=== PATIENT | male | born 1940 | race Caucasian/White ===

== ENCOUNTER 2018-09-09 12:37 | Outpatient (REF) | payer MEDICARE, BC, SELFPAY ==
[2018-09-09 21:46] LABS: Anion Gap 10.7 mmol/L (3-11); BUN 29 mg/dL (7-18); CO2 27.3 mmol/L (21.0-32.0); CREATININE 1.85 mg/dL (0.70-1.30); Calcium 9.6 mg/dL (8.5-10.1); Chloride 99 mmol/L (98-107); Cholesterol 132 mg/dL (50-200); Estimated GFR 35.44 (mL/min/1.73m2); Glucose 175 mg/dL (70-100); HDL Cholesterol 47 mg/dL (40-60); LDL CHOLESTEROL 64 mg/dL (<100); Magnesium 1.9 mg/dL (1.8-2.4); Potassium 4.5 mmol/L (3.5-5.1); Sodium 137 mmol/L (136-145); Triglyceride 157 mg/dL (30-150)
== END 2018-09-09 12:57 ==
LOC: NCHCN 12:37
PROVIDERS: PCP Specialist/Technologist Athletic Trainer; Visit Provider Specialist/Technologist Athletic Trainer
DX: E78.5 Hyperlipidemia, unspecified (principal); E11.9 Type 2 diabetes mellitus without complications; I10 Essential (primary) hypertension
CPT/HCPCS: 80048; 80061; 83721; 83735

== ENCOUNTER 2018-09-15 13:01 | Outpatient (REF) | payer MEDICARE, BC, SELFPAY ==
[2018-09-15 20:30] LABS: Anion Gap 12.8 mmol/L (3-11); BUN 20 mg/dL (7-18); CO2 25.2 mmol/L (21.0-32.0); CREATININE 1.85 mg/dL (0.70-1.30); Calcium 9.6 mg/dL (8.5-10.1); Chloride 99 mmol/L (98-107); Estimated GFR 35.44 (mL/min/1.73m2); Glucose 211 mg/dL (70-100); Potassium 4.5 mmol/L (3.5-5.1); Sodium 137 mmol/L (136-145)
== END 2018-09-15 13:21 ==
LOC: NCHCN 13:01
PROVIDERS: PCP Specialist/Technologist Athletic Trainer; Visit Provider Specialist/Technologist Athletic Trainer
DX: R94.4 Abnormal results of kidney function studies (principal)
CPT/HCPCS: 80048

== ENCOUNTER 2018-10-11 00:49 | Outpatient (CLI) | payer MEDICARE, BC, SELFPAY ==
--- NOTE | 2018-10-11 14:28 | DI.US_ITS ---
SYMPTOM/DIAGNOSIS: ELEVATED CREAT R94.4 RENAL ULTRASOUND: The right kidney measures 11.1 cm. There is a question of a 7 mm calculus. There is no evidence of hydronephrosis. The left kidney measures 10.2 cm and contains a 7 x 9 x 11 mm cyst. There is also a question regarding a 7 mm calculus. There is no evidence of hydronephrosis. The pre-void bladder contains 197 cc. The post void bladder contains 155 cc. The prostate is 63 cc SUMMARY: Question bilateral nonobstructing nephrolithiasis. The findings would be consistent with bladder outlet obstruction and prostatic enlargement.
== END 2018-10-11 01:09 ==
PROVIDERS: PCP Specialist/Technologist Athletic Trainer; Visit Provider Specialist/Technologist Athletic Trainer
DX: N20.0 Calculus of kidney (principal); R94.4 Abnormal results of kidney function studies; N28.1 Cyst of kidney, acquired; N40.2 Nodular prostate without lower urinary tract symptoms
CPT/HCPCS: 76770

== ENCOUNTER 2019-03-10 12:56 | Outpatient (REF) | payer MEDICARE, BC, SELFPAY ==
[2019-03-10 22:15] LABS: ALT 33 U/L (16-63); AST 24 U/L (15-37); Albumin 3.8 g/dL (3.4-5.0); Alkaline Phosphatase 68 U/L (46-116); Anion Gap 10.2 mmol/L (3-11); BUN 17 mg/dL (7-18); Bilirubin, Total 0.6 mg/dL (0.2-1.0); CO2 24.8 mmol/L (21.0-32.0); CREATININE 1.41 mg/dL (0.70-1.30); Calcium 9.1 mg/dL (8.5-10.1); Chloride 103 mmol/L (98-107); Estimated GFR 48.36 (mL/min/1.73m2); Glucose 182 mg/dL (70-100); Potassium 4.3 mmol/L (3.5-5.1); Sodium 138 mmol/L (136-145); Total Protein 7.1 g/dL (6.4-8.2)
== END 2019-03-10 13:16 ==
LOC: NCHCN 12:56
PROVIDERS: PCP Specialist/Technologist Athletic Trainer; Visit Provider Specialist/Technologist Athletic Trainer
DX: R94.4 Abnormal results of kidney function studies (principal)
CPT/HCPCS: 80053

== ENCOUNTER 2019-09-01 20:36 | Outpatient (REF) | payer MEDICARE, BC, SELFPAY ==
[2019-09-01 19:38] LABS: BUN 16 mg/dL (7-18); CREATININE 1.49 mg/dL (0.70-1.30); Estimated GFR 45.38 (mL/min/1.73m2)
== END 2019-09-01 20:56 ==
LOC: NCHCN 20:36
PROVIDERS: PCP Specialist/Technologist Athletic Trainer; Visit Provider Nurse Practitioner Family
DX: E11.9 Type 2 diabetes mellitus without complications (principal); N32.0 Bladder-neck obstruction; R94.4 Abnormal results of kidney function studies
CPT/HCPCS: 84520; 82565

== ENCOUNTER 2020-04-02 14:32 | Outpatient (REF) | payer MEDICARE, BC, SELFPAY ==
[2020-04-02 20:39] LABS: ALT 35 U/L (16-63); AST 32 U/L (15-37); Albumin 3.8 g/dL (3.4-5.0); Alkaline Phosphatase 66 U/L (46-116); Anion Gap 10.1 mmol/L (3-11); BUN 13 mg/dL (7-18); Bilirubin, Total 0.5 mg/dL (0.2-1.0); CO2 26.9 mmol/L (21.0-32.0); CREATININE 1.29 mg/dL (0.70-1.30); Calcium 9.2 mg/dL (8.5-10.1); Calculated LDL 79 mg/dL (<100); Chloride 104 mmol/L (98-107); Cholesterol 161 mg/dL (<200); Estimated GFR 53.46 (mL/min/1.73m2); Glucose 163 mg/dL (74-106); HDL Cholesterol 49 mg/dL (40-60); Potassium 4.3 mmol/L (3.5-5.1); Sodium 141 mmol/L (136-145); Triglyceride 167 mg/dL (<150)
== END 2020-04-02 14:52 ==
LOC: NCHCN 14:32
PROVIDERS: PCP Specialist/Technologist Athletic Trainer; Visit Provider Nurse Practitioner Family
DX: E78.5 Hyperlipidemia, unspecified (principal); E11.9 Type 2 diabetes mellitus without complications; I10 Essential (primary) hypertension; R94.4 Abnormal results of kidney function studies
CPT/HCPCS: 80053; 80061

== ENCOUNTER 2020-11-12 15:37 | Outpatient (REF) | payer MEDICARE, BC, SELFPAY ==
[2020-11-12 19:19] LABS: Anion Gap 13.5 mmol/L (3-11); BUN 20 mg/dL (7-18); CO2 23.5 mmol/L (21.0-32.0); CREATININE 1.7 mg/dL (0.70-1.30); Calcium 9.3 mg/dL (8.5-10.1); Chloride 99 mmol/L (98-107); Estimated GFR 38.88 (mL/min/1.73m2); Glucose 226 mg/dL (74-106); Potassium 4.6 mmol/L (3.5-5.1); Sodium 136 mmol/L (136-145)
[2020-11-12 19:23] LABS: Hemoglobin A1C 7.2 % (<5.7)
== END 2020-11-12 15:38 | disposition home or self-care (01) ==
LOC: NCHCN 15:37
PROVIDERS: PCP Specialist/Technologist Athletic Trainer; Visit Provider Nurse Practitioner Family
DX: E11.40 Type 2 diabetes mellitus with diabetic neuropathy, unspecified (principal); R94.4 Abnormal results of kidney function studies; R00.0 Tachycardia, unspecified
CPT/HCPCS: 80048; 83036

== ENCOUNTER 2020-11-16 13:25 | Outpatient (RCR) | payer MEDICARE, BC, SELFPAY ==
--- NOTE | 2020-11-16 14:30 | HOLTER_ITS ---
APPROVED REPORT Conclusion This is a 24-hour monitor ordered for indication of irregular heart rate The patient was in normal sinus rhythm for the majority the recording with an average heart rate of 8 3 bpm. There were no episodes of ventricular tachycardia and 6 brief runs of SVT with the longest lasting 7 beats. There were rare episodes of PVCs and PACs. There was no evidence of atrial fibrillation, no pauses greater than 3 seconds no evidence of high de gree heart block. There were 2 patient triggered events associated with a singular PAC and PVC.
== END 2020-11-26 23:59 | disposition home or self-care (01) ==
LOC: RT 13:25
PROVIDERS: PCP Specialist/Technologist Athletic Trainer; Visit Provider Nurse Practitioner Family
DX: I49.8 Other specified cardiac arrhythmias (principal); I49.1 Atrial premature depolarization; I49.3 Ventricular premature depolarization
CPT/HCPCS: 93227; 93225; 93226

== ENCOUNTER 2020-12-04 02:42 | Outpatient (CLI) | payer MEDICARE, BC, SELFPAY ==
--- NOTE | 2020-12-04 | DI.US_ITS ---
Exam(s) US RENAL EXAM: US RENAL CLINICAL HISTORY: ELEVATED CREATININE, R94.4. TECHNIQUE: Avendano scale, color and spectral Doppler were used. COMPARISON: US US renal from 10/11/2018 FINDINGS: Renal size in cm: Right: 10.2. Left: 10.3. Echogenicity: Normal. Hydronephrosis: No. Cyst or mass: There is a 2.6 x 2.4 x 2.2 cm simple cyst in the superior pole of the left kidney. Nephrolithiasis: No. Other findings: None. Bladder:Not well distended but grossly unremarkable. Ureteral jets: Right: Visualized and unremarkable. Left: Not seen on this examination. Prevoid vol:48 cc Postvoid vol:34 cc Prostate: 39 cc Renal color flow: Symmetric and within normal limits. IMPRESSION: 1. Limited evaluation of the urinary bladder due to incomplete distension. 2. 2.6 cm simple cyst in the superior pole of the left kidney. 3. No evidence of nephrolithiasis or hydronephrosis. DATA REPOSITORY:
== END 2020-12-04 03:02 ==
PROVIDERS: PCP Specialist/Technologist Athletic Trainer; Visit Provider Nurse Practitioner Family
DX: R94.4 Abnormal results of kidney function studies (principal); N28.1 Cyst of kidney, acquired
CPT/HCPCS: 76770

== ENCOUNTER 2021-01-07 13:01 | Outpatient (REF) | payer MEDICARE, BC, SELFPAY ==
[2021-01-07 21:38] LABS: Anion Gap 15.5 mmol/L (3-11); BUN 16 mg/dL (7-18); CO2 20.5 mmol/L (21.0-32.0); CREATININE 1.5 mg/dL (0.70-1.30); Calcium 9.1 mg/dL (8.5-10.1); Chloride 104 mmol/L (98-107); Estimated GFR 44.92 (mL/min/1.73m2); Glucose 282 mg/dL (74-106); Potassium 4.5 mmol/L (3.5-5.1); Sodium 140 mmol/L (136-145)
== END 2021-01-07 13:02 | disposition home or self-care (01) ==
LOC: NCHCN 13:01
PROVIDERS: PCP Specialist/Technologist Athletic Trainer; Visit Provider Nurse Practitioner Family
DX: R94.4 Abnormal results of kidney function studies (principal)
CPT/HCPCS: 80048

== ENCOUNTER 2022-02-03 17:42 | Outpatient (REF) | payer MEDICARE, BC, SELFPAY ==
[2022-02-03 16:45] LABS: Anion Gap 7.3 mmol/L (3-11); BUN 18 mg/dL (7-18); CO2 29.7 mmol/L (21.0-32.0); CREATININE 1.2 mg/dL (0.70-1.30); Calcium 8.9 mg/dL (8.5-10.1); Chloride 104 mmol/L (98-107); Estimated GFR 57.96 (mL/min/1.73m2); Glucose 202 mg/dL (74-106); Potassium 4.2 mmol/L (3.5-5.1); Sodium 141 mmol/L (136-145)
[2022-02-03 16:49] LABS: Hemoglobin A1C 7.5 % (<5.7)
== END 2022-02-03 17:43 | disposition home or self-care (01) ==
LOC: NCHCN 17:42
PROVIDERS: PCP Specialist/Technologist Athletic Trainer; Visit Provider Nurse Practitioner Family
DX: E11.49 Type 2 diabetes mellitus with other diabetic neurological complication (principal); I10 Essential (primary) hypertension
CPT/HCPCS: 80048; 83036

== ENCOUNTER 2023-02-02 13:50 | Outpatient (REF) | payer MEDICARE, BC, SELFPAY ==
[2023-02-02 15:39] LABS: Hemoglobin A1C 6.6 % (<5.7)
[2023-02-02 15:44] LABS: ALT 18 U/L (16-63); AST 19 U/L (15-37); Albumin 3.5 g/dL (3.4-5.0); Alkaline Phosphatase 83 U/L (46-116); Anion Gap 10.5 mmol/L (3-11); BUN 15 mg/dL (7-18); Bilirubin, Total 0.8 mg/dL (0.2-1.0); CO2 27.5 mmol/L (21.0-32.0); CREATININE 1.4 mg/dL (0.70-1.30); Calcium 9.2 mg/dL (8.5-10.1); Calculated LDL 54 mg/dL (<100); Chloride 103 mmol/L (98-107); Cholesterol 146 mg/dL (<200); Estimated GFR 49.87 (mL/min/1.73m2); Glucose 232 mg/dL (74-106); HDL Cholesterol 49 mg/dL (40-60); Potassium 4.3 mmol/L (3.5-5.1); Sodium 141 mmol/L (136-145); Total Protein 7.1 g/dL (6.4-8.2); Triglyceride 218 mg/dL (<150)
[2023-02-02 16:01] LABS: Vitamin D 25 Total 9.8 ng/mL (30-100)
== END 2023-02-02 13:51 | disposition home or self-care (01) ==
LOC: NCHCN 13:50
PROVIDERS: PCP Specialist/Technologist Athletic Trainer; Visit Provider Nurse Practitioner Family
DX: E11.49 Type 2 diabetes mellitus with other diabetic neurological complication (principal); R94.4 Abnormal results of kidney function studies; E55.9 Vitamin D deficiency, unspecified; R79.89 Other specified abnormal findings of blood chemistry
CPT/HCPCS: 80053; 80061; 82306; 83036

== ENCOUNTER 2023-05-04 14:55 | Outpatient (REF) | payer MEDICARE, BC, SELFPAY ==
[2023-05-04 16:12] LABS: Vitamin D 25 Total 25.3 ng/mL (30-100)
== END 2023-05-04 14:56 | disposition home or self-care (01) ==
LOC: NCHCN 14:55
PROVIDERS: PCP Specialist/Technologist Athletic Trainer; Visit Provider Nurse Practitioner Family
DX: E55.9 Vitamin D deficiency, unspecified (principal); E11.49 Type 2 diabetes mellitus with other diabetic neurological complication
CPT/HCPCS: 82306

== ENCOUNTER 2023-11-02 14:13 | Outpatient (REF) | payer MEDICARE, BC, SELFPAY ==
[2023-11-02 19:22] LABS: Hemoglobin A1C 6.7 % (<5.7)
[2023-11-02 19:25] LABS: ALT 25 U/L (16-63); AST 20 U/L (15-37); Albumin 3.9 g/dL (3.4-5.0); Alkaline Phosphatase 82 U/L (46-116); BUN 19 mg/dL (7-18); Bilirubin, Total 0.7 mg/dL (0.2-1.0); CREATININE 1.4 mg/dL (0.70-1.30); Calcium 9.7 mg/dL (8.5-10.1); Chloride 105 mmol/L (98-107); Estimated GFR 49.56 (mL/min/1.73m2); Glucose 143 mg/dL (74-106); Potassium 4.8 mmol/L (3.5-5.1); Sodium 144 mmol/L (136-145); Total Protein 7.1 g/dL (6.4-8.2)
[2023-11-02 20:15] LABS: Vitamin D 25 Total 26.6 ng/mL (30-100)
== END 2023-11-02 14:14 | disposition home or self-care (01) ==
LOC: NCHCN 14:13
PROVIDERS: PCP Specialist/Technologist Athletic Trainer; Visit Provider Nurse Practitioner Family
DX: E11.9 Type 2 diabetes mellitus without complications (principal); R94.4 Abnormal results of kidney function studies; E55.9 Vitamin D deficiency, unspecified
CPT/HCPCS: 80053; 82306; 83036

== ENCOUNTER 2024-03-10 16:19 | Outpatient (REF) | payer MEDICARE, BC, SELFPAY ==
[2024-03-10 16:25] LABS: ALT 26 U/L (16-63); AST 21 U/L (15-37); Albumin 3.3 g/dL (3.4-5.0); Alkaline Phosphatase 72 U/L (46-116); BUN 18 mg/dL (7-18); Bilirubin, Total 0.68 mg/dL (0.2-1.0); CREATININE 1.3 mg/dL (0.70-1.30); Calcium 9.3 mg/dL (8.5-10.1); Chloride 105 mmol/L (98-107); Estimated GFR 53.84 (mL/min/1.73m2); Glucose 221 mg/dL (74-106); Sodium 142 mmol/L (136-145); Total Protein 6.4 g/dL (6.4-8.2); Vitamin D 25 Total 38.7 ng/mL (30-100)
== END 2024-03-10 16:20 | disposition home or self-care (01) ==
LOC: NCHCN 16:19
PROVIDERS: PCP Specialist/Technologist Athletic Trainer; Visit Provider Nurse Practitioner Family
DX: E11.9 Type 2 diabetes mellitus without complications (principal); E55.9 Vitamin D deficiency, unspecified
CPT/HCPCS: 80053; 82306; 83036

== ENCOUNTER 2024-03-11 18:16 | Outpatient (REF) | payer MEDICARE, BC, SELFPAY ==
[2024-03-11 20:07] LABS: COMMENT (LAB VIEW ONLY) 136.56 mg/dL; Microalb ug/mg Crea 22.9 ug/mg Cr
== END 2024-03-11 18:17 | disposition home or self-care (01) ==
LOC: NCHCN 18:16
PROVIDERS: PCP Specialist/Technologist Athletic Trainer; Visit Provider Nurse Practitioner Family
DX: E11.9 Type 2 diabetes mellitus without complications (principal)
CPT/HCPCS: 82043; 82570

== ENCOUNTER 2024-07-26 15:24 | Outpatient (REF) | payer MEDICARE, BC, SELFPAY ==
[2024-07-26 16:15] LABS: Hemoglobin A1C 7.4 % (<5.7)
[2024-07-26 16:17] LABS: Anion Gap 6.4 mmol/L (3-11); BUN 20 mg/dL (7-18); CO2 30.6 mmol/L (21.0-32.0); CREATININE 1.4 mg/dL (0.70-1.30); Calcium 9.9 mg/dL (8.5-10.1); Calculated LDL 54 mg/dL (<100); Chloride 106 mmol/L (98-107); Cholesterol 129 mg/dL (<200); Estimated GFR 49.25 (mL/min/1.73m2); Glucose 167 mg/dL (74-106); HDL Cholesterol 46 mg/dL (40-60); NT-proBNP 1375 pg/mL (<300); Potassium 4.7 mmol/L (3.5-5.1); Sodium 143 mmol/L (136-145); Triglyceride 147 mg/dL (<150)
[2024-07-26 16:20] LABS: COMMENT (LAB VIEW ONLY) 81.98 mg/dL; Microalb ug/mg Crea 77.8 ug/mg Cr
== END 2024-07-26 15:25 | disposition home or self-care (01) ==
LOC: NCHCN 15:24
PROVIDERS: PCP Specialist/Technologist Athletic Trainer; Visit Provider Family Medicine
DX: E11.9 Type 2 diabetes mellitus without complications (principal); R06.00 Dyspnea, unspecified
CPT/HCPCS: 80048; 80061; 82043; 82570; 83036; 83880

== ENCOUNTER 2024-09-08 15:16 | Outpatient (REF) | payer MEDICARE, BC, SELFPAY ==
[2024-09-08 16:54] LABS: Anion Gap 6.2 mmol/L (3-11); BUN 17 mg/dL (7-18); CO2 32.8 mmol/L (21.0-32.0); CREATININE 1.2 mg/dL (0.70-1.30); Calcium 9.6 mg/dL (8.5-10.1); Chloride 108 mmol/L (98-107); Estimated GFR 59.26 (mL/min/1.73m2); Glucose 140 mg/dL (74-106); Sodium 147 mmol/L (136-145)
== END 2024-09-08 15:17 | disposition home or self-care (01) ==
LOC: NCHCN 15:16
PROVIDERS: PCP Specialist/Technologist Athletic Trainer; Visit Provider Nurse Practitioner Family
DX: R60.0 Localized edema (principal)
CPT/HCPCS: 80048

== ENCOUNTER 2025-01-07 08:46 | Observation (INO) | payer MEDICARE, BC, SELFPAY ==
[2025-01-07] VITALS (16 sets, daily range): BP systolic 111–174; BP diastolic 72–115; PULSE 84–143; RESP 16–28; TEMP 36.5–36.6; O2SAT 90–97
--- NOTE | 2025-01-07 08:45 | RT.EKG_ITS ---
APPROVED REPORT Exam: Resting ECG Reason for Exam: AMS Patient Location: E HR:108 bpm ECG Measurements Heart Rate 108 AXIS NM 112 P 79 QRSd 123 QRS 101 QT 347 T 41 QTc 465 Conclusion Sinus tachycardia, rate 108 RBBB, no priors available for comparsion Borderline ST elevation lead III, no contiguous lead changes or reciprocal changes, STEMI criteria is not met
--- NOTE | 2025-01-07 08:45 | DI.CT_ITS ---
Exam(s) CT BRAIN NECK CTA EXAM: CT BRAIN NECK CTA CLINICAL HISTORY: AMS, LWK 3am. TECHNIQUE: Imaging Protocol: Axial CT angiography was performed with multi- slice acquisition and multi-planar and MIP reconstructions. CONTRAST MATERIAL: Intravenous: Omnipaque 350 Contrast volume:70 ml COMPARISON: No exams were available for comparison FINDINGS: CT Head W/O and W contrast: Ventricles and Extra axial spaces: Normal in size and morphology for the patient's age. Hemorrhage: None. Cerebral parenchyma: No evidence of acute infarct or mass. Mild atrophy consistent with the patient's age. 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 Adjacent chronic calcifications. Midline shift: None. Brainstem/Cerebellum: No acute findings.. Calvarium: Normal. Visualized Paranasal sinuses/Mastoids: Clear. Soft Tissues: Unremarkable. Enhancement: Normal. Venous sinuses are patent. CTA Brain W: Internal Carotid Arteries: Right: No aneurysm, occlusion or significant stenosis. Left: No aneurysm, occlusion or significant stenosis. Middle Cerebral Arteries: Right: No aneurysm, occlusion or significant stenosis. Left: No aneurysm, occlusion or significant stenosis. Anterior Cerebral Arteries: Right: No aneurysm, occlusion or significant stenosis. Left: No aneurysm, occlusion or significant stenosis. Posterior cerebral Arteries: Right: No aneurysm, occlusion or significant stenosis. Left: No aneurysm, occlusion or significant stenosis. Vertebral Arteries: Right: No aneurysm, occlusion or significant stenosis. Left: No aneurysm, occlusion or significant stenosis. Basilar Artery: No aneurysm, occlusion or significant stenosis. CTA Neck W: Common Carotid: Calcifications of both common carotid bulbs, left greater than right. Right: No dissection, occlusion or significant stenosis. Left: No dissection, occlusion. Approximate 50 percent stenosis at the bulb. External Carotid: Right: No dissection, occlusion or significant stenosis. Left: No dissection, occlusion or significant stenosis. Internal Carotid: The internal carotid arteries course to the midline, anterior to the cervical spine in the midportion. Right: No dissection, occlusion or significant stenosis. Left: Mild stenosis proximally. No dissection, occlusion or significant stenosis. Vertebral Artery: Right: No dissection, occlusion or significant stenosis. Left: No dissection, occlusion or significant stenosis. Lung Apices: No acute findings. Bones: No acute abnormality. Degenerative changes in the cervical spine. Soft Tissues: Normal. IMPRESSION: 1. CTA brain: Normal CTA examination of the [place]. 2. Head CT: No acute abnormality. Old left parietal infarct. 3. CTA neck: Calcific plaque at the common carotid bulbs, left greater than right. There is moderate stenosis of the left common carotid bulb and mild stenosis at the origin of the left internal carotid artery. No evidence of occlusion or dissection. The preliminary [facility] report was reviewed. RADIATION DOSE DELIVERED: Total DLP DATA REPOSITORY: All CT scans at this facility are submitted to the National Radiology Data Registry (NRDR) Dose Index Registry (DIR) with the [employer] (ACR). RADIATION OPTIMIZATION: All CT scans at this facility use at least one of these dose optimization techniques: automated exposure control; mA and/or kV adjustment per patient size (includes targeted exams where dose is matched to clinical indication); or iterative reconstruction.
--- NOTE | 2025-01-07 08:58 | W.ED.GENAD ---
Discharge Plan Disposition Patient Disposition: Admit to [facility] Condition: Fair Discharge Details Clinical Impression: Acute alteration in mental status, Tachycardia Primary Care Provider: Valery Cash ED Provider: Renetta Mejias Home Meds and New Rx's Prescriptions: No Action losartan 50 mg tablet 50 mg PO DAILY glipizide 5 mg tablet 5 mg PO DAILY Jardiance 10 mg tablet 20 mg PO DAILY metoprolol succinate 50 mg tablet extended release 24 hr 100 mg PO DAILY HPI General Mode of arrival: EMS. Date/Time Provider Initiated Documentation: 01/07/25 08:57. Limitations to Documentation: no limitations. Information obtained by: patient, family, EMS and old records reviewed. HPI Narrative: This is an 84-year-old male patient with a past medical history significant for diabetes and hypertension who is presenting for evaluation of altered mental status. The history is obtained from the patient's as well as EMS. He was last seen normal last night when he went to bed, the patient's states that he typically is up for a great deal of the night watching television, and she noted him at 3 AM to be making a snack and acting normally. This morning around 715 she found him sitting on the toilet with his pants fully pulled up, not speaking normally and moving very slowly. He is typically awake, alert, oriented, and independent. EMS was summoned, noted a nonischemic twelve-lead, otherwise vital signs were stable and he had no unilateral stroke deficits. Only recent medication change is the initiation of Jardiance for his diabetes. No reported chest pain, shortness of breath, abdominal pain, dysuria or hematuria, no recent trauma or injuries, patient does not take Related Data Home Medications ?Medication ?Instructions ?Recorded ?Confirmed empagliflozin 10 mg tablet 20 mg PO DAILY 01/07/25 01/07/25 (Jardiance) glipizide 5 mg tablet 5 mg PO DAILY 01/07/25 01/07/25 losartan 50 mg tablet 50 mg PO DAILY 01/07/25 01/07/25 metoprolol succinate 50 mg 100 mg PO DAILY 01/07/25 01/07/25 tablet,extended release 24 hr General Stated Complaint: AMS/LOC DIRK: 2 Exam Narrative Exam Narrative: Gen: awake and alert, in no apparent distress. Appears well nourished. HEENT: PERRL, EOMs full and without nystagmus. External ears and nose normal, mucous membranes moist. Neck: Supple, full range of motion, no observable masses Lungs: No increased work of breathing, lung sounds clear and equal bilaterally without wheezes, rhonchi, or rales. CV: Heart with regular rate and rhythm, no murmurs auscultated. Strong and symmetrical radial pulses. Abdomen: Soft, nondistended, non-tender to palpation. No rigidity, rebound tenderness, or guarding. MSK: No joint swelling, no redness. Full ROM without limitation, no external traumatic findings. Skin: No rashes or lesions to visualized skin. Normal color, warm, and dry. Neuro: Cranial nerves II-XII intact and symmetrical bilaterally, though the patient is quite slow to follow commands. 4/5 strength in all muscle groups x4 extremities. No sensory deficits reported. Gait deferred. The patient does exhibit left sided inattention/extinction of the lower extremities. Course Vital Signs Vital signs: Vital Signs Temperature 36.6 C 01/07/25 08:54 Pulse 117 H 01/07/25 08:54 Respiratory Rate 22 01/07/25 08:54 Blood Pressure 154/98 H 01/07/25 08:54 Pulse Oximetry 97 01/07/25 08:54 Temperature 36.6 C 01/07/25 08:54 Temperature Source Tympanic 01/07/25 08:54 Pulse 117 H 01/07/25 08:54 Respiratory Rate 22 01/07/25 08:54 Blood Pressure 154/98 H 01/07/25 08:54 Pulse Oximetry 97 01/07/25 08:54 Oxygen Delivery Method Room Air 01/07/25 08:54 Oxygen Flow Rate 0 01/07/25 08:54 Medical Decision Making This is an 84-year-old male patient presenting for evaluation of altered mental status. My differential includes but is not limited to CVA, intracranial hemorrhage, intracranial mass/mass effect, vascular abnormalities including AVM, subarachnoid hemorrhage, dissection, aneurysm. No trauma to suggest head injury, certainly considered metabolic and electrolyte derangements, kidney issues, urinary tract infection, liver disease. The patient has been tolerating oral intake and has a lower concern for dehydration, considered anemia. The patient's reports that he does not drink alcohol making withdrawal or intoxication syndromes less likely. No reported seizure activity and the patient is awake and aware. We will proceed with CTA of the head and neck to evaluate for intracranial abnormalities that could cause this patient's symptoms. The patient does have a seafood allergy and I consulted with our radiology team who notes that this is not a contraindication to intravenous contrast. We will obtain an EKG, and laboratory studies to include CBC, CMP, magnesium, troponin, and INR. I will obtain a urinalysis, and consult [facility] teleneuro. I obtained an EKG which I reviewed, which shows a sinus tachycardia without evidence of ischemia, does show a right bundle branch block, no priors available for comparison. - I independently interpreted the laboratory studies, which show no significant leukocytosis, anemia, or thrombocytopenia. The chemistry panel is without evidence of electrolyte abnormality, kidney dysfunction, or liver injury. I did obtain a lactate and blood cultures given the ongoing tachycardia and tachypnea, though the patient is reassuringly without fever or hypotension. Lactate was not significantly elevated, troponin was negative and without interval increase on 1 hour delta recheck. Urinalysis with trace blood and glucosuria but no evidence for urinary tract infection. CTA of the brain and neck was reviewed by myself and shows no evidence of intracranial hemorrhage or large vessel occlusion. Department teleneuro evaluated the patient and recommend admission for MRI, which we will not be able to be performed until Thursday, they state that this is reasonable and recommended no acute interventions such as thrombectomy or tPA. I did obtain a chest x-ray and provide the patient with a liter of IV fluid for his tachycardia. He does have some prominent pulmonary vasculature and I discussed with the hospitalist service the amount of fluid that he received in the ED. His tachycardia persists and per family he has not yet had any of his morning medications, and so I provided him with a dose of metoprolol and losartan. I will hold on his diabetes medications to allow the hospitalist to manage his blood glucose as they see fit while hospitalized. The patient was transferred to the hospitalist service without incident, and remained without hemodynamic concerns otherwise while under my care. Renetta Mejias MD [facility] All Active Problems (Updated 01/07/25 @ 13:10 by Renetta Mejias MD) Tachycardia (Acute) Acute alteration in mental status (Acute) Social History Smoking/Tobacco Use Status: Unknown Smoking risk assessment performed?: Yes Alcohol Intake: current Substance use type: does not use
[2025-01-07 09:08] LABS: Abs Immature Grans 0.03 10^3/uL (0.0-0.06); HCT 49.1 % (40.0-50.0); HGB 15.4 g/dL (13.5-17.5); Immature Grans % 0.4 %; MCH 26.7 pg (27.0-33.0); MCHC 31.4 % (32.0-36.0); MCV 85 fL (80-95); MPV 10.1 fL (8.0-11.0); Platelet Count 221 10^3/uL (130-400); RBC 5.76 10^6/uL (4.36-5.78); RDW 15.2 % (11.8-14.1); RDW-SD 47.5 fL; WBC 8.38 10^3/uL (4.4-10.8)
[2025-01-07] MEDS: Omnipaque 350 MG/ML 100 ML BTL IJ (09:10)
[2025-01-07] MEDS: Normal Saline - Diluent 50 ML VIAL IJ (09:11)
[2025-01-07 09:25] LABS: ALT 27 U/L (16-63); AST 22 U/L (15-37); Albumin 3.5 g/dL (3.4-5.0); Alkaline Phosphatase 94 U/L (46-116); Anion Gap 8.2 mmol/L (3-11); BUN 16 mg/dL (7-18); Bilirubin, Total 0.8 mg/dL (0.2-1.0); CO2 28.8 mmol/L (21.0-32.0); Calcium 9.2 mg/dL (8.5-10.1); Chloride 104 mmol/L (98-107); Estimated GFR 53.84 (mL/min/1.73m2); Glucose 164 mg/dL (74-106); Magnesium 2.0 mg/dL (1.8-2.4); Potassium 4.2 mmol/L (3.5-5.1); Sodium 141 mmol/L (136-145); Total Protein 7.3 g/dL (6.4-8.2); Troponin I 17 ng/L (<or=76)
[2025-01-07 09:27] LABS: INR 1.1 (0.9-1.1); Prothrombin Time 10.8 sec (9.1-11.1)
--- NOTE | 2025-01-07 09:39 | DI.[facility]_ITS ---
PROCEDURE INFORMATION: Exam: CTA Head Without And With Contrast, Arteriography Exam date and time: 01/07/2025 9:11 AM Age: 84 years old Clinical indication: Stroke-like symptoms; Other: AMS, lwk 3am TECHNIQUE: Imaging protocol: Computed tomographic angiography of the head without and with contrast. Exam focused on the arteries. 3D rendering (Not supervised by radiologist): MIP and/or 3D reconstructed images were created by the technologist. Radiation optimization: All CT scans at this facility use at least one of these dose optimization techniques: automated exposure control; mA and/or kV adjustment per patient size (includes targeted exams where dose is matched to clinical indication); or iterative reconstruction. Contrast material: OMNIPAQUE 350; Contrast volume: 70 ml; Contrast route: INTRAVENOUS (IV); Other technique: STROKE PROTOCOL was implemented. COMPARISON: No relevant prior studies available. FINDINGS: ANTERIOR CIRCULATION: Right internal carotid artery: Intracranial segment is patent with no significant stenosis or occlusion. No aneurysm. Right middle cerebral artery: No occlusion or significant stenosis. No aneurysm. Right anterior cerebral artery: No occlusion or significant stenosis. No aneurysm. Left internal carotid artery: Intracranial segment is patent with no significant stenosis. No aneurysm. Left middle cerebral artery: No occlusion or significant stenosis. No aneurysm. Left anterior cerebral artery: No occlusion or significant stenosis. No aneurysm. POSTERIOR CIRCULATION: Right vertebral artery: No occlusion or significant stenosis. No aneurysm. Left vertebral artery: No occlusion or significant stenosis. No aneurysm. Basilar artery: No occlusion or significant stenosis. No aneurysm. Right posterior cerebral artery: No occlusion or significant stenosis. No aneurysm. Left posterior cerebral artery: No occlusion or significant stenosis. No aneurysm. HEAD: Brain: Normal. No hemorrhage. Unremarkable white matter. No mass effect. Cerebral ventricles: Normal. No ventriculomegaly. Bones: Unremarkable. No acute fracture. Paranasal sinuses: Visualized sinuses are normal. No fluid levels. Mastoid air cells: Visualized mastoids are normal. No mastoid effusion. Soft tissues: Unremarkable. IMPRESSION: 1. No large vessel occlusion. 2. Unremarkable CT head. ASSESSMENT: ASPECTS ([place] Stroke Program Early CT Score) is 10. PROCEDURE INFORMATION: Exam: CTA Neck Without And With Contrast Exam date and time: 01/07/2025 9:11 AM Age: 84 years old Clinical indication: Stroke-like symptoms; Other: AMS, lwk 3am TECHNIQUE: Imaging protocol: Computed tomographic angiography of the neck without and with contrast. Exam focused on the cervical segments of the vasculature. 3D rendering (Not supervised by radiologist): MIP and/or 3D reconstructed images were created by the technologist. Radiation optimization: All CT scans at this facility use at least one of these dose optimization techniques: automated exposure control; mA and/or kV adjustment per patient size (includes targeted exams where dose is matched to clinical indication); or iterative reconstruction. Contrast material: OMNIPAQUE 350; Contrast volume: 70 ml; Contrast route: INTRAVENOUS (IV); COMPARISON: No relevant prior studies available. FINDINGS: Right common carotid artery: No stenosis. No dissection or occlusion. Right internal carotid artery: No stenosis of the extracranial segment. No dissection or occlusion. Right external carotid artery: No occlusion or stenosis of the origin. Left common carotid artery: No stenosis. No dissection or occlusion. Left internal carotid artery: No stenosis of the extracranial segment. No dissection or occlusion. Left external carotid artery: No occlusion or stenosis of the origin. Right vertebral artery: No stenosis. No dissection or occlusion. Left vertebral artery: No stenosis. No dissection or occlusion. Soft tissues: Normal. No significant soft tissue swelling. Bones/joints: No acute fracture. IMPRESSION: No stenosis or occlusion. REFERENCES: NASCET CRITERIA. The degree of stenosis in the cervical segment of the internal carotid artery is based on NASCET criteria. Normal is no stenosis. Mild is less than 50% stenosis. Moderate is 50-69% stenosis. Severe is 70% to 99% stenosis. Total occlusion is no detectable patent lumen. Dictated and Authenticated by: Yue Urban MD. Orderin St. Aj Jackson MD
[2025-01-07] MEDS: Lactated Ringers 1,000 ML 1000 ML IV (10:00)
[2025-01-07 10:10] LABS: Glucose >=1000 mg/dL (Negative)
--- NOTE | 2025-01-07 10:15 | DI.RAD_ITS ---
Exam(s) XR PORTABLE CHEST AP EXAM: XR PORTABLE CHEST AP CLINICAL HISTORY: eval PNA TECHNIQUE: 2D digital imaging was performed. COMPARISON: No exams were available for comparison FINDINGS: Exam is limited by under penetration. Lungs are suboptimally inflated. LUNGS: Pulmonary vascular prominence. Mild peribronchial thickening. The findings could indicate mild CHF. No focal area of consolidation. No pleural abnormality seen. HEART: Normal size. AORTA: Normal diameter for projection. BONES: Unremarkable for age. Soft tissues: Unremarkable. IMPRESSION: No area of focal consolidation. Mild peribronchial thickening pulmonary vascular prominence could indicate mild CHF. The preliminary [facility] report was reviewed. DATA REPOSITORY: RADIATION DOSE DELIVERED:
[2025-01-07 10:41] LABS: Troponin I 15 ng/L (<or=76)
--- NOTE | 2025-01-07 11:11 | DI.[facility]_ITS ---
PROCEDURE INFORMATION: Exam: XR Chest Exam date and time: 01/07/2025 11:06 AM Age: 84 years old Clinical indication: Other: Eval pna TECHNIQUE: Imaging protocol: Radiologic exam of the chest. Views: 1 view. COMPARISON: No relevant prior studies available. FINDINGS: Lungs: Diffuse prominence of the pulmonary interstitium. No lobar consolidation Pleural spaces: Unremarkable. No pleural effusion. No pneumothorax. Heart/Mediastinum: Unremarkable. No cardiomegaly. Bones/joints: Unremarkable. IMPRESSION: Diffuse prominence of the pulmonary interstitium. No lobar consolidation Dictated and Authenticated by: Yeu Urban MD. Orderin St. Aj Jackson MD
[2025-01-07 11:38] LABS: C & S Indicated? No; RBC 0-2 HPF (0-2); WBC 0-2 HPF (0-5)
--- NOTE | 2025-01-07 11:50 | W.PM.HP.N ---
Date of service: 01/07/25 Time of Service: 11:30 Assessment and Plan Assessment and plan (1) Acute alteration in mental status: Status: Acute Assessment and plan: Stroke workup, will have MRI and echo on Thursday A1C 7.8, lipid panel moderately elevated, TSH unremarkable. PT/OT evaluation Unlikely nonanion gap metabolic acidosis per labs, will not get ABG Hold empagliflozin. Will give sliding scale insulin, CHO diet Continue antihypertensives. (2) Tachycardia: Status: Acute Assessment and plan: HR up to 139 in the ED, now in the 100's Monitor on telemetry History of Present Illness History of Present Illness Chief Complaint: acute encephalopathy Narrative: Mukul Lujan is an 84 year old man presenting January 07 with acute change in mental status, found to be tachycardic, with concern for CVA. Last known well around 299, symptoms noted at 714 when patient was found on the toilet fully clothed. Patient has HTN and DM with recent start of empagliflozin. Patient is not able to follow questions and information is taken from the medical record and patient's . He has not had a stroke before. He appears comfortable. 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 CXR suggestive of CHF. Teleneurology was consulted and recommended no intervention, MRI when able. PMH includes HTN on losartan, metoprolol, furosemide; DM on glipizide, empagliflozin; BPH on tamsulosin PFSH All Active Problems (Updated 01/07/25 @ 13:10 by Renetta Mejias MD) Tachycardia (Acute) Acute alteration in mental status (Acute) Social History Smoking/Tobacco Use Status: Unknown Smoking risk assessment performed?: Yes Alcohol Intake: current Substance use type: does not use Housing: house Meds Allergies and Home Medications Allergies Allergy/AdvReac Type Severity Reaction Status Date / Time aspartame AdvReac Intermediate Dizziness/L Verified 01/07/25 15:28 ighthead Home Medications ?Medication ?Instructions ?Recorded ?Confirmed ?Type cyclosporine 0.05 % eye drops in a 1 drp ophthalmic (eye) Q12H 01/07/25 01/07/25 History dropperette (Restasis) empagliflozin 10 mg tablet 20 mg PO DAILY 01/07/25 01/07/25 History (Jardiance) furosemide 20 mg tablet (Lasix) 20 mg PO DAILY PRN 01/07/25 01/07/25 History glipizide 5 mg tablet 5 mg PO DAILY 01/07/25 01/07/25 History losartan 50 mg tablet 50 mg PO DAILY 01/07/25 01/07/25 History metoprolol succinate 50 mg 100 mg PO DAILY 01/07/25 01/07/25 History tablet,extended release 24 hr tamsulosin 0.4 mg capsule (Flomax) 0.4 mg PO QHS 01/07/25 01/07/25 History Exam Narrative Exam Narrative: General: This is a well-nourished, elderly man in no acute distress HEENT: Normocephalic, atraumatic CV: RRR Resp: CTAB Abd: NTND +NBS MSK: normal tone, well perfused extremities Skin: warm and dry Neuro: Awake and alert with slow responses, some confusion. Much slower voluntary motion in left leg than in right. Results Imaging Imaging Studies: * * * * * EXAM: CT BRAIN NECK CTA IMPRESSION: 1. CTA brain: Normal CTA examination of the [place]. 2. Head CT: No acute abnormality. Old left parietal infarct. 3. CTA neck: Calcific plaque at the common carotid bulbs, left greater than right. There is moderate stenosis of the left common carotid bulb and mild stenosis at the origin of the left internal carotid artery. No evidence of occlusion or dissection. Dictated By: Shahla Light M.D. 01/07/25 1104 * * * * * EXAM: XR PORTABLE CHEST AP IMPRESSION: No area of focal consolidation. Mild peribronchial thickening pulmonary vascular prominence could indicate mild CHF. Dictated By: Shahla Light M.D. 01/07/25 1306 * * * * * Labs 01/07/25 09:00 01/07/25 09:00 Labs: Laboratory Results - last 24 hr 01/07/25 01/07/25 01/07/25 09:00 10:05 10:10 WBC 8.38 RBC 5.76 Hgb 15.4 Hct 49.1 MCV 85 MCH 26.7 L MCHC 31.4 L RDW 15.2 H Plt Count 221 MPV 10.1 Immature Gran % 0.4 Neutrophils % 69.0 Lymphocytes % 20.3 Monocytes % 7.3 Eosinophils % 2.4 Basophils % 0.6 Nucleated RBC % 0.0 Absolute Neutrophils 5.79 Absolute Lymphocytes 1.70 Absolute Monocytes 0.61 Absolute Eosinophils 0.20 Absolute Basophils 0.05 PT 10.8 INR 1.1 VBG Lactate 1.9 Sodium 141 Potassium 4.2 Chloride 104 Carbon Dioxide 28.8 Anion Gap 8.2 BUN 16 Creatinine 1.3 Est GFR (CKD-EPI 2020) 53.84 Glucose 164 H Calcium 9.2 Magnesium 2.0 Total Bilirubin 0.8 AST 22 ALT 27 Alkaline Phosphatase 94 Troponin I 17 15 Total Protein 7.3 Albumin 3.5 Urine Color Yellow Urine Clarity Clear Urine pH 5.5 Ur Specific [place] 1.015 Urine Protein Negative Urine Ketones Negative Urine Blood Trace-intact H Urine Nitrite Negative Urine Bilirubin Negative Urine Urobilinogen 0.2 Ur Leukocyte Esterase Negative Urine RBC 0-2 Urine WBC 0-2 Ur Epithelial Cells Few Urine Crystals Negative Urine Bacteria Negative Urine Casts Negative Urine Mucus Negative Ur Culture Indicated? No Urine Glucose >=1000 H 01/07/25 11:57 WBC RBC Hgb Hct MCV MCH MCHC RDW Plt Count MPV Immature Gran % Neutrophils % Lymphocytes % Monocytes % Eosinophils % Basophils % Nucleated RBC % Absolute Neutrophils Absolute Lymphocytes Absolute Monocytes Absolute Eosinophils Absolute Basophils PT INR VBG Lactate Sodium Potassium Chloride Carbon Dioxide Anion Gap BUN Creatinine Est GFR (CKD-EPI 2020) Glucose Calcium Magnesium Total Bilirubin AST ALT Alkaline Phosphatase Troponin I Cancelled Total Protein Albumin Urine Color Urine Clarity Urine pH Ur Specific [place] Urine Protein Urine Ketones Urine Blood Urine Nitrite Urine Bilirubin Urine Urobilinogen Ur Leukocyte Esterase Urine RBC Urine WBC Ur Epithelial Cells Urine Crystals Urine Bacteria Urine Casts Urine Mucus Ur Culture Indicated? Urine Glucose Last Vital Signs Temp 36.6 C 01/07/25 08:54 Pulse 117 H 01/07/25 08:54 Resp 16 01/07/25 11:27 BP 154/98 H 01/07/25 08:54 Pulse Ox 97 01/07/25 08:54 Time Spent Time spent with Patient: 40-54 minutes Time was spent: preparing to see the patient(eg.review tests), obtaining and/or reviewing separately otained hiistory, ordering medications,tests, procedures, referring, communicating with other health child care aide, indepentently interpreting results, counseling the patient and care coordination
[2025-01-07 12:19] LABS: Hemoglobin A1C 7.8 % (<5.7)
[2025-01-07 12:29] LABS: Calculated LDL 120 mg/dL (<100); Cholesterol 213 mg/dL (<200); HDL Cholesterol 43 mg/dL (>or=40); TSH 1.43 uIU/mL (0.36-3.74); Triglyceride 250 mg/dL (<150)
[2025-01-07] MEDS: Metoprolol CR 50 MG TABCR 100 MG PO (13:12)
[2025-01-07] MEDS: Losartan 50 MG TAB PO (13:12)
--- NOTE | 2025-01-07 16:34 | W.PC.ACHO ---
Registration Status: ADM NITIN Primary Language: Preferred Language: Yakut ED Information & Data Chief Complaint AMS/LOC 01/07/25 11:27 Chief Complaint AMS/LOC 01/07/25 08:58 Triage Note ams since 7am, states 01/07/25 08:54 he was sitting on the toilet with his pants on, and was not able to answer her Most Recent Vital Signs Temperature 36.6 C 01/07/25 15:50 Temperature Source Temporal Artery Scan 01/07/25 15:50 Pulse 109 H 01/07/25 15:50 Pulse Rhythm Regular 01/07/25 15:51 Pulse 109 H 01/07/25 15:15 Respiratory Rate 20 01/07/25 15:50 Respiratory Effort Normal, Non-Labored 01/07/25 15:51 Respiratory Depth Normal 01/07/25 15:51 Respiratory Pattern Normal 01/07/25 15:51 Blood Pressure 127/83 01/07/25 15:50 Blood Pressure Mean 97 01/07/25 15:50 Pulse Oximetry 96 01/07/25 15:50 Oxygen Delivery Method Room Air 01/07/25 15:50 Oxygen Flow Rate 0 01/07/25 15:50 Pain Level 0 01/07/25 15:50 Allergies aspartame Adverse Reaction (Intermediate, Verified 01/07/25 15:28) Dizziness/Lighthead Precautions Isolation Standard precaution 01/07/25 11:27 Active Medications Generic Name Dose Route Start Last Admin Trade Name Freq PRN Reason Stop Dose Admin Iohexol 100 ml 01/07/25 09:15 01/07/25 09:10 Omnipaque 350 Mg/Ml 100 Ml Btl IJ 02/06/25 23:59 70 ml DIRECTED RUBI Administration Sodium Chloride 50 ml 01/07/25 09:15 01/07/25 09:11 Normal Saline - Diluent 50 Ml Vial IJ 50 ml .FOR DI USE RUBI Administration IV IV Catheter Type [Left Forearm Saline Lock ] IV Catheter Gauge [Left 20 Forearm] Diagnostics 01/07/25 01/07/25 01/07/25 Range/Units 11:57 10:10 10:05 WBC (4.4-10.8) 10^3/uL RBC (4.36-5.78) 10^6/uL Hgb (13.5-17.5) g/dL Hct (40.0-50.0) % MCV (80-95) fL MCH (27.0-33.0) pg MCHC (32.0-36.0) % RDW (11.8-14.1) % Plt Count (130-400) 10^3/uL MPV (8.0-11.0) fL Immature Gran % % Neutrophils % % Lymphocytes % % Monocytes % % Eosinophils % % Basophils % % Nucleated RBC % (0.0-0.3) % Absolute Neutrophils (1.2-6.7) 10^3/uL Absolute Lymphocytes (1.2-3.4) 10^3/uL Absolute Monocytes (0.1-0.8) 10^3/uL Absolute Eosinophils (0.0-0.7) 10^3/uL Absolute Basophils (0.0-0.2) 10^3/uL PT (9.1-11.1) sec INR (0.9-1.1) VBG Lactate 1.9 (<or=2.0) mmol/L Sodium (136-145) mmol/L Potassium (3.5-5.1) mmol/L Chloride (98-107) mmol/L Carbon Dioxide (21.0-32.0) mmol/L Anion Gap (3-11) mmol/L BUN (7-18) mg/dL Creatinine (0.70-1.30) mg/dL Est GFR (CKD-EPI 2020) (mL/min/1.73m2) Glucose (74-106) mg/dL Hemoglobin A1c (<5.7) % Calcium (8.5-10.1) mg/dL Magnesium (1.8-2.4) mg/dL Total Bilirubin (0.2-1.0) mg/dL AST (15-37) U/L ALT (16-63) U/L Alkaline Phosphatase (46-116) U/L Troponin I Cancelled 15 (<or=76) ng/L Total Protein (6.4-8.2) g/dL Albumin (3.4-5.0) g/dL Triglycerides (<150) mg/dL Total Cholesterol (<200) mg/dL LDL Cholesterol, Calc (<100) mg/dL HDL Cholesterol (>or=40) mg/dL TSH (0.36-3.74) uIU/mL Urine Color Yellow (Yellow) Urine Clarity Clear (Clear) Urine pH 5.5 (5-8) Ur Specific [place] 1.015 (1.005-1.025) Urine Protein Negative (Neg-Trace) mg/dL Urine Ketones Negative (Negative) mg/dL Urine Blood Trace-intact H (Negative) Urine Nitrite Negative (Negative) Urine Bilirubin Negative (Negative) Urine Urobilinogen 0.2 (Up to 0.2) mg/dL Ur Leukocyte Esterase Negative (Negative) Urine RBC 0-2 (0-2) HPF Urine WBC 0-2 (0-5) HPF Ur Epithelial Cells Few (Negative) HPF Urine Crystals Negative (Negative) HPF Urine Bacteria Negative (Negative) HPF Urine Casts Negative (Negative) LPF Urine Mucus Negative (Negative) Ur Culture Indicated? No Urine Glucose >=1000 H (Negative) mg/dL 01/07/25 Range/Units 09:00 WBC 8.38 (4.4-10.8) 10^3/uL RBC 5.76 (4.36-5.78) 10^6/uL Hgb 15.4 (13.5-17.5) g/dL Hct 49.1 (40.0-50.0) % MCV 85 (80-95) fL MCH 26.7 L (27.0-33.0) pg MCHC 31.4 L (32.0-36.0) % RDW 15.2 H (11.8-14.1) % Plt Count 221 (130-400) 10^3/uL MPV 10.1 (8.0-11.0) fL Immature Gran % 0.4 % Neutrophils % 69.0 % Lymphocytes % 20.3 % Monocytes % 7.3 % Eosinophils % 2.4 % Basophils % 0.6 % Nucleated RBC % 0.0 (0.0-0.3) % Absolute Neutrophils 5.79 (1.2-6.7) 10^3/uL Absolute Lymphocytes 1.70 (1.2-3.4) 10^3/uL Absolute Monocytes 0.61 (0.1-0.8) 10^3/uL Absolute Eosinophils 0.20 (0.0-0.7) 10^3/uL Absolute Basophils 0.05 (0.0-0.2) 10^3/uL PT 10.8 (9.1-11.1) sec INR 1.1 (0.9-1.1) VBG Lactate (<or=2.0) mmol/L Sodium 141 (136-145) mmol/L Potassium 4.2 (3.5-5.1) mmol/L Chloride 104 (98-107) mmol/L Carbon Dioxide 28.8 (21.0-32.0) mmol/L Anion Gap 8.2 (3-11) mmol/L BUN 16 (7-18) mg/dL Creatinine 1.3 (0.70-1.30) mg/dL Est GFR (CKD-EPI 2020) 53.84 (mL/min/1.73m2) Glucose 164 H (74-106) mg/dL Hemoglobin A1c 7.8 H (<5.7) % Calcium 9.2 (8.5-10.1) mg/dL Magnesium 2.0 (1.8-2.4) mg/dL Total Bilirubin 0.8 (0.2-1.0) mg/dL AST 22 (15-37) U/L ALT 27 (16-63) U/L Alkaline Phosphatase 94 (46-116) U/L Troponin I 17 (<or=76) ng/L Total Protein 7.3 (6.4-8.2) g/dL Albumin 3.5 (3.4-5.0) g/dL Triglycerides 250 H (<150) mg/dL Total Cholesterol 213 H (<200) mg/dL LDL Cholesterol, Calc 120 H (<100) mg/dL HDL Cholesterol 43 (>or=40) mg/dL TSH 1.43 (0.36-3.74) uIU/mL Urine Color (Yellow) Urine Clarity (Clear) Urine pH (5-8) Ur Specific [place] (1.005-1.025) Urine Protein (Neg-Trace) mg/dL Urine Ketones (Negative) mg/dL Urine Blood (Negative) Urine Nitrite (Negative) Urine Bilirubin (Negative) Urine Urobilinogen (Up to 0.2) mg/dL Ur Leukocyte Esterase (Negative) Urine RBC (0-2) HPF Urine WBC (0-5) HPF Ur Epithelial Cells (Negative) HPF Urine Crystals (Negative) HPF Urine Bacteria (Negative) HPF Urine Casts (Negative) LPF Urine Mucus (Negative) Ur Culture Indicated? Urine Glucose (Negative) mg/dL 01/07/25 10:45 Blood Culture - Pending Blood 01/07/25 10:25 Blood Culture - Pending Blood Intake and Output - 24 Hour Total 01/07/25 08:37 thru 01/07/25 14:10 Intake Total 1000 Output Total 375 Balance 625 Weight 110.223 kg Intake: IV 1000 Output: Urine 375 Falls Risk Assessment History of Falls Previous History 01/07/25 15:51 Contributing Factors Impairments 01/07/25 15:51 Ambulatory Aids Independent 01/07/25 15:51 Tubes/Lines None 01/07/25 15:51 Gait Evaluation W/no contributing factors 01/07/25 15:51 Cognition Cognitive impairment 01/07/25 15:51 Fall Total Score 43 01/07/25 15:51 Level of Risk Moderate Risk 01/07/25 15:51 v v v v v v v v v Sending and/or Receiving Nurses: Please use comment section below to note any information pertinent to the patient hand-off not included above. Information / Comments: report received, all questions answered. Report received from: received report from CHRISTIE Castillo@ [phone]
[2025-01-07] MEDS: Normal Saline Flush 10 ML SYR IVP (20:08)
[2025-01-07] MEDS: Tamsulosin 0.4 MG CAPCR PO (20:08)
[2025-01-08 08:01] VITALS: BP 149/81; PULSE 121; RESP 18; TEMP 37; O2SAT 93
[2025-01-08] MEDS: Metoprolol CR 50 MG TABCR 100 MG PO (08:16)
[2025-01-08] MEDS: Losartan 50 MG TAB PO (08:16)
[2025-01-08] MEDS: Normal Saline Flush 10 ML SYR IVP ×3 (08:17→21:21)
[2025-01-08] MEDS: Insulin Aspart 300 UNITS/3 ML PEN SC ×3 (08:17→17:05)
--- NOTE | 2025-01-08 09:09 | PDOC.CMIN ---
Date of service: 01/08/25 Time of Service: 09:09 Care Management Initial Assmt Initial Assessment Reason for Hospitalization: altered mental status, r/o stroke Functional Status/Living Situation Patient Presentation: Mukul was brought to the ED yesterday morning when his found him with altered mental status. He was found sitting on the toilet with his pants fully up, he was not speaking normally and was moving very slowly. He was admitted for stroke work up and will have MRI and echocardiogram on Thursday. Mukul was sitting up in the bedside chair, visiting with his , Patricia, when CM met with them today. Both were very pleasant. Mukul was very sleepy, and was drifting in and out during the conversation. He did state that he was feeling a little bit better. It is unclear at this point if Mukul will need STR. He and his are open to referrals being sent to local SNF's, but they would both prefer to see enough improvement for him to go home. Tomorrow Mukul is scheduled for both MRI and echocardiogram. Town of Residence: [place] Resides with: Spouse (Akanksha) Significant Other/Family: Local (Together Mukul and Patricia have 8 children and many grandchildren and great grandchildren, most are local.) Natural Supports: family Employment Status: Retired Instrumental Activities of Daily Living (ADLs): Requires support Physical Functioning/Mobility Assistive Device: has just started to use a walker Advance Directives Advance Directives: Do you have an Advance Directive: Y 01/07/25, 15:34 AD On File at [facility]: Y 01/07/25, 15:34 Date Asked 01/07/25 01/07/25, 09:56 AD Date Reviewed 01/07/25 01/07/25, 15:34 COLST On File at [facility] COLST Date Scanned Code Status Resuscitation Status Full Code Insurance Coverage/Financial Issues Insurance: Medicare Part A & B /[facility]? Care Team Visit Care Team Role Provider Type Valery Cash Primary Care Provider NURSE PRACTITIONER Sejal Juan Other Providers REG OCCUPATIONAL THERAPIST Verona Ng RDN, [facility] Other Providers BURRING MACHINE OPERATOR Sheila Taylor Other Providers OTHER Basim Boyer RDN Other Providers BURRING MACHINE OPERATOR Renetta Mejias MD Emergency Provider [facility] STAFF PHYSICIAN Chan Lara MD Admit Provider MD [facility] STAFF PHYSICIAN Attending Provider Discharge Potential Discharge Needs: Imaging/labs (MRI and echocardiogram), PT Evaluation and PCP F/U Appt Anticipated Barriers to Discharge: None Identified Patient/Family Education Needs: Review discharge instructions, discuss Ask Me Three Transportation: Private vehicle Plan: Mukul will either return home with full HH services of RN, PT,OT and [facility] or transfer to SNF. CM will send referrals tomorrow morning, as today is Thursday. Regardless, Mukul will f/u with his PCP and continue per his plan of care. Transportation will depend on progress. CM will continue to follow and update the plan as needed. Social Determinants of Health Screening Will the Patient Participate in the Screening?: Declined to provide Do you worry about having a steady place to live?: choose not to answer PFSH All Active Problems (Updated 01/07/25 @ 13:10 by Renetta Mejias MD) Tachycardia (Acute) Acute alteration in mental status (Acute) Social History Smoking/Tobacco Use Status: Unknown Smoking risk assessment performed?: Yes Alcohol Intake: current Substance use type: does not use Housing: house Anticipated HH Services Anticipated HH Services at Discharge [facility] Needed, [facility], OT, PT and RN Following Provider: Shreya.
[2025-01-08 11:37] VITALS: BP 110/72; PULSE 106; RESP 17; TEMP 37.1; O2SAT 93
--- NOTE | 2025-01-08 12:04 | PT.INIE ---
Date of service: 01/08/25 Time of Service: 10:55 PT Notes Visit Reasons: rule out stroke Inpatient Physical Therapy Evaluation Certification Period:? From _01/08/25 ?? Through __01/11/25 I certify the need for these services as being medically necessary and skilled as furnished under this plan of treatment while under my care. Please sign and return within 14 days if you agree with the plan of care listed below.? Thank you for this referral! ? Referring Physician? Date Referring Doctor:? Chan Lara MD PT Orders: PT CONSULT for safety Precautions: mental status changes Patient Profile/Admitting Diagnosis:? The patient is an 84 yo male adm on January 07 with acute change in mental status, found to be tachycardic, with concern for CVA. Last known well around 0300, symptoms noted at 0715 when patient was found on the toilet fully clothed. Patient has HTN and DM with recent start of empagliflozin. Patient is not able to follow questions and information is taken from the medical record and patient's . He has not had a stroke before. He appears comfortable. 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 CXR suggestive of CHF. Teleneurology was consulted and recommended no intervention, MRI when able (planning Thursday). 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 Stays on one level with several steps to enter. Has a walker he uses outside the home for longer distances. normally supervises in/out of the the shower, able to shower by himself, she assists with dressing because he has a hard time bending over. She normally drives. reports he has been sleeping in a reclining lift chair over the last month. Has been having more difficulty getting up from a chair. Could not get comfortable in bed. Reports he has been up watching tv in the middle of the night over the last month secondary to difficulty sleeping. Subjective: Reports he used to work for the [employer] Objective: Mental Status: Patient is grossly oriented. Sleeping upon arrival and easily falling asleep while still lying in bed. reports he is more alert today and talking more today than yesterday Pain: No c/o pain Vital Signs: supine: 122/72 94% 80 BPM sittin/75 106 bpm 95% after ambulation: 115/77 95% 108 ROM/Strength: Upper extremities: strength grossly intact. Decreased right shoulder flexion compared to right. patient and spouse report he does not normally have right shoulder issues Lower extremities: able to perform active SLR symmetrically bilaterally Sensation: grossly intact Soft tissue/edema: scratches on left leg Bed Mobility: Supine to sit min assist x 1 with cuing, encouragement, falling asleep several times during performance Transfers: Sit to/from stand cg/min assist with cuing, walker stabilization 2x, assist for hand placement Gait: Ambulated 30 feet with riolling walker with decreased step length bilaterally, trunk flexion and cuing to keep walker closer Balance: mildly unsteady at [facility] AM-PAC 6 clicks Basic Mobility Inpatient Short Form: Raw Score:??16? CMS Score:54.16% Informed Consent/Education:? Patient instructed in purpose of PT consult and plan of care and is agreeable Assessment:? Patient is a?84 yo male adm on January 07 with acute change in mental status, found to be tachycardic, with concern for CVA ? Patient presents with altered mental status, decreased strength, decreased functional mobility, decreased balance and difficulty with ambulation. The patient would benefit from skilled inpatient services to improve these impairments to maximize function and safety. Patient is assessed as:? Low 83326? complexity based on the following: History: DM Examination: see above Presentation: Stable and uncomplicated? Decision Making:? Low (0 history, 1-2 exam, stable/predictable, easy 20) Physical Therapy Goals: 3 days Able to get in/out of bed with supervision only. Able to perform sit to/from stand with supervision only. Able to walk 150 feet with rolling walker with supervision only. Able to go up and down 2-3 steps with 1 rail with contact guard assist only. Independent with home exercise program Plan of Care/Treatment Plan: 1-2x/day, 7 days/week x 1 week. Plan of care has been reviewed with the VICE PRESIDENT INVESTOR [employer]ATIONS providing the service under Physical Therapy direction. Initiate Physical Therapy intervention for strengthening, bed mobility, transfers, gait, stairs, balance training, use of assistive device. DISCHARGE RECOMMENDATIONS: Will need to see if his mental status improves. ? Short term rehab vs home with HHPT with to assist. Will need to assess equipment needs Informed consent Prior to the start and throughout the course of the examination and treatment, patient was made aware of the specifics and purpose of the physical assessment and treatment procedures. Appropriate draping procedures were utilized to protect modesty where applicable. Billing Charges: Treatment Units Time Duration Manual Therapy(95472) Hands-on techniques to modulate pain increase joint range of motion reduce or eliminate soft tissue swelling, inflammation, or restriction facilitate relaxation and improve contractile and non-contractile tissue extensibility ? ? Therapeutic Procedures (61784) Instruction in therapeutic exercises to develop strength and endurance, range of motion and flexibility. HEP instruction and review: Provided skilled instruction in proper exercise performance: Provided skilled manual cues to facilitate proper muscle recruitment and/or movement pattern Neurological Re-Education(45498) To improve balance, coordination, kinesthetic and proprioceptive sensations. ? ? Ultrasound(25868) To promote healing. ? ? Gait Training(21493) ? ? Therapeutic Activity(54588) Instruction in dynamic activities with one on one patient contact by the provider to improve functional performance as follows: 1 ? 17 ? Self Care Training(41847) ? ? E-Stim (Attended)(17716) ? ? Low IE(21859) 1 32 Mod IE(39307) ? ? High IE(47140) ? ? Time Coded Treatment Time ? 17 Total Treatment Time ? 49
--- NOTE | 2025-01-08 16:02 | W.PM.PROGNOT ---
Date of Service Date of service: 01/08/25 Time of Service: 09:00 Assessment and Plan Assessment and plan (1) Acute alteration in mental status: Status: Acute Assessment and plan: Stroke workup, will have MRI and echo on Thursday A1C 7.8, lipid panel moderately elevated, TSH unremarkable. PT/OT evaluation Unlikely nonanion gap metabolic acidosis per labs, will not get ABG Hold empagliflozin. Will give sliding scale insulin, CHO diet Continue antihypertensives. (2) Tachycardia: Status: Acute Assessment and plan: HR up to 139 in the ED, now in the 100's Monitor on telemetry Subjective Subjective Interval history since last seen: Mr. Lujan is comfortable in bed. He says he feels better. Exam Narrative Exam Narrative: General: This is a well-nourished, elderly man in no acute distress HEENT: Normocephalic, atraumatic CV: RRR Resp: CTAB Abd: NTND +NBS MSK: normal tone, well perfused extremities Skin: warm and dry Neuro: Awake and alert with slow responses, some confusion. Much slower voluntary motion in left leg than in right. Objective Last Vital Signs Temp 37.1 C 01/08/25 11:37 Pulse 106 H 01/08/25 11:37 Resp 17 01/08/25 11:37 BP 110/72 01/08/25 11:37 Pulse Ox 93 01/08/25 11:37 Time Spent with Patient Time Spent with Patient: 25-34 minutes Time was spent: preparing to see the patient(eg.review tests), obtaining and/or reviewing separately otained hiistory, ordering medications,tests, procedures, referring, communicating with other health foster care social worker, indepentently interpreting results, counseling the patient and care coordination
[2025-01-08 17:54] VITALS: BP 123/82; PULSE 86; RESP 18; TEMP 36.8; O2SAT 95
[2025-01-08] MEDS: Furosemide 20 MG TAB PO (17:55)
[2025-01-08 20:48] VITALS: BP 138/86; PULSE 81; RESP 20; TEMP 36.8; O2SAT 94
[2025-01-08] MEDS: Tamsulosin 0.4 MG CAPCR PO (21:20)
[2025-01-09 00:02] VITALS: BP 135/81; PULSE 124; RESP 20; TEMP 36.9; O2SAT 94
[2025-01-09 03:46] VITALS: BP 125/82; PULSE 117; RESP 20; TEMP 36.3; O2SAT 95
--- NOTE | 2025-01-09 08:00 | DI.MRI_ITS ---
Exam(s) MR BRAIN WO EXAM: MR BRAIN WO CLINICAL HISTORY: stroke workup TECHNIQUE: Multiplanar multisequence MRI of the brain was performed. COMPARISON: CT CT BRAIN NECK CTA from 01/07/2025 FINDINGS: The examination is limited due to patient motion artifact. VENTRICLES AND EXTRA AXIAL SPACES: Normal in size and morphology for the patient's age. MIDLINE SHIFT: None. CEREBRAL PARENCHYMA: There is a small to moderate area of restricted diffusion involving the anterior right parietal lobe consistent with an infarct. There are areas of hyperintensity in the white matter on the FLAIR and T2 weighted images consistent with chronic microvascular ischemic disease. HEMORRHAGE: None. BRAINSTEM/CEREBELLUM: Normal. CALVARIUM: Normal. VISUALIZED PARANASAL SINUSES/MASTOIDS:Clear. [place]: Normal flow void. PITUITARY GLAND: Unremarkable. OTHER FINDINGS: None. IMPRESSION: Findings of restricted diffusion in the anterior aspect of the right parietal lobe consistent with an acute infarct. DATA REPOSITORY:
[2025-01-09] MEDS: Losartan 50 MG TAB PO (09:01)
[2025-01-09] MEDS: Furosemide 20 MG TAB PO (09:02)
[2025-01-09] MEDS: Aspirin 81 MG CHEW PO (09:02)
[2025-01-09] MEDS: Normal Saline Flush 10 ML SYR IVP ×2 (09:02→21:05)
[2025-01-09] MEDS: Metoprolol CR 50 MG TABCR 100 MG PO (09:04)
[2025-01-09] MEDS: Insulin Aspart 300 UNITS/3 ML PEN SC ×3 (09:08→17:43)
[2025-01-09 11:47] VITALS: BP 113/71; PULSE 98; RESP 16; TEMP 36.4; O2SAT 95
--- NOTE | 2025-01-09 12:11 | PT.INTREAT ---
PT Notes Visit Reasons: rule out stroke Inpatient Physical Therapy Treatment Note [facility] Date: 01/09/2025 PRECAUTIONS:IV Access, flat affect needs cues for safe hand placement SUBJECTIVE: Pt reports he feels okay. He was able to recall that he had walked this path in the morning with the Nurse. OBJECTIVE: Pt presented in chair with visiting telemetry in place? PAIN: denies VITALS: monitored via telemetry throughout Therapeutic Activities ([id number][]): Direct one-on-one instruction in dynamic activities to improve functional performance. ?? ?AM /pm session:? ? ? BED MOBILITY/TRANSFERS? Sit-stand: CGA and verbal and tactile cues for hand placement to reach back x 5 trials; In pm 1 trial needed min A from 17 height.? Stand-sit: CGA and verbal and tactile cues for hand placement to reach back ? commode-Chair:CGA with FWW? Chair-commode: CGA with FWW Provided skilled cues and instruction on performance and technique throughout. ? am and pm GAIT? Assistive Device:FWW? Weight bearing:full Assist: CGA and cues for direction/destination ? Distance:? 50 and 200 feet in am? ; 75 and 200feet in pm? Deviation: reduced step length B; ? PM Session: STAIRS:? ? ? - 3 4 steps? and 2 6 steps with rails CGA step to pattern ? ASSESSMENT:?Pt had Head/ brain MRI this am which revealed Right Parietal infarct. Pt tolerated sessions well demonstrating improved functional activity tolerance as noted by ability to perform amb with FWW CGA and stairs with 1 sit rest. Pt demonstrating improvement with motor coordination and sequencing for sit to stand. He intermittently requires cues to initiate tasks. Pt requires cues for hand placement with sit to from stand. PLAN: 1-2x/day, 7 days/week x 1 week. Plan of care has been reviewed with the VENDING ENTERPRISES SUPERVISOR providing the service under Physical Therapy direction. Initiate Physical Therapy intervention for strengthening, bed mobility, transfers, gait, stairs, balance training, use of assistive device. TREATMENT CODE/TIME: am session:[id number]/ [id number], [id number] pm session: [id number]/ [id number] DISCHARGE RECOMMENDATION: Home with HHPT
--- NOTE | 2025-01-09 13:12 | OTIE_ITS ---
Occupational Therapy Notes Inpatient Occupational Therapy Evaluation Date: 01/09/25 Referring Doctor:Chan Lara OT Orders: Non-Urgent D/C Non PT Dependent Precautions: Fall, standard, DNR/DNI PATIENT PROFILE/ADMITTING DIAGNOSIS: Pt is a 84 year old male admitted to Med Surg from the ED for tachycardia and acute alteration in mental status. Past Medical History: All Active Problems (Updated 01/07/25 @ 13:10 by Renetta Mejias MD) Tachycardia (Acute) Acute alteration in mental status (Acute) Social History/Home Situation: Pt lives in a private home with his . He is fairly (I) at his baseline level of function. He did drive (I), he was (I) with bathing, dressing, toileting and eating. He had a FWW that he utilized at times but not at all times. Functionally his notes that he slept every night in the recliner. He states that this is easier to get in and out. Pt wears compression stockings at home. Equipment owned/DME: FWW, cane SUBJECTIVE: Pt was sitting in chair when OT arrived. His is present in the room and able to add to evaluation. She states that they are waiting on some testing at this time. OBJECTIVE: General Observation: Pleasant, agreeable to OT consult Mental Status: A&Ox3 Pain: No c/o pain ROM: RUE AROM WFL L UE AROM WFL STRENGTH: RUE Shoulder flexion 3/5, bicep 3+/5, Tricep 3+/5, hyperion essbase developer is weak but symmetrical LUE Shoulder flexion 3/5, bicep 3+/5, Tricep 3+/5, hyperion essbase developer is weak but symmetrical BATHING NT, pts reports that he has a walk in shower, there is a seat but he does not use it at this time. She notes that he enjoys standing and will most likely return to this at home. DRESSING seated in chair Dressing UE (I) with increased performance time throughout Dressing LE pts reports that he is max (A) with compression stockings GROOMING (I) TOILETING Pt states that he requires (A) with nursing to get to and from toilet. He states that otherwise he is (I) EATING seated in chair (I) with appropriate use and mechanics BALANCE: Static sitting Normal Dynamic Sitting Normal SPECIAL TESTS: Daily Activity Limitations Standardized Measure [facility] AM -PAC ?6 clicks? Daily Activity Inpatient Short Form: Raw score: 20 Standardized score: 42.03 CMS score: 38.32% INFORMED CONSENT/EDUCATION: Pt instructed in purpose of OT Consult and plan of care. ASSESSMENT: Patient is a 84-year-old female referred to occupational therapy services with diagnosis of Tachycardia, acute alteration in mental status. Patient presents with clinical signs and symptoms consistent with dx, as demonstrated by the following impairment level findings/functional limitations: Impairments in ADL/IADL and leisure activities, decreased functional activity tolerance, decreased functional mobility required for ADL performance, decreased executive function and planning, decreased task initiation. AMPAC score 20 Patient is assessed as a Moderate 91315 complexity based on the following: History: see above Examination: see functional limitations as noted above Presentation: evolving Decision Making: AMPAC score 20 GOALS Goals x1 week 1. Transfers (I) 2. Dressing seated in chair (I) UE and min (A) LE 3. Bathing standing at sink (I) 4. Toileting on toilet (I) 5. Eating seated (I) PLAN OF CARE/TREATMENT PLAN: 1x/day, 3-5 days/ week x 1week Initiate Occupational Therapy Services for bathing, dressing, grooming, toileting, eating, transfer training. DISCHARGE RECOMMENDATIONS OT recommends that pt return home when medically cleared per MD with HH OT for assessment of ADLs and (A) for him in the home setting. OT also recommends a raised toilet seat to go over toilet with handles to increase pts (I) and safety with his toileting routines. TREATMENT TIME/MINUTES/CODES 69352, 22830, 20 minutes [facility] [place], [place]
[2025-01-09 16:18] VITALS: BP 108/71; PULSE 82; RESP 16; TEMP 36.4; O2SAT 92
--- NOTE | 2025-01-09 16:47 | PDOC.CMPRO ---
Date of service: 01/09/25 Time of Service: 16:47 Care Management Progress Note Progress Note Text Progress Note Text: Mukul has been up in the bedside chair most of the day today. Doug has been here most of the day. Both are very pleasant. He is more alert and is ambulating better. He and his have decided that he will go home tomorrow with HH services. [facility] referral has been sent. Both Mukul and his are anxious to learn the results of testing done today. CM notified the provider of this. When Mukul discharges tomorrow, his son will meet him and his mom at the home to help him get into the house. Discharge Potential Discharge Needs: PCP F/U Appt Anticipated Barriers to Discharge: None Identified Patient/Family Education Needs: Review discharge instructions, discuss Ask Me Three Transportation: Private vehicle Plan: Anticipate that Mukul will discharge home tomorrow with new services of HH RN, PT/OT and ENGINEER FIRST ASSISTANT. He amia f/u with his PCP and continue per his plan of care. He will transport home with Doug, and as above, their son will meet them at the house. CM will continue to follow. Social Determinants of Health Screening Will the Patient Participate in the Screening?: Declined to provide Do you worry about having a steady place to live?: choose not to answer Anticipated HH Services Anticipated HH Services at Discharge [facility] Needed, ENGINEER FIRST ASSISTANT, OT, PT and RN Anticipated Date of Discharge: 01/10/25. Following Provider: Shreya.
--- NOTE | 2025-01-09 17:44 | W.PM.PROGNOT ---
Date of Service Date of service: 01/09/25 Time of Service: 17:44 Assessment and Plan Assessment and plan (1) Acute alteration in mental status: Status: Acute Assessment and plan: Stroke workup, will have MRI and echo on Thursday A1C 7.8, lipid panel moderately elevated, TSH unremarkable. PT/OT evaluation Unlikely nonanion gap metabolic acidosis per labs, will not get ABG Hold empagliflozin. Will give sliding scale insulin, CHO diet Continue antihypertensives. MRI IMPRESSION: Findings of restricted diffusion in the anterior aspect of the right parietal lobe consistent with an acute infarct. Will d/w Neuro in am. Will place on eliquis 5mg po bid (2) Tachycardia: Status: Acute Assessment and plan: HR up to 139 in the ED, now in the 100's Monitor on telemetry Subjective Subjective Interval history since last seen: pt still with some confusion but improved per spouse (at bedside) Exam Narrative Exam Narrative: General: This is a well-nourished, elderly man in no acute distress HEENT: Normocephalic, atraumatic CV: RRR Resp: CTAB Abd: NTND +NBS MSK: normal tone, well perfused extremities Skin: warm and dry Neuro: Awake and alert with slow responses, some confusion. Much slower voluntary motion in left leg than in right. Objective Last Vital Signs Temp 36.4 C L 01/09/25 16:18 Pulse 82 01/09/25 16:18 Resp 16 01/09/25 16:18 BP 108/71 01/09/25 16:18 Pulse Ox 92 01/09/25 16:18 Time Spent with Patient Time Spent with Patient: 25-34 minutes Time was spent: preparing to see the patient(eg.review tests), obtaining and/or reviewing separately otained hiistory, ordering medications,tests, procedures, referring, communicating with other health career development engineer, indepentently interpreting results, counseling the patient and care coordination
[2025-01-09 19:59] VITALS: BP 124/70; PULSE 101; RESP 20; TEMP 36.6; O2SAT 94
[2025-01-09] MEDS: Tamsulosin 0.4 MG CAPCR PO (21:05)
[2025-01-09] MEDS: Apixaban 5 MG TAB PO (21:05)
[2025-01-09] MEDS: Atorvastatin 40 MG TAB PO (21:05)
[2025-01-09 23:57] VITALS: BP 134/88; PULSE 117; RESP 18; TEMP 36.6; O2SAT 94
[2025-01-10 05:00] VITALS: BP 123/89; PULSE 124; RESP 17; TEMP 36.2; O2SAT 96
[2025-01-10 07:29] VITALS: BP 99/78; PULSE 130; RESP 14; TEMP 35.5; O2SAT 95
[2025-01-10 07:30] VITALS: PULSE 130
[2025-01-10] MEDS: Metoprolol CR 50 MG TABCR 100 MG PO (07:46)
[2025-01-10] MEDS: Losartan 50 MG TAB PO (07:46)
[2025-01-10] MEDS: Aspirin 81 MG CHEW PO (07:46)
[2025-01-10] MEDS: Apixaban 5 MG TAB PO (07:46)
[2025-01-10] MEDS: Normal Saline Flush 10 ML SYR IVP (07:47)
[2025-01-10] MEDS: Insulin Aspart 300 UNITS/3 ML PEN SC (08:03)
--- NOTE | 2025-01-10 08:25 | DSE_ITS ---
Date of service: 01/10/25 Time of Service: 08:25 DS: Diagnosis Discharge Diagnosis (1) Acute alteration in mental status: Status: Acute (2) Tachycardia: Status: Acute Discharge Plan Disposition Patient Disposition: Home W/Home Health Services Condition: Improving Discharge Details Reason For Visit: rule out stroke Admit Date/Time: 01/07/25 13:08 Admit Provider: Chan Lara Attending Provider: Chan Lara Primary Care Provider: aVlery Cash Hospital Course Hospital Course: Pt was admitted for mental status changes. MRI is positive for acute cva. Will restart pt on statin/and continue plavix and asa for three weeks. After three weeks, a decision should be made by PCP on weather to keep both, or change to plavix or aspirin. History of Present Illness Chief Complaint: acute encephalopathy Narrative: Mukul Lujan is an 84 year old man presenting January 07 with acute change in mental status, found to be tachycardic, with concern for CVA. Last known well around 0300, symptoms noted at 0715 when patient was found on the toilet fully clothed. Patient has HTN and DM with recent start of empagliflozin. Patient is not able to follow questions and information is taken from the medical record and patient's . He has not had a stroke before. He appears comfortable. 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 CXR suggestive of CHF. Tele neurology was consulted and recommended no intervention, MRI when able. PMH includes HTN on losartan, metoprolol, furosemide; DM on glipizide, empagliflozin; BPH on tamsulosin Assessment and plan (1) Acute alteration in mental status: Status: Acute Assessment and plan: Stroke workup, will have MRI and echo on Thursday A1C 7.8, lipid panel moderately elevated, TSH unremarkable. PT/OT evaluation Unlikely nonanion gap metabolic acidosis per labs, will not get ABG Hold empagliflozin. Will give sliding scale insulin, CHO diet Continue antihypertensives. (2) Tachycardia: Status: Acute Assessment and plan: HR up to 139 in the ED, now in the 100's Monitor on telemetry MR BRAIN WO EXAM: MR BRAIN WO CLINICAL HISTORY: stroke workup TECHNIQUE: Multiplanar multisequence MRI of the brain was performed. COMPARISON: CT CT BRAIN NECK CTA from 01/07/2025 FINDINGS: The examination is limited due to patient motion artifact. VENTRICLES AND EXTRA AXIAL SPACES: Normal in size and morphology for the patient's age. MIDLINE SHIFT: None. CEREBRAL PARENCHYMA: There is a small to moderate area of restricted diffusion involving the anterior right parietal lobe consistent with an infarct. There are areas of hyperintensity in the white matter on the FLAIR and T2 weighted images consistent with chronic microvascular ischemic disease. HEMORRHAGE: None. BRAINSTEM/CEREBELLUM: Normal. CALVARIUM: Normal. VISUALIZED PARANASAL SINUSES/MASTOIDS:Clear. [place]: Normal flow void. PITUITARY GLAND: Unremarkable. OTHER FINDINGS: None. IMPRESSION: Findings of restricted diffusion in the anterior aspect of the right parietal lobe consistent with an acute infarct Home Meds and New Rx's Prescriptions: New aspirin 81 mg Tablet,Chewable 81 mg PO DAILY 30 Days Qty: 30 0RF Eliquis 5 mg Tablet 5 mg PO BID 30 Days Qty: 60 0RF atorvastatin 40 mg Tablet 40 mg PO QPM 30 Days Qty: 30 0RF Continued losartan 50 mg tablet 50 mg PO DAILY glipizide 5 mg tablet 5 mg PO DAILY Jardiance 10 mg tablet 20 mg PO DAILY metoprolol succinate 50 mg tablet extended release 24 hr 100 mg PO DAILY furosemide [Lasix] 20 mg tablet 20 mg PO DAILY PRN tamsulosin [Flomax] 0.4 mg capsule 0.4 mg PO QHS cyclosporine [Restasis] 0.05 % dropperette 1 drp ophthalmic (eye) Q12H Discharge Instructions Stand Alone Forms: Nursing Discharge Form Referrals: Valery Cash [Primary Care Provider, Medicine] - 01/23/25 1:40 pm Activity:: Activity as Tolerated Equipment/Supplies:: No Equipment Needed Diet:: As Tolerated Discharge Orders Discharge Orders: Discharge Order (Routine); Ordered 01/10/25 Ordered By: Timothy Bird DS: Summary Time Spent with Patient providing and/or coordinating discharge services: Greater than 30 minutes Status at Discharge Functional status at discharge: uses cane/walker Overall status at discharge: patient is progressing back to baseline Mental Status: mental status grossly normal Speech and Movement: speech and movement normal Mood: congruent mood Affect: normal affect Exam Narrative Exam Narrative: General: This is a well-nourished, elderly man in no acute distress HEENT: Normocephalic, atraumatic CV: RRR Resp: CTAB Abd: NTND +NBS MSK: normal tone, well perfused extremities Skin: warm and dry Neuro: Awake and alert with slow responses, some confusion. Much slower voluntary motion in left leg than in right. improving mentation Psych Mental Status: mental status grossly normal Speech and Movement: speech and movement normal Mood: congruent mood Affect: normal affect DS: Data Vitals/I&O Vitals and I&O: Vital Signs Temperature 35.5 C L 01/10/25 07:29 Temperature Source Tympanic 01/10/25 07:29 Pulse 130 H 01/10/25 07:29 Pulse Rhythm Regular 01/07/25 15:51 Pulse 109 H 01/07/25 15:15 Respiratory Rate 14 01/10/25 07:29 Respiratory Effort Normal, Non-Labored 01/07/25 15:51 Respiratory Depth Normal 01/07/25 15:51 Respiratory Pattern Normal 01/07/25 15:51 Blood Pressure 99/78 L 01/10/25 07:29 Blood Pressure Mean 85 01/10/25 07:29 Pulse Oximetry 95 01/10/25 07:29 Oxygen Delivery Method Room Air 01/10/25 07:29 Oxygen Flow Rate 0 01/10/25 07:29 Pain Level 0 01/10/25 07:29 Comment rn notified 01/08/25 11:37 Intake & Output 01/09/25 01/09/25 01/10/25 11:59 23:59 11:59 Output Total 200 / 200 275 / 275 Balance -200 / -200 -275 / -275 Output: Urine 200 / 200 275 / 275 Other: Urine Color Pale Yellow Pale Yellow Urine Appearance Clear Clear Clear Urine Odor Normal Comment voided in toilet unable to measure Stool Size Small Large Stool Characteristics Soft Soft Liquid Liquid Data Completed and Pending Labs on day of discharge: Preliminary micro results at discharge 01/07/25 10:45 Blood Blood Culture - Preliminary NO GROWTH 48 HOURS 01/07/25 10:25 Blood Blood Culture - Preliminary NO GROWTH 48 HOURS PFSH All Active Problems (Updated 01/07/25 @ 13:10 by Renetta Mejias MD) Tachycardia (Acute) Acute alteration in mental status (Acute) Social History Smoking/Tobacco Use Status: Unknown Smoking risk assessment performed?: Yes Alcohol Intake: current Substance use type: does not use Housing: house Time Spent with Patient Time Spent with Patient: 45-69 minutes Time was spent: preparing to see the patient(eg.review tests), obtaining and/or reviewing separately otained hiistory, ordering medications,tests, procedures, referring, communicating with other health child care development specialist, indepentently int erpreting results, counseling the patient and care coordination
--- NOTE | 2025-01-10 08:27 | PDOC.HHF2F_ITS ---
Home Health Referral Home Health Orders Clinical synopsis of why skilled professionals are needed: CVA Medical diagnosis necessitation home health referral: CVA Registered Nurse: Check all that apply Assess for exacerbation of medical condition, instruct patient/caregivers on signs and symptoms to report for early detection: Ordered Physical Therapist: Check all that apply Increase strength & endurance for safe mobility at home: Ordered To design/establish home maintenance program: Ordered Fall reduction therapy program for patient with history of frequent falls: Ordered Home safety evaluation and teaching/gait training including stair management (if applicable): Ordered Occupational Therapist: Evaluate and treat for patient unable to perform ADL/IADL/self-care: Ordered Upper extremity strengthening, range and motion: Ordered Speech Therapist: Check all that apply Cognition/memory: Ordered Speech/communication disorders: Ordered Admitted Attorneys: Assist with community resources: Ordered Assist with termite treater care planning: Ordered Home Bound Status Requires the aid of supportive device (check all that apply): Walker Assistance of another person (Describe assistance and medical necessity): CVA rehabilitation Encounter Date and Reason: I certify that a FTF encounter for this patient was performed on January 10, 2025 and that such encounter was related to the primary reason the patient requires home health services. The encounter was conducted in the following manner: * By me as the certifying physician, PIECE MARKER SMALL ARMS, PA or * By an inpatient physician, PIECE MARKER SMALL ARMS or PA during an inpatient stay who communicated findings to me, Certification And Authentication I certify that I composed the above information based on my clinical judgment relating to this patient's medical condition and, if applicable, clinical findings communicated to me by the NPP or inpatient physician who performed the FTF encounter. Name of Provider that will be monitoring home health services: Valery Chaves
--- NOTE | 2025-01-10 08:28 | CMDISCH_ITS ---
Date of service: 01/10/25 Time of Service: 08:28 LACE Index Scoring Tool Questions: Length of Stay (in days): 3 Was the patient admitted via the E.D.?: Yes E.D. Visits: 1 Answers: Total Score: 7 Risk of Readmission: Low Risk Care Management Discharge Plan Reason for Hospitalization: Rule out stroke Discharge Plan: Mukul will discharge home today with new services of HH RN, PT/OT and ASSISTANT PROFESSOR OF ANTHROPOLOGY. He will f/u with his PCP and continue per his plan of care. He will transport home with Doug, and their son will meet them at the house. Patient/Family Education Needs: Review discharge instructions, activity, limitations, and plan of care. Discuss Ask Me Three. Services Needed at Discharge: Home Health Care Services
--- NOTE | 2025-01-10 10:33 | W.DIABETESNO ---
Date of service: 01/09/25 Time of Service: 13:00 Diabetes Note Reason for Visit: consult - diabetes ed NOTE: Met with Chang and his who was visiting (yesterday 01/09). Takes glipizde and jardiance at home. A1C 01/07 7.8% makes most meals. From brief interview, Chang's diet at baseline is low in fiber and high in added sugar, refined starchs. REviewed importance of 3 aspects of diet Chang should work on - meeting daily protein goal, trying to hit 25 g of fiber or more most days, and limiting added sugar to 20g or less most days. Also suggested protein come from plants as well as lean animals to help prevent too many kcals if eating all protein from animal sources. suggested we review and work together in outpatient setting for weight loss and glucose mgt. They took my card to contact if desiring outpatient services Time Spent in Nutritional Counseling and Treatment: 10 min
== END 2025-01-10 10:14 | disposition home health service (06) ==
LOC: ER 15:34 → MS 15:42
PROVIDERS: Admitting Provider Family Medicine; Emergency Provider Emergency Medicine; PCP Nurse Practitioner Family; Responsible Provider Hospitalist; Visit Provider Family Medicine
DX: I63.9 Cerebral infarction, unspecified (principal); R41.82 Altered mental status, unspecified; R00.0 Tachycardia, unspecified; E11.9 Type 2 diabetes mellitus without complications; Z79.84 Long term (current) use of oral hypoglycemic drugs; I10 Essential (primary) hypertension; Z86.73 Personal history of transient ischemic attack (TIA), and cerebral infarction without residual deficits; Z79.899 Other long term (current) drug therapy; N40.0 Benign prostatic hyperplasia without lower urinary tract symptoms
CPT/HCPCS: 00123; 36415; 70496; 70498; 80053; 80061; 87040; 93005; 96360; 97161; 97166; 97530; 97535; 99285; 70551; 71045; 81003; 81015; 83036; 83605; 83735; 84443; 84484; 85025; 85610; 93010; 93306; 99222; 99232; 99239; G0378; J1815; J3490

== ENCOUNTER 2025-02-15 11:21 | Outpatient (CLI) | payer MEDICARE, BC, SELFPAY | END 2025-02-15 11:22 | disposition home or self-care (01) | PROVIDERS: PCP Nurse Practitioner Family; Visit Provider Nurse Practitioner Family | DX: I48.91 Unspecified atrial fibrillation (principal) | CPT/HCPCS: 93246 ==

== ENCOUNTER 2025-03-09 06:49 | Outpatient (CLI) | payer MEDICARE, BC, SELFPAY ==
--- NOTE | 2025-03-09 09:42 | W.CARDEVENT ---
Date of service: 03/09/25 Time of Service: 09:42 Cardiac Event Recorder Referring Provider:: Valery Chaves Indications:: Atrial fibrillation Cardiac Event Note: This is a cardiac event monitor. Patient was monitored for 13 days and 23 hours predominant rhythm was sinus. Average heart rate overall was 93. Minimum was 47, maximum 150 . There were rare ventricular ectopic beats. A total of 5 episodes of brief ventricular tachycardia were recorded. Most of these were 4-5 beats in length. Longest was 16 beats. All were asymptomatic There were occasional atrial premature beats. Possibly there was atrial flutter (interpreted by the computer as sinus tachycardia) rate 150. Mobitz 1 second-degree AV block was noted during sleep There were no symptoms reported
== END 2025-03-09 06:50 | disposition home or self-care (01) ==
LOC: CARDOPNVT 06:49
PROVIDERS: PCP Nurse Practitioner Family; Visit Provider Internal Medicine Cardiovascular Disease
DX: I44.1 Atrioventricular block, second degree (principal); I48.91 Unspecified atrial fibrillation; I48.92 Unspecified atrial flutter; I49.1 Atrial premature depolarization
CPT/HCPCS: 93248

== ENCOUNTER 2025-03-15 19:54 | Inpatient (IN) | payer MEDICARE, BC, SELFPAY ==
[2025-03-15] VITALS (35 sets, daily range): BP systolic 130–216; BP diastolic 76–132; PULSE 92–132; RESP 12–33; TEMP 36.4; O2SAT 93–96
--- NOTE | 2025-03-15 19:45 | DI.CT_ITS ---
Exam(s) CT BRAIN NECK CTA EXAM: CT BRAIN NECK CTA CLINICAL HISTORY: ?cva, facial droop. TECHNIQUE: Imaging Protocol: Axial CT angiography was performed with multi- slice acquisition and multi-planar and/or 3D reconstructions. CONTRAST MATERIAL: Intravenous: Omnipaque 350 contrast volume:75 mL COMPARISON: CT CT BRAIN NECK CTA from 01/07/2025 MR MR BRAIN WO from 01/09/2025 FINDINGS: CT Head W/O and W: Ventricles and Extra axial spaces: Normal in size and morphology for the patient's age. Hemorrhage: None. Cerebral parenchyma: There is an old right parietal infarct. There are areas of decreased attenuation in the white matter consistent with chronic microvascular ischemic disease. No evidence of an acute territorial infarct are seen at this time. There is no acute mass effect. Midline shift: None. Brainstem/Cerebellum: Normal. Calvarium: Normal. Visualized Paranasal sinuses/Mastoids: Clear. Soft Tissues: Unremarkable. Enhancement: Unremarkable. CTA Neck W: Common Carotid: Right: No dissection, occlusion or significant stenosis. Left: No dissection, occlusion or significant stenosis. External Carotid: Right: No occlusion or significant stenosis. Mild atherosclerotic calcification is present with less than 50 percent stenosis. Left: No occlusion or significant stenosis. Internal Carotid: Right: No dissection, occlusion or significant stenosis. There is atherosclerotic calcifications seen in the proximal internal carotid artery with less than 50 percent stenosis. Left: No dissection, occlusion or significant stenosis. Atherosclerotic calcification is seen in the proximal internal carotid artery with less than 50 percent stenosis. Vertebral Artery: Right: No dissection, occlusion or significant stenosis. Left: No dissection, occlusion or significant stenosis. Atherosclerotic calcification is seen at the origin of the left vertebral artery with less than 50 percent stenosis. Lung Apices: Normal. Bones: Within normal limits for the patient's age. Soft Tissues: Normal. Thyroid gland: Unremarkable. CTA Brain W: Internal Carotid Arteries: Atherosclerotic calcification is seen in the cavernous portion of the right internal carotid artery with less than 50 percent stenosis. There is atherosclerotic calcification seen in the cavernous portion of the left internal carotid artery with less than 50 percent stenosis. Anterior Cerebral Arteries: Right: No aneurysm, occlusion or significant stenosis. Left: No aneurysm, occlusion or significant stenosis. Middle Cerebral Arteries: Right: No aneurysm, occlusion or significant stenosis. Left: No aneurysm, occlusion or significant stenosis. Posterior Cerebral Arteries: Right: No aneurysm, occlusion or significant stenosis. Left: No aneurysm, occlusion or significant stenosis. Vertebral Arteries: Right: No aneurysm, occlusion or significant stenosis. Atherosclerotic calcification is seen in the distal right vertebral artery with less than 50 percent stenosis. Left: No aneurysm, occlusion or significant stenosis. Atherosclerotic calcification is seen with less than 50 percent stenosis. Basilar Artery: No aneurysm, occlusion or significant stenosis. IMPRESSION: 1. No large vessel occlusion or significant stenosis on the CT angiography of the head. 2. No acute intracranial process. 3. No occlusion or significant stenosis on the CT angiography of the neck. 4. The preliminary [facility] report was reviewed. RADIATION DOSE DELIVERED: 2,237.57mGy.cm Total DLP DATA REPOSITORY: All CT scans at this facility are submitted to the National Radiology Data Registry (NRDR) Dose Index Registry (DIR) with the [employer] (ACR). RADIATION OPTIMIZATION: All CT scans at this facility use at least one of these dose optimization techniques: automated exposure control; mA and/or kV adjustment per patient size (includes targeted exams where dose is matched to clinical indication); or iterative reconstruction.
--- NOTE | 2025-03-15 19:45 | RT.EKG_ITS ---
APPROVED REPORT Exam: Resting ECG Reason for Exam: cva Patient Location: E HR:101 bpm ECG Measurements Heart Rate 101 AXIS SD 134 P 75 QRSd 126 QRS 69 QT 364 T 33 QTc 471 Conclusion Sinus tachycardia...rate> 99 Right bundle branch block...QRSd>120, terminal axis(90,270)
[2025-03-15] MEDS: Normal Saline - Diluent 50 ML VIAL IJ (19:54)
[2025-03-15] MEDS: Normal Saline Flush 10 ML SYR IVP (19:54)
--- NOTE | 2025-03-15 19:54 | W.ED.GENAD ---
Discharge Plan Disposition Patient Disposition: Admit to [facility] Condition: Stable Discharge Details Clinical Impression: Acute alteration in mental status Primary Care Provider: Valery Cash ED Provider: Gary Hughes Home Meds and New Rx's Prescriptions: No Action glipizide 5 mg tablet 5 mg PO DAILY Jardiance 10 mg tablet 20 mg PO DAILY metoprolol succinate 50 mg tablet extended release 24 hr 100 mg PO DAILY furosemide [Lasix] 20 mg tablet 20 mg PO DAILY PRN tamsulosin [Flomax] 0.4 mg capsule 0.4 mg PO QHS cyclosporine [Restasis] 0.05 % dropperette 1 drp ophthalmic (eye) Q12H aspirin [Adult Aspirin Regimen] 81 mg tablet,delayed release (DR/EC) 81 mg PO DAILY atorvastatin [Lipitor] 40 mg tablet 40 mg PO QPM cholecalciferol (vitamin D3) [D3-5000] 125 mcg PO DAILY Eliquis 5 mg tablet 5 mg PO BID HPI General Mode of arrival: EMS. Date/Time Provider Initiated Documentation: 03/15/25 20:00. Information obtained by: patient and EMS. History of Present Illness 85 year old M presents to the emergency department with the chief complaint of right facial droop, change in mentation, described as moderate, Patient started experiencing this hour(s) (1) and it has been constant. No relieving factors improve symptom(s), No exacerbating factors reported . Patient notes denies chest pain and shortness of breath. Patient did receive the following treatments prior to arrival, none Related Data Home Medications ?Medication ?Instructions ?Recorded ?Confirmed cyclosporine 0.05 % eye drops in a 1 drp ophthalmic (eye) Q12H 01/07/25 03/15/25 dropperette (Restasis) empagliflozin 10 mg tablet 20 mg PO DAILY 01/07/25 03/15/25 (Jardiance) furosemide 20 mg tablet (Lasix) 20 mg PO DAILY PRN 01/07/25 03/15/25 glipizide 5 mg tablet 5 mg PO DAILY 01/07/25 03/15/25 metoprolol succinate 50 mg 100 mg PO DAILY 01/07/25 03/15/25 tablet,extended release 24 hr tamsulosin 0.4 mg capsule (Flomax) 0.4 mg PO QHS 01/07/25 03/15/25 apixaban 5 mg tablet (Eliquis) 5 mg PO BID 03/15/25 03/15/25 aspirin 81 mg tablet,delayed 81 mg PO DAILY 03/15/25 03/15/25 release (Adult Aspirin Regimen) atorvastatin 40 mg tablet (Lipitor) 40 mg PO QPM 03/15/25 03/15/25 cholecalciferol (vitamin D3) 125 mcg PO DAILY 03/15/25 03/15/25 Allergies Allergy/AdvReac Type Severity Reaction Status Date / Time aspartame AdvReac Intermediate Dizziness/L Verified 01/07/25 15:28 ighthead General DIRK: 2 Review of Systems Unobtainable due to mental status Exam Const Orientation: alert HENMT Head: normal to inspection Ears: external ears normal General nose exam: external nose normal Mouth: moist mucous membranes Eyes General: appearance normal, both eyes and all related structures Neck Neck: normal visual inspection Resp Effort & Inspection: normal respiratory effort Cardio Rate: regular rate Skin General skin exam: no rashes or lesions noted Neuro General: patient alert and not oriented x3 Cranial Nerves: PERRL and EOM intact bilaterally Extrem General: normal to inspection Psych Mental Status: mental status grossly normal Medical Decision Making 85-year-old male who had a stroke on January 09 of this year whose family states that he is normally talkative and interactive with good energy states that they last saw him normal around 5 PM around suppertime and then he fell asleep and when he woke up they noticed he was not talking normally and he had facial droop so they called EMS. On arrival he is noted to have right facial droop and for most questions he does not answer questions but when asked his name he does state that his name is Mukul. He knows that he is in a hospital but does not know the year. He is very slurred speech. He has right leg drift that hits the bed, mild drift in the right arm. Unable to evaluate sensation due to the speech disturbances. He is on Eliquis already and given he had a stroke on January 09 he is not a lytic candidate. I will check a CT and CTA, CBC, CMP and troponins and have teleneurology evaluate. patient evaluated by neurology, they are unclear if this is truly a new stroke or not, recommend admission and mri in the morning, if no clear cause can obtain a spot eeg as well. Will discuss with hospitalist about admission Differential Diagnosis Differential Diagnosis: cva, hemorrhage, Medical Records Medical records reviewed: Yes I reviewed the patient's medical records. Lab Data Lab results reviewed: Yes I reviewed the patient's lab results. ECG Data Attestation: I personally reviewed and interpreted this ECG (s) as follows: Prior ECG tracings: available for review Interpretation: sinus tachycardia rate of 101 rbbb no stemi PFSH All Active Problems (Updated 03/15/25 @ 22:39 by Gary Hughes MD) Tachycardia (Acute) Acute alteration in mental status (Acute) Social History Smoking/Tobacco Use Status: Unknown Smoking risk assessment performed?: Yes Alcohol Intake: current Substance use type: does not use Housing: house
[2025-03-15] MEDS: Omnipaque 350 MG/ML 100 ML BTL IJ (19:58)
[2025-03-15 20:24] LABS: INR 1.1 (0.9-1.1); PTT Activated 28.3 sec (20.6-30.2); Prothrombin Time 11.2 sec (9.1-11.1)
[2025-03-15 20:25] LABS: ALT 40 U/L (16-63); AST 35 U/L (15-37); Albumin 3.5 g/dL (3.4-5.0); Alkaline Phosphatase 107 U/L (46-116); Anion Gap 11.3 mmol/L (3-11); BUN 23 mg/dL (7-18); Bilirubin, Total 0.9 mg/dL (0.2-1.0); CO2 25.7 mmol/L (21.0-32.0); Calcium 9.4 mg/dL (8.5-10.1); Chloride 102 mmol/L (98-107); Estimated GFR 53.50 (mL/min/1.73m2); Glucose 177 mg/dL (74-106); Magnesium 2.1 mg/dL (1.8-2.4); Potassium 4.1 mmol/L (3.5-5.1); Sodium 139 mmol/L (136-145); Total Protein 7.4 g/dL (6.4-8.2)
[2025-03-15 20:33] LABS: Troponin I 19 ng/L (<or=76)
--- NOTE | 2025-03-15 20:35 | DI.[facility]_ITS ---
PROCEDURE INFORMATION: Exam: CTA Head Without And With Contrast, Arteriography Exam date and time: 03/15/2025 7:56 PM Age: 85 years old Clinical indication: Stroke-like symptoms; Altered mental status/memory loss and speech disturbance; Right facial droop TECHNIQUE: Imaging protocol: Computed tomographic angiography of the head without and with contrast. Exam focused on the arteries. 3D rendering (Not supervised by radiologist): MIP and/or 3D reconstructed images were created by the technologist. Contrast material: OMNIPAQUE 350; Contrast volume: 70 ml; Contrast route: INTRAVENOUS (IV); Other technique: STROKE PROTOCOL was implemented. COMPARISON: CT BRAIN NECK CTA 01/07/2025 9:11 AM FINDINGS: ANTERIOR CIRCULATION: Right internal carotid artery: Peripheral calcified atherosclerotic plaque within the cavernous and clinoid segments. Intracranial segment is patent with no significant stenosis or occlusion. No aneurysm. Right middle cerebral artery: Small chronic calcification within the proximal M2 segment resulting in mild, less than 50%, stenosis. This is unchanged from the prior study. No occlusion or significant stenosis. No aneurysm. Right anterior cerebral artery: No occlusion or significant stenosis. No aneurysm. Left internal carotid artery: Peripheral calcific atherosclerotic plaque within the cavernous and clinoid segments. Intracranial segment is patent with no significant stenosis. No aneurysm. Left middle cerebral artery: No occlusion or significant stenosis. No aneurysm. Left anterior cerebral artery: No occlusion or significant stenosis. No aneurysm. POSTERIOR CIRCULATION: Right vertebral artery: Peripheral calcified atherosclerotic plaque within the mid V4 segment resulting in mild, less than 50%, stenosis. No occlusion or hemodynamically significant stenosis. No aneurysm. Left vertebral artery: Peripheral calcific atherosclerotic plaque throughout the mid V4 segment without occlusion or significant stenosis. No aneurysm. Basilar artery: Mild dolichoectasia of the basilar artery. No occlusion or significant stenosis. No aneurysm. Right posterior cerebral artery: Beaded appearance of the P1 segment resulting in areas of mild, less 50%, stenosis. No occlusion or significant stenosis. No aneurysm. Left posterior cerebral artery: No occlusion or significant stenosis. No aneurysm. Veins: Normal contrast opacification of the dural sinuses. HEAD: Brain: Moderate volume loss within the brain parenchyma. A small area of encephalomalacia is seen within the right lateral frontal lobe, consistent with a chronic infarct. Multifocal areas of low-attenuation are seen throughout the subcortical and periventricular white matter. No intracranial hemorrhage. No extra-axial fluid collection. No midline shift. No loss of ibanez-white differentiation to suggest an acute cortical infarct. Cerebral ventricles: No hydrocephalus. Bones: No evidence for acute skull fracture. Orbital cavities: Bilateral lens replacements. The intraorbital contents are otherwise normal appearance. Paranasal sinuses: Scattered mild mucosal thickening throughout the paranasal sinuses. The imaged paranasal sinuses are well aerated. No fluid levels. Mastoid air cells: The mastoid air cells are well aerated. Soft tissues: Unremarkable. IMPRESSION: 1. No large vessel occlusion or high-grade stenosis within the intracranial arteries. 2. No acute intracranial abnormality. 3. Chronic findings, described in detail above. ASSESSMENT: ASPECTS ([place] Stroke Program Early CT Score) is 10. PROCEDURE INFORMATION: Exam: CTA Neck Without And With Contrast Exam date and time: 03/15/2025 7:56 PM Age: 85 years old Clinical indication: Stroke-like symptoms; Altered mental status/memory loss and speech disturbance; Right facial droop TECHNIQUE: Imaging protocol: Computed tomographic angiography of the neck without and with contrast. Exam focused on the cervical segments of the vasculature. 3D rendering (Not supervised by radiologist): MIP and/or 3D reconstructed images were created by the technologist. Contrast material: OMNIPAQUE 350; Contrast volume: 70 ml; Contrast route: INTRAVENOUS (IV); COMPARISON: CT BRAIN NECK CTA 01/07/2025 9:11 AM FINDINGS: Right common carotid artery: No stenosis. No dissection or occlusion. Right internal carotid artery: Calcific, somewhat web-like, atherosclerotic plaque within the carotid bulb and proximal ICA resulting in mild, less than 50%, stenosis. No hemodynamically significant stenosis of the extracranial segment. No dissection or occlusion. The proximal ICA is moderately tortuous and extends into the retropharyngeal space. Right external carotid artery: No occlusion or stenosis of the origin. Left common carotid artery: No stenosis. No dissection or occlusion. Left internal carotid artery: Dense peripheral calcific atherosclerotic plaque within the carotid bulb and proximal ICA resulting in moderate, 50-60%, stenosis. Normal contrast opacification distal to the plaque without occlusion or additional high-grade stenosis. The ICA is moderately tortuous and extends into the retropharyngeal space. No dissection or occlusion. Left external carotid artery: No occlusion or stenosis of the origin. Right vertebral artery: Calcific atherosclerotic plaque within the origin without significant stenosis. No dissection or occlusion. Left vertebral artery: Calcific atherosclerotic plaque within the origin resulting in mild, less than 50%, stenosis. No high-grade stenosis. No dissection or occlusion. Aorta: The great vessels at the level of the aortic arch opacify normally with contrast without stenosis or occlusion. Soft tissues: Normal. No significant soft tissue swelling. Bones/joints: No acute fracture. Diffuse cervical spondylosis resulting in varying degrees of moderate to severe neural foraminal stenosis and mild spinal canal narrowing at C4-C5, C5-C6 and C6-C7. Lungs: The imaged lung apices are well aerated. IMPRESSION: 1. Mild, less than 50%, stenosis within the right carotid bulb and proximal ICA. The stenosis is due to calcified, somewhat web-like, atherosclerotic plaque. No occlusion. This finding is similar when compared to the prior study. 2. Moderate, 50-60%, stenosis within the left carotid bulb and proximal ICA. No occlusion. This finding is similar when compared to the prior study. 3. Otherwise, no stenosis or occlusion within the remaining extracranial/cervical arteries. REFERENCES: NASCET CRITERIA. The degree of stenosis in the cervical segment of the internal carotid artery is based on NASCET criteria. Normal is no stenosis. Mild is less than 50% stenosis. Moderate is 50-69% stenosis. Severe is 70% to 99% stenosis. Total occlusion is no detectable patent lumen. Dictated and Authenticated by: Tootie Mi MD. Orderin Ellen Vega MD
[2025-03-15 21:28] LABS: Abs Immature Grans 0.04 10^3/uL (0.0-0.06); HCT 45.3 % (40.0-50.0); HGB 14.8 g/dL (13.5-17.5); Immature Grans % 0.4 %; MCH 27.0 pg (27.0-33.0); MCHC 32.7 % (32.0-36.0); MCV 83 fL (80-95); MPV 9.9 fL (8.0-11.0); Platelet Count 218 10^3/uL (130-400); RBC 5.49 10^6/uL (4.36-5.78); RDW 15.2 % (11.8-14.1); RDW-SD 45.9 fL; WBC 10.47 10^3/uL (4.4-10.8)
[2025-03-15 22:25] LABS: Troponin I 19 ng/L (<or=76)
--- NOTE | 2025-03-15 23:19 | W.PM.HP.N ---
Date of service: 03/15/25 Time of Service: 23:19 Assessment and Plan Assessment and plan (1) CVA (cerebral vascular accident): Status: Chronic Assessment and plan: At this point I am awaiting a further input from teleneurology. I did do the discharge summary on the patient when he left in December. I put him on Eliquis and the patient was states that he been taking his medication as prescribed. if he in fact does have atrial fibs or atrial flutter Eliquis might be the best choice. If in fact he does not have have these arrhythmias would consider Plavix or aspirin. Consider consult to cardiology in the a.m. and await further recommendations from neurology. Regardless, if he did fail Eliquis and had a CVA, his most appropriate treatment is a bit more murky. I have reviewed his records and he has had at least 3 cardiac event monitors with only 1 mentioning of possible a flutter. Will order MRI of the brain. (2) Tachycardia: Status: Acute Assessment and plan: As mentioned above would consider cardiology consult in the a.m. (3) Acute alteration in mental status: Status: Acute Assessment and plan: Exact etiology unknown at this point but concerning for CVA. Patient does have a physical exam that is consistent with a CVA. Will order MRI as well. (4) Atrial fibrillation: Status: Chronic (5) Diabetes: Status: Chronic Assessment and plan: Patient takes glipizide and will hold this for now as he is n.p.o. today seen by speech therapy. He also takes Jardiance. (6) BPH (benign prostatic hyperplasia): Status: Chronic Assessment and plan: Continue with Flomax 0.4 mg nightly (7) Dyslipidemia: Status: Acute Assessment and plan: Continue with orders atorvastatin but will consider maximizing therapy if needed at that time another stroke. (8) Hypertension: Status: Chronic Assessment and plan: Will allow for permissive hypertension at least in the first 24 to 48 hours. Patient does take Lasix and metoprolol. Of note, the patient's CODE STATUS will need to be readdressed in the a.m. Since no family is available at this time I have the patient has a full code History of Present Illness History of Present Illness Chief Complaint: mental status change Narrative: Mr Lujan is a 85-year-old gentleman who was admitted to the hospital between 01/08/25-01/10/25 for mental status change and was diagnosed at that time with a stroke. Patient was discharged home in fair health but came back today with increasing somnolence and confusion patient did have a right facial droop and there was concern about a another stroke. Workup in the ED including a CT of the head was negative for acute pathology. His lab work was essentially fairly benign. Unfortunately by the time I saw the patient, the family was not in the room. Much of this H&P is through chart review. Patient does respond to verbal stimuli but is still quite somnolent and cannot give a linear history. When he was discharged from the hospital on his last admission he was discharged on Eliquis. In reviewing his records it does appear that there was been concerns about A-fib in the past. In reviewing one of his cardiac event monitors from March 09 there does mention a possible atrial flutter. Do not see any clear diagnosis of a flutter or A-fib. His rhythm strip did show periods of V. tach but nonsustained. His current EKG does show right bundle branch block but otherwise appears pretty benign. Review of Systems Unobtainable due to mental condition PFSH All Active Problems (Updated 03/15/25 @ 23:29 by Timothy Bird MD) Hypertension (Chronic) Dyslipidemia (Acute) BPH (benign prostatic hyperplasia) (Chronic) Diabetes (Chronic) Atrial fibrillation (Chronic) CVA (cerebral vascular accident) (Chronic) Tachycardia (Acute) Acute alteration in mental status (Acute) Social History Smoking/Tobacco Use Status: Unknown Smoking risk assessment performed?: Yes Alcohol Intake: current Substance use type: does not use Housing: house Meds Allergies and Home Medications Allergies Allergy/AdvReac Type Severity Reaction Status Date / Time aspartame AdvReac Intermediate Dizziness/L Verified 01/07/25 15:28 ighthead Home Medications ?Medication ?Instructions ?Recorded ?Confirmed ?Type cyclosporine 0.05 % eye drops in a 1 drp ophthalmic (eye) Q12H 01/07/25 03/15/25 History dropperette (Restasis) empagliflozin 10 mg tablet 20 mg PO DAILY 01/07/25 03/15/25 History (Jardiance) furosemide 20 mg tablet (Lasix) 20 mg PO DAILY PRN 01/07/25 03/15/25 History glipizide 5 mg tablet 5 mg PO DAILY 01/07/25 03/15/25 History metoprolol succinate 50 mg 100 mg PO DAILY 01/07/25 03/15/25 History tablet,extended release 24 hr tamsulosin 0.4 mg capsule (Flomax) 0.4 mg PO QHS 01/07/25 03/15/25 History apixaban 5 mg tablet (Eliquis) 5 mg PO BID 03/15/25 03/15/25 History aspirin 81 mg tablet,delayed 81 mg PO DAILY 03/15/25 03/15/25 History release (Adult Aspirin Regimen) atorvastatin 40 mg tablet (Lipitor) 40 mg PO QPM 03/15/25 03/15/25 History cholecalciferol (vitamin D3) 125 mcg PO DAILY 03/15/25 03/15/25 History Exam Narrative Exam Narrative: HEENT-normocephalic atraumatic mucous membranes are dry extract motions are intact Neck-no lymphadenopathy no JVD no thyromegaly Cardiovascular-regular rate and rhythm no murmurs gallops Lungs-clear to auscultation bilaterally with good air exchange Abdomen-soft nontender nondistended protuberant Extremities-no sinus clubbing or edema Neurologic-patient does have what appears to be a right sided facial droop. Patient can raise his eyebrows symmetrically. Patient does have 4-5 upper lower extremity strength. Results Labs 03/15/25 21:24 03/15/25 19:45 Labs: Laboratory Results - last 24 hr 03/15/25 03/15/25 03/15/25 19:45 21:24 21:33 WBC 10.47 RBC 5.49 Hgb 14.8 Hct 45.3 MCV 83 MCH 27.0 MCHC 32.7 RDW 15.2 H Plt Count 218 MPV 9.9 Immature Gran % 0.4 Neutrophils % 73.4 Lymphocytes % 15.4 Monocytes % 7.6 Eosinophils % 2.6 Basophils % 0.6 Nucleated RBC % 0.0 Absolute Neutrophils 7.69 H Absolute Lymphocytes 1.61 Absolute Monocytes 0.80 Absolute Eosinophils 0.27 Absolute Basophils 0.06 PT 11.2 H INR 1.1 APTT 28.3 Sodium 139 Potassium 4.1 Chloride 102 Carbon Dioxide 25.7 Anion Gap 11.3 H BUN 23 H Creatinine 1.3 Est GFR (CKD-EPI 2020) 53.50 Glucose 177 H Calcium 9.4 Magnesium 2.1 Total Bilirubin 0.9 AST 35 ALT 40 Alkaline Phosphatase 107 Troponin I 19 Cancelled Total Protein 7.4 Albumin 3.5 03/15/25 03/15/25 22:01 22:51 WBC RBC Hgb Hct MCV MCH MCHC RDW Plt Count MPV Immature Gran % Neutrophils % Lymphocytes % Monocytes % Eosinophils % Basophils % Nucleated RBC % Absolute Neutrophils Absolute Lymphocytes Absolute Monocytes Absolute Eosinophils Absolute Basophils PT INR APTT Sodium Potassium Chloride Carbon Dioxide Anion Gap BUN Creatinine Est GFR (CKD-EPI 2020) Glucose Calcium Magnesium Total Bilirubin AST ALT Alkaline Phosphatase Troponin I 19 Cancelled Total Protein Albumin Last Vital Signs Temp 36.4 C 03/15/25 20:15 Pulse 101 H 03/15/25 20:50 Resp 20 03/15/25 20:50 BP 134/85 03/15/25 20:46 Pulse Ox 94 03/15/25 20:50 Time Spent Time spent with Patient: >75 minutes Time was spent: preparing to see the patient(eg.review tests), obtaining and/or reviewing separately otained hiistory, ordering medications,tests, procedures, referring, communicating with other health adult daycare coordinator, indepentently interpreting results, counseling the patient and care coordination
[2025-03-16] VITALS (92 sets, daily range): BP systolic 97–161; BP diastolic 64–94; PULSE 60–122; RESP 0–29; TEMP 36.5–36.9; O2SAT 89–98
--- NOTE | 2025-03-16 | DI.MRI_ITS ---
Exam(s) MR BRAIN WO/W EXAM: MR BRAIN WO/W CLINICAL HISTORY: cva TECHNIQUE: Multiplanar multisequence MRI of the brain was performed. CONTRAST MATERIAL: IV Contrast: 20 mL of Dotarem contrast administered. COMPARISON: MR MR BRAIN WO from 01/09/[address] BRAIN NECK CTA from 03/15/2025 FINDINGS: The examination is limited due to patient motion artifact. VENTRICLES AND EXTRA AXIAL SPACES: Normal in size and morphology for the patient's age. HEMORRHAGE: None. CEREBRAL PARENCHYMA: There are areas of hyperintense signal seen in the FLAIR and T2 weighted images in the white matter consistent with chronic microvascular ischemic disease. There is an area of encephalomalacia involving the anterior aspect of the right parietal lobe consistent with the patient's recent infarct (01/09/2025). There is an area of restricted diffusion around the old infarct. This may be residual abnormal signal from the infarct 2 months ago. There are no other areas of restricted diffusion present. MIDLINE SHIFT: None. BRAINSTEM/CEREBELLUM: Normal. CALVARIUM: Normal. ENHANCEMENT: No suspicious enhancement identified. VISUALIZED PARANASAL SINUSES/MASTOIDS: Clear. [place]: Normal flow void. PITUITARY GLAND: Unremarkable. OTHER FINDINGS: IMPRESSION: 1. Encephalomalacia in the anterior aspect of the right parietal lobe consistent with the patient's recent infarct from 01/09/2025. There is an area of restricted diffusion around the old infarct. This may be residual abnormal signal from the prior infarct. Acute infarct should be considered. 2. Age-appropriate cerebral atrophy and chronic microvascular ischemic disease. 3. No evidence of an intracranial mass or enhancing lesion. DATA REPOSITORY:
[2025-03-16 00:27] LABS: Glucose >=1000 mg/dL (Negative)
[2025-03-16 00:31] LABS: C & S Indicated? No; RBC 0-2 HPF (0-2); WBC 0-2 HPF (0-5)
[2025-03-16 05:52] LABS: Abs Immature Grans 0.04 10^3/uL (0.0-0.06); HCT 49.0 % (40.0-50.0); HGB 15.9 g/dL (13.5-17.5); Immature Grans % 0.4 %; MCH 26.9 pg (27.0-33.0); MCHC 32.4 % (32.0-36.0); MCV 83 fL (80-95); MPV 10.1 fL (8.0-11.0); Platelet Count 219 10^3/uL (130-400); RBC 5.91 10^6/uL (4.36-5.78); RDW 15.2 % (11.8-14.1); RDW-SD 46.0 fL; WBC 11.19 10^3/uL (4.4-10.8)
[2025-03-16] MEDS: DEXTROSE 5%-0.45% SALINE 1,000 ML 75 ML IV (05:58)
[2025-03-16 06:07] LABS: ALT 33 U/L (16-63); AST 38 U/L (15-37); Albumin 3.4 g/dL (3.4-5.0); Alkaline Phosphatase 87 U/L (46-116); Anion Gap 8.9 mmol/L (3-11); BUN 18 mg/dL (7-18); Bilirubin, Total 1.3 mg/dL (0.2-1.0); CO2 28.1 mmol/L (21.0-32.0); Calcium 9.2 mg/dL (8.5-10.1); Chloride 103 mmol/L (98-107); Estimated GFR 65.38 (mL/min/1.73m2); Glucose 114 mg/dL (74-106); Potassium 4.6 mmol/L (3.5-5.1); Sodium 140 mmol/L (136-145); Total Protein 7.1 g/dL (6.4-8.2)
[2025-03-16] MEDS: Gadoterate meglumine 20 ML SYRINGE IVP (08:13)
[2025-03-16] MEDS: Normal Saline Flush 10 ML SYR IVP ×2 (08:14→21:23)
--- NOTE | 2025-03-16 10:04 | PDOC.CMIN ---
Date of service: 03/16/25 Time of Service: 10:04 Care Management Initial Assmt Initial Assessment Reason for Hospitalization: CVA Functional Status/Living Situation Patient Presentation: Mukul was lying in bed when CM met with him. His , Akanksha, who goes by Doug was in the room visiting. Mukul did not engage with CM verbally, but appeared to be following the conversation between CM and his . Doug stated that Mukul had a stroke two months ago, and was doing well at home, walking with a cane and talking clearly. He was discharged from last week. Today, he appears to have difficulty with speech; his stated that his thinking is slow. Mukul has two daughters and three step children, as well as siblings who all live in the community and are very supportive. He met with speech therapy and PT in the ED. Doug stated that she expects that Mukul will have services again at home once he is ready for discharge. CM will continue to follow. Town of Residence: [place] Resides with: Spouse (Doug) Significant Other/Family: Local Natural Supports: , two children, three step children and siblings Employment Status: Retired Instrumental Activities of Daily Living (ADLs): Independent Medications Medication Management: No Issues/Barriers identified Physical Functioning/Mobility Assistive Device: cane Advance Directives Advance Directives: Do you have an Advance Directive: Y 02/14/25, 13:[address] [facility]: Y 02/14/25, 13:11 Date Asked 01/07/25 02/14/25, 13:11 AD Date Reviewed 03/15/25 Today, 07:[address] [facility] COLST Date Scanned Code Status Resuscitation Status Full Code Insurance Coverage/Financial Issues Insurance: [facility] supplement Care Team Visit Care Team Role Provider Type Kamron Sandoval MD [facility] STAFF PHYSICIAN Valery Cash Primary Care Provider NURSE PRACTITIONER Montserrat Huerta, WHITE WASHER Other Providers SPEECH LANGUAGE PATHOLOGIST Karlie Govea, WHITE WASHER Other Providers SPEECH LANGUAGE PATHOLOGIST Dee Dee Rodriges Other Providers SPEECH LANGUAGE PATHOLOGIST Nicky Templeton, WHITE WASHER Other Providers SPEECH LANGUAGE PATHOLOGIST Nina Schwarz, WHITE WASHER Other Providers SPEECH LANGUAGE PATHOLOGIST Sheila Taylor Other Providers OTHER Gary Hughes MD Emergency Provider [facility] STAFF PHYSICIAN Timothy Bird MD Admit Provider [facility] STAFF PHYSICIAN Attending Provider Discharge Potential Discharge Needs: PCP F/U Appt Anticipated Barriers to Discharge: None Identified Patient/Family Education Needs: Review discharge instructions, discuss Ask Me Three Transportation: Private vehicle Plan: Anticipate Mukul will return home when medically cleared. He may benefit from new RN, PT, OT. He will be driven home via private vehicle by family. He will follow up with his PCP and discharge plan of care. CM will continue to follow. Social Determinants of Health Screening Will the Patient Participate in the Screening?: Declined to provide Do you worry about having a steady place to live?: choose not to answer PFSH All Active Problems (Updated 03/15/25 @ 23:29 by Timothy Bird MD) Hypertension (Chronic) Dyslipidemia (Acute) BPH (benign prostatic hyperplasia) (Chronic) Diabetes (Chronic) Atrial fibrillation (Chronic) CVA (cerebral vascular accident) (Chronic) Tachycardia (Acute) Acute alteration in mental status (Acute) Social History Smoking/Tobacco Use Status: Unknown Smoking risk assessment performed?: Yes Alcohol Intake: current Substance use type: does not use Housing: house
--- NOTE | 2025-03-16 13:05 | SP_ITS ---
Date of service: 03/16/25 Time of Service: 12:30 Subjective Clinical (Bedside) Swallow Evaluation Speech Language Pathology Referred by: Dr Timothy Bird Referral Type: Clinical Swallow Evaluation Reason for Referral/HPI: Mukul Lujan is an 85 yo male with PMH significant for recent CVA in December 2024 (R parietal lobe), macular degneration, and DM who was admitted with AMS, R facial droop, an slurred speech. He is NPO pending BENCH WORKER APPRENTICE evaluation. MRI is pending. BENCH WORKER APPRENTICE IMPRESSIONS & RECOMMENDATIONS: Mukul seen upright in bed in the ED with present. He was alert and oriented to self//situation but not to the month (March) or year (...). His denies dysphagia at baseline and states slurred speech is also new to this admission. He demonstrates slowed oral movements but was able to tolerate PO without overt s/s aspiration. Swallow reflex appears timely/strong and vocal quality remained clear throughout trials. Recommend initiate PO with strict aspiration precautions in place as outlined below. FURTHER BENCH WORKER APPRENTICE SERVICES: Patient to be followed while on unit to monitor swallow function and further assess speech/language. Diet Recommendations: SOLIDS- L6 Soft & Bite Sized LIQUIDS - L0 thin liquids MEDICATIONS - As tolerated, one at a time with sips liquid or with applesauce SUPERVISION - 1:1 assist (d/t current R side weakness & confusion) PRECAUTIONS: - [place] upright as able with PO - Remain upright for at least 30 min after eating - Small/slow bites and sips - Use tactile prompting (pinch straw/hand over hand) to limit sips size as needed - Oral hygiene before/after meals SUBJECTIVE: Patient received alert/awake, confused, agreeable to evaluation Pain Reported? None Baseline Swallow Function: Patient's denies swallowing difficulty prior to admission and eats a regular diet at baseline. He is edentulous but still eats meat/steak/etc. PO Trials Assessed: IDDSI 0 Thin Liquids IDDSI 4 Puree Solid - 2 ounces applesauce IDDSI 6 Soft & Bite Size Solid - 3-4 bites of diced peaches IDDSI 7EC Easy to Chew Solid - fig herzog cookie Oral Mechanism Examination: Patient is edentulous Cranial Nerve Assessment: CN V ? Trigeminal Facial Sensation WNL Jaw Strength/ROM WNL ?WNL CN VII- Facial R facial droop impaired CN IX ? Glossopharyngeal WNL palatal elevation with phonation. No evidence of nasal emissions WNL CN X ? Vagus WNL Vocal quality and volume. Strong/sharp volitional cough WNL CX XII ? Hypoglossal At least mild global lingual weakness noted Impaired Oral Phase Findings: Anterior leakage from mouth Otherwise WFL Pharyngeal Phase Findings: Timely swallow reflex Single swallow per bite/sip Cough x1 following sequential sips of liquid Voice remained clear/strong ? ASSESSMENT: Further BENCH WORKER APPRENTICE Services indicated. Patient to be followed while on unit. Recommendation at Discharge: To be determined Suggested Referrals: N/A Recommended Procedures: N/A Education Provided to: Nursing, Patient, Family/ Topics Addressed: BENCH WORKER APPRENTICE findings, aspiration precautions PLAN: Frequency: 2-3x/week for 1-2 weeks Goals: Longterm Goals: Patient will remain free from aspiration-related illness, malnutrition, and dehydration. Short Term Goals: Patient will participate in ongoing diagnostic treatment addressing areas of speech/language/cognition. Patient will tolerate Soft & Bite Sized Diet and Thin liquids without overt s/s aspiration across 2/2 visits. Patient will tolerate PO trials for consideration of diet upgrade without overt s/s aspiration across 2/2 visits. BENCH WORKER APPRENTICE CPT Code: 36100 Clinical Swallowing Evaluation [id number] TOTAL TIME: 30 Minutes
--- NOTE | 2025-03-16 13:32 | PHA.ACLINAW ---
Renal Dosing Renal Dosing: BUN 18 mg/dL (7-18) 03/16/25 05:45 Creatinine 1.1 mg/dL (0.70-1.30) 03/16/25 05:45 Medications needing adjustments: Reviewed (CrCl=65; no meds need adjustment) Anticoagulation Anticoagulation: Hgb 15.9 g/dL (13.5-17.5) 03/16/25 05:45 Hct 49.0 % (40.0-50.0) 03/16/25 05:45 Plt Count 219 10^3/uL (130-400) 03/16/25 05:45 INR 1.1 (0.9-1.1) 03/15/25 19:45 Creatinine 1.1 mg/dL (0.70-1.30) 03/16/25 05:45 Therapeutic Anticoagulation: Reviewed (pt on eliquis at home, being held due to concern for bleeding. ) Opiate Usage Evaluate Pain Scale/Pains Meds: Reviewed (no pain meds) Scheduled Bowel Reg ordered if on Opiates?: No Relevant Labs Relevant Labs: Sodium 140 mmol/L (136-145) 03/16/25 05:45 Potassium 4.6 mmol/L (3.5-5.1) 03/16/25 05:45 Chloride 103 mmol/L (98-107) 03/16/25 05:45 Magnesium 2.1 mg/dL (1.8-2.4) 03/15/25 19:45 Electrolytes, C-Reactive P, ESR: Reviewed (no intervention needed) DM Control DM Control: Glucose 114 mg/dL (74-106) H 03/16/25 05:45 Finger Stick Blood Glucose 132 Finger Stick Blood Glucose 132 DM Control: Reviewed Insulin Dosing, Diabetic Medication: History of DM2. Holding home glipize and jardiance for now. Cardiac Review Cardiac Review: Troponin I Cancelled 03/15/25 22:51 BP, HR, EF%: Reviewed List meds needing interventions: reviewed BP/Hr. Allowing for permissive hypertension at least 24-48 hours. Holding lasix and metoprolol. QTc Review QTc: Reviewed List meds needing interventions: [id number] IV to PO Switch IV Medications: Reviewed Home Meds Relevent Home Meds Not ordered & why?: home meds held per above. will discuss with provider which ones can be restarted at this time. Current Meds Current Medication Order Review: Reviewed
[2025-03-16] MEDS: Nystatin POWDER 60 GM JAR TP (14:51)
--- NOTE | 2025-03-16 14:53 | PT.INIE ---
PT Notes Visit Reasons: Cerebrovascular accident Physical Therapy Inpatient Initial Evaluation Date: 03/16/2025 Referring Doctor: Dr Bird PT Orders: PT CONSULT: PT evaluation and treatment Precautions: Standard Patient Profile/Admitting Diagnosis: Patient is a 85-year-old male presented to the ED with increasing somnolence and confusion patient did have a right facial droop and there was concern about a another stroke. Workup in the ED including a CT of the head was negative for acute pathology. Teleneuro consult pending. MRI 1. Encephalomalacia in the anterior aspect of the right parietal lobe consistent with the patient's recent infarct from 01/09/2025. There is an area of restricted diffusion around the old infarct. This may be residual abnormal signal from the prior infarct. Acute infarct should be considered. 2. Age-appropriate cerebral atrophy and chronic microvascular ischemic disease. 3. No evidence of an intracranial mass or enhancing lesion. Patient with medication adjustments and admitted to hospital for further medical monitoring and PT consult. PMHX: Hypertension (Chronic) Dyslipidemia (Acute) BPH (benign prostatic hyperplasia) (Chronic) Diabetes (Chronic) Atrial fibrillation (Chronic) CVA (cerebral vascular accident) (Chronic) Tachycardia (Acute) Acute alteration in mental status (Acute) Social History/Home Situation: Patient resides with his in single-family home4 steps with bilateral rails to enter. Patient ambulates with walker with wheels assists with ADLs Owned/DME: Walker Subjective: Patient reports he is feeling better and that his bottom is sore from being on the stretcher so long Objective: [] General Observation: Elderly male semireclined on stretcher in the emergency department. present at bedside. Granger catheter in place Mental Status: Oriented to person and place, able to follow instructions, agreeable to participate in evaluation Pain: Denied ROM: [] Right Upper Extremity:WFL Left Upper Extremity: WFL Right Lower Extremity: WFL DF to neutral Left Lower Extremity: WFL DF to neutral Strength: [] Right Upper Extremity: Grossly 3- out of 5 Left Upper Extremity: Grossly 4/5 Right Lower Extremity: Grossly able to perform straight leg raise plantarflexion dorsiflexion against resistance Left Lower Extremity: Grossly 4/5 Sensation: intact Bed Mobility/Transfers: [] Supine to sit min A Sit to stand min A cues for hands Stand to sit CGA cues for hands Bed to chair CGA with FWW Gait: amb CGA with FWW 80 feet with 1 turn decreased foot clearance on right Balance: [] Static Sitting: Good Dynamic Sitting: Fair plus Static Standing: Good with FWW Dynamic Standing: Fair with FWW Special Tests: [] Mobility Limitations Standardized Measure [] [facility] 6 clicks Basic Mobility Inpatient Short Form: [] Raw Score: 18 CMS Score:46.58% Informed Consent/Education: Patient instructed in purpose of PT consult. Assessment: Patient is AN 85-year-old male who presents with clinical signs and symptoms consistent with current/admitting diagnoses that have resulted to mobility limitations, gait instability, generalized weakness, and impairment of motor control as demonstrated by the following impairment level findings: 1. Decreased strength/motor control to BUE/LE major muscle groups R>L 2. Impaired standing balance 3. Limitation of joint range of motion in B Ankles 4. Impaired functional activity tolerance Impairments are contributing to the following functional limitations: 1. Inability to safely ambulate without assistive device 2. Increase completion time for mobility ADL performance 3. Increased fall risk 4. Decline in transfer skills 5. Decline in bed mobility skills 6. Difficulty performing stairs without assistance Patient is assessed as a moderate complexity based on the following: History: 85-year-old male with impairment level findings, functional limitations, and past medical history as indicated above Examination: Demonstrable impairment in strength, balance, and mobility level with underlying impairments and functional limitations as documented above Presentation: evolving Decision Making: moderate Goals: 1. Supervision bed mobility 2. supervision with cues for hand placement sit to from stand 3. Supervision ambulation 300 feet with FWW 4. CGA 4 steps with 2 rails to safely enter and exit home Plan of Care/Treatment Plan: 1-2x/day, 7 days/week x 1 week. Plan of care has been reviewed with the RN CHARGE providing the service under Physical Therapy direction. Initiate Physical Therapy intervention for strengthening, bed mobility, transfers, gait, stairs, balance training, use of assistive device. DISCHARGE RECOMMENDATIONS: Home with PT when medically appropriate TREATMENT CODE/TIME: 60318/ [id number] Thank you for the opportunity to participate in the care of this patient. Lary Rosenberg PT [facility]
--- NOTE | 2025-03-16 16:55 | W.PC.ACHO ---
Registration Status: ADM IN Primary Language: Preferred Language: Uzbek ED Information & Data Chief Complaint CVA/TIA 03/15/25 20:19 Chief Complaint CVA/TIA 03/15/25 20:15 Triage Note Pt BIBA with stroke like 03/15/25 20:15 symptoms. R sided facial droop and speech slur noted during triage. Last known well around 1700 Most Recent Vital Signs Temperature 36.9 C 03/16/25 01:42 Temperature Source Tympanic 03/16/25 01:42 Pulse 78 03/16/25 12:31 Pulse 79 03/16/25 12:31 Respiratory Rate 14 03/16/25 12:31 Respiratory Effort Normal, Non-Labored 03/15/25 20:19 Respiratory Depth Normal 03/15/25 20:19 Respiratory Pattern Normal 03/15/25 20:19 Blood Pressure 161/94 H 03/16/25 12:31 Blood Pressure Mean 117 03/16/25 12:31 Pulse Oximetry 94 03/16/25 12:31 Oxygen Delivery Method Room Air 03/15/25 20:15 Oxygen Flow Rate 0 03/15/25 20:15 Pain Level 0 03/16/25 16:04 Allergies aspartame Adverse Reaction (Intermediate, Verified 01/07/25 15:28) Dizziness/Lighthead Active Medications Generic Name Dose Route Start Last Admin Trade Name Reaganq PRN Reason Stop Dose Admin Gadoterate Meglumine 20 ml 03/16/25 08:15 03/16/25 08:13 Gadoterate Meglumine 20 Ml Syringe IVP 04/15/25 23:59 20 ml DIRECTED RUBI Administration Iohexol 100 ml 03/15/25 20:00 03/15/25 19:58 Omnipaque 350 Mg/Ml 100 Ml Btl IJ 04/14/25 23:59 75 ml DIRECTED RUBI Administration Nystatin 0 gm 03/16/25 08:30 03/16/25 14:51 Nystatin Powder 60 Gm Jar TP 1 btl TID RUBI Administration Sodium Chloride 0 ml 03/15/25 20:00 03/16/25 10:19 Normal Saline Flush 10 Ml Syr IVP Not Given BID RUBI Sodium Chloride 0 ml 03/15/25 19:54 03/15/25 19:54 Normal Saline Flush 10 Ml Syr IVP 10 ml PRN PRN Administration Sodium Chloride 50 ml 03/15/25 20:00 03/15/25 19:54 Normal Saline - Diluent 50 Ml Vial IJ 50 ml DIRECTED RUBI Administration Sodium Chloride 0 ml 03/16/25 08:14 03/16/25 08:14 Normal Saline Flush 10 Ml Syr IVP 10 ml PRN PRN Administration IV IV Catheter Type [Left Hand] Peripheral IV IV Catheter Gauge [Left Hand] 20 Diet Orders Category Date Time Status DIET [Regular/Normal] [DIET] Nutrition 03/16/25 Dinner Active Diagnostics 03/16/25 03/16/25 03/16/25 Range/Units 05:45 00:35 00:16 WBC 11.19 H (4.4-10.8) 10^3/uL RBC 5.91 H (4.36-5.78) 10^6/uL Hgb 15.9 (13.5-17.5) g/dL Hct 49.0 (40.0-50.0) % MCV 83 (80-95) fL MCH 26.9 L (27.0-33.0) pg MCHC 32.4 (32.0-36.0) % RDW 15.2 H (11.8-14.1) % Plt Count 219 (130-400) 10^3/uL MPV 10.1 (8.0-11.0) fL Immature Gran % 0.4 % Neutrophils % 69.2 % Lymphocytes % 19.1 % Monocytes % 8.0 % Eosinophils % 2.8 % Basophils % 0.5 % Nucleated RBC % 0.0 (0.0-0.3) % Absolute Neutrophils 7.74 H (1.2-6.7) 10^3/uL Absolute Lymphocytes 2.14 (1.2-3.4) 10^3/uL Absolute Monocytes 0.90 H (0.1-0.8) 10^3/uL Absolute Eosinophils 0.31 (0.0-0.7) 10^3/uL Absolute Basophils 0.06 (0.0-0.2) 10^3/uL PT (9.1-11.1) sec INR (0.9-1.1) APTT (20.6-30.2) sec Sodium 140 (136-145) mmol/L Potassium 4.6 (3.5-5.1) mmol/L Chloride 103 (98-107) mmol/L Carbon Dioxide 28.1 (21.0-32.0) mmol/L Anion Gap 8.9 (3-11) mmol/L BUN 18 (7-18) mg/dL Creatinine 1.1 (0.70-1.30) mg/dL Est GFR (CKD-EPI 2020) 65.38 (mL/min/1.73m2) Glucose 114 H (74-106) mg/dL Calcium 9.2 (8.5-10.1) mg/dL Magnesium (1.8-2.4) mg/dL Total Bilirubin 1.3 H (0.2-1.0) mg/dL AST 38 H (15-37) U/L ALT 33 (16-63) U/L Alkaline Phosphatase 87 (46-116) U/L Troponin I (<or=76) ng/L Total Protein 7.1 (6.4-8.2) g/dL Albumin 3.4 (3.4-5.0) g/dL Urine Color Cancelled Yellow (Yellow) Urine Clarity Cancelled Clear (Clear) Urine pH Cancelled 5.5 (5-8) Ur Specific [place] Cancelled 1.010 (1.005-1.025) Urine Protein Cancelled Negative (Neg-Trace) mg/dL Urine Ketones Cancelled Negative (Negative) mg/dL Urine Blood Cancelled Trace-intact H (Negative) Urine Nitrite Cancelled Negative (Negative) Urine Bilirubin Cancelled Negative (Negative) Urine Urobilinogen Cancelled 0.2 (Up to 0.2) mg/dL Ur Leukocyte Esterase Cancelled Negative (Negative) Urine RBC 0-2 (0-2) HPF Urine WBC 0-2 (0-5) HPF Ur Epithelial Cells Negative (Negative) HPF Urine Crystals Negative (Negative) HPF Urine Bacteria Negative (Negative) HPF Urine Casts Negative (Negative) LPF Urine Mucus Negative (Negative) Ur Culture Indicated? No Urine Glucose Cancelled >=1000 H (Negative) mg/dL 03/15/25 03/15/25 03/15/25 Range/Units 22:51 22:01 21:33 WBC (4.4-10.8) 10^3/uL RBC (4.36-5.78) 10^6/uL Hgb (13.5-17.5) g/dL Hct (40.0-50.0) % MCV (80-95) fL MCH (27.0-33.0) pg MCHC (32.0-36.0) % RDW (11.8-14.1) % Plt Count (130-400) 10^3/uL MPV (8.0-11.0) fL Immature Gran % % Neutrophils % % Lymphocytes % % Monocytes % % Eosinophils % % Basophils % % Nucleated RBC % (0.0-0.3) % Absolute Neutrophils (1.2-6.7) 10^3/uL Absolute Lymphocytes (1.2-3.4) 10^3/uL Absolute Monocytes (0.1-0.8) 10^3/uL Absolute Eosinophils (0.0-0.7) 10^3/uL Absolute Basophils (0.0-0.2) 10^3/uL PT (9.1-11.1) sec INR (0.9-1.1) APTT (20.6-30.2) sec Sodium (136-145) mmol/L Potassium (3.5-5.1) mmol/L Chloride (98-107) mmol/L Carbon Dioxide (21.0-32.0) mmol/L Anion Gap (3-11) mmol/L BUN (7-18) mg/dL Creatinine (0.70-1.30) mg/dL Est GFR (CKD-EPI 2020) (mL/min/1.73m2) Glucose (74-106) mg/dL Calcium (8.5-10.1) mg/dL Magnesium (1.8-2.4) mg/dL Total Bilirubin (0.2-1.0) mg/dL AST (15-37) U/L ALT (16-63) U/L Alkaline Phosphatase (46-116) U/L Troponin I Cancelled 19 Cancelled (<or=76) ng/L Total Protein (6.4-8.2) g/dL Albumin (3.4-5.0) g/dL Urine Color (Yellow) Urine Clarity (Clear) Urine pH (5-8) Ur Specific [place] (1.005-1.025) Urine Protein (Neg-Trace) mg/dL Urine Ketones (Negative) mg/dL Urine Blood (Negative) Urine Nitrite (Negative) Urine Bilirubin (Negative) Urine Urobilinogen (Up to 0.2) mg/dL Ur Leukocyte Esterase (Negative) Urine RBC (0-2) HPF Urine WBC (0-5) HPF Ur Epithelial Cells (Negative) HPF Urine Crystals (Negative) HPF Urine Bacteria (Negative) HPF Urine Casts (Negative) LPF Urine Mucus (Negative) Ur Culture Indicated? Urine Glucose (Negative) mg/dL 03/15/25 03/15/25 Range/Units 21:24 19:45 WBC 10.47 (4.4-10.8) 10^3/uL RBC 5.49 (4.36-5.78) 10^6/uL Hgb 14.8 (13.5-17.5) g/dL Hct 45.3 (40.0-50.0) % MCV 83 (80-95) fL MCH 27.0 (27.0-33.0) pg MCHC 32.7 (32.0-36.0) % RDW 15.2 H (11.8-14.1) % Plt Count 218 (130-400) 10^3/uL MPV 9.9 (8.0-11.0) fL Immature Gran % 0.4 % Neutrophils % 73.4 % Lymphocytes % 15.4 % Monocytes % 7.6 % Eosinophils % 2.6 % Basophils % 0.6 % Nucleated RBC % 0.0 (0.0-0.3) % Absolute Neutrophils 7.69 H (1.2-6.7) 10^3/uL Absolute Lymphocytes 1.61 (1.2-3.4) 10^3/uL Absolute Monocytes 0.80 (0.1-0.8) 10^3/uL Absolute Eosinophils 0.27 (0.0-0.7) 10^3/uL Absolute Basophils 0.06 (0.0-0.2) 10^3/uL PT 11.2 H (9.1-11.1) sec INR 1.1 (0.9-1.1) APTT 28.3 (20.6-30.2) sec Sodium 139 (136-145) mmol/L Potassium 4.1 (3.5-5.1) mmol/L Chloride 102 (98-107) mmol/L Carbon Dioxide 25.7 (21.0-32.0) mmol/L Anion Gap 11.3 H (3-11) mmol/L BUN 23 H (7-18) mg/dL Creatinine 1.3 (0.70-1.30) mg/dL Est GFR (CKD-EPI 2020) 53.50 (mL/min/1.73m2) Glucose 177 H (74-106) mg/dL Calcium 9.4 (8.5-10.1) mg/dL Magnesium 2.1 (1.8-2.4) mg/dL Total Bilirubin 0.9 (0.2-1.0) mg/dL AST 35 (15-37) U/L ALT 40 (16-63) U/L Alkaline Phosphatase 107 (46-116) U/L Troponin I 19 (<or=76) ng/L Total Protein 7.4 (6.4-8.2) g/dL Albumin 3.5 (3.4-5.0) g/dL Urine Color (Yellow) Urine Clarity (Clear) Urine pH (5-8) Ur Specific [place] (1.005-1.025) Urine Protein (Neg-Trace) mg/dL Urine Ketones (Negative) mg/dL Urine Blood (Negative) Urine Nitrite (Negative) Urine Bilirubin (Negative) Urine Urobilinogen (Up to 0.2) mg/dL Ur Leukocyte Esterase (Negative) Urine RBC (0-2) HPF Urine WBC (0-5) HPF Ur Epithelial Cells (Negative) HPF Urine Crystals (Negative) HPF Urine Bacteria (Negative) HPF Urine Casts (Negative) LPF Urine Mucus (Negative) Ur Culture Indicated? Urine Glucose (Negative) mg/dL [id number] Documentation Fingerstick Glucose Start: 03/16/25 09:36 Freq: Status: Active Protocol: Activity Type Activity Date Activity User E-sign Co-sign Detail Recorded Client Recorded Date Recorded By Document 03/16/25 14:08 BKG DAEMON(3) [id number] 03/16/25 14:09 BKG DAEMON(4) Intake and Output - 24 Hour Total 03/15/25 19:47 thru 03/16/25 16:26 Intake Total 1300 Output Total 2425 Balance -1125 Weight 98.543 kg Intake: IV 1000 Oral 300 Output: Urine 2425 Other: Urine Color Yellow Urine Appearance Clear Urinary Catheter Urinary Catheter Date of 03/16/25 Insertion [Urethral ([place])] Time of insertion [Urethral ( 06:46 [place])] Falls Risk Assessment History of Falls Previous History 03/15/25 20:19 Contributing Factors Confusion,Impairments, 03/15/25 20:19 Incontinence Ambulatory Aids Uses ambulatory device + 03/15/25 20:19 Tubes/Lines With any additional score 03/15/25 20:19 Gait Evaluation W/any additional score 03/15/25 20:19 Fall Total Score 94 03/15/25 20:19 Level of Risk Maximum Risk 03/15/25 20:19 Problems Hypertension (Chronic) Dyslipidemia (Acute) BPH (benign prostatic hyperplasia) (Chronic) Diabetes (Chronic) Atrial fibrillation (Chronic) CVA (cerebral vascular accident) (Chronic) Tachycardia (Acute) Acute alteration in mental status (Acute) v v v v v v v v v Sending and/or Receiving Nurses: Please use comment section below to note any information pertinent to the patient hand-off not included above. Information / Comments: Pt arrived on floor at 1610 and was able to stand on the scale for weight. Pt settled into bed and oriented to room. Pt's IV is clean dry and intact and flushes well. Call oliveira within reach. Pt walks with a walker and 1 assist. Pt aware to call for assistance if he needs to get OOB. Pt agreed. Report received from:
[2025-03-16] MEDS: glipiZIDE 5 MG TAB PO (17:19)
[2025-03-16] MEDS: Empaglifozin 10 MG TAB 20 MG PO (17:20)
[2025-03-16] MEDS: Aspirin E.C. 81 MG TABEC PO (17:20)
--- NOTE | 2025-03-16 17:35 | PGE_ITS ---
Date of Service Date of service: 03/16/25 Time of Service: 17:35 Assessment and Plan Assessment and plan (1) CVA (cerebral vascular accident): Status: Chronic Assessment and plan: MRI showing some attenuation around previous stroke, which is c/w his presenation. Per MRI this could be residual or possible new marginal ischemia. Exam and MS has improved. Teleneurology recommended resuming apixaban (for h/o atrial fibrillation) and aspirin.At this point I am awaiting a further input from teleneurology. Cleared by TRADING ANALYST, needs to work with PT permissive HTN for first 24 hr (2) Tachycardia: Status: Acute Assessment and plan: Has normalized (3) Atrial fibrillation: Status: Chronic Assessment and plan: paroxysmal. Continue metoprolol and apixaban (4) Diabetes: Status: Chronic Assessment and plan: Patient takes glipizide and Jardiance. Has not tolerated metformin. GLP-1 would be associated with lower risk of hypoglycemia and better cardiac and renal outcomes, but he had diarrhea with Trulicity. Could try semaglutide or terzepetide as outpatient instead of glipizide. FS glucose and ISS for now. (5) BPH (benign prostatic hyperplasia): Status: Chronic Assessment and plan: Continue with Flomax 0.4 mg nightly (6) Dyslipidemia: Status: Acute Assessment and plan: Continue with atorvastatin, repeat lipids, consider maximizing therapy if LDL not 50 or lower. (7) Hypertension: Status: Chronic Assessment and plan: Will allow for permissive hypertension at least in the first 24 to 48 hours. He is DNR per UTD advanced directive Subjective Subjective Patient reports: feels better and tolerating a regular diet; denies vomiting, shortness of breath or fever Interval history since last seen: Had MRI Seen by TRADING ANALYST, cleared to eat lares placed. Per his he is much better. More alert. Still some right facial weakness. Exam Narrative Exam Narrative: GEN: Alert, cooprerates with exam but minimally vocal, gives history. Cardiovascular-regular rate and rhythm no murmurs gallops Lungs-clear to auscultation bilaterally with good air exchange Abdomen-soft nontender nondistended protuberant Extremities-no sinus clubbing or edema Neurologic- CN intact other than right facial droop sparing forehead. He can't do pronator drift (since last stroke per ) but UE/LE strength roughly symmetric. no tremor or hyperreflexia. Objective Last Vital Signs Temp 36.9 C 03/16/25 01:42 Pulse 78 03/16/25 12:31 Resp 14 03/16/25 12:31 BP 161/94 H 03/16/25 12:31 Pulse Ox 94 03/16/25 12:31 Laboratory Results - last 24 hr 03/15/25 03/15/25 03/15/25 19:45 21:24 21:33 WBC 10.47 RBC 5.49 Hgb 14.8 Hct 45.3 MCV 83 MCH 27.0 MCHC 32.7 RDW 15.2 H Plt Count 218 MPV 9.9 Immature Gran % 0.4 Neutrophils % 73.4 Lymphocytes % 15.4 Monocytes % 7.6 Eosinophils % 2.6 Basophils % 0.6 Nucleated RBC % 0.0 Absolute Neutrophils 7.69 H Absolute Lymphocytes 1.61 Absolute Monocytes 0.80 Absolute Eosinophils 0.27 Absolute Basophils 0.06 PT 11.2 H INR 1.1 APTT 28.3 Sodium 139 Potassium 4.1 Chloride 102 Carbon Dioxide 25.7 Anion Gap 11.3 H BUN 23 H Creatinine 1.3 Est GFR (CKD-EPI 2020) 53.50 Glucose 177 H Calcium 9.4 Magnesium 2.1 Total Bilirubin 0.9 AST 35 ALT 40 Alkaline Phosphatase 107 Troponin I 19 Cancelled Total Protein 7.4 Albumin 3.5 Urine Color Urine Clarity Urine pH Ur Specific [place] Urine Protein Urine Ketones Urine Blood Urine Nitrite Urine Bilirubin Urine Urobilinogen Ur Leukocyte Esterase Urine RBC Urine WBC Ur Epithelial Cells Urine Crystals Urine Bacteria Urine Casts Urine Mucus Ur Culture Indicated? Urine Glucose 03/15/25 03/15/25 03/16/25 22:01 22:51 00:16 WBC RBC Hgb Hct MCV MCH MCHC RDW Plt Count MPV Immature Gran % Neutrophils % Lymphocytes % Monocytes % Eosinophils % Basophils % Nucleated RBC % Absolute Neutrophils Absolute Lymphocytes Absolute Monocytes Absolute Eosinophils Absolute Basophils PT INR APTT Sodium Potassium Chloride Carbon Dioxide Anion Gap BUN Creatinine Est GFR (CKD-EPI 2020) Glucose Calcium Magnesium Total Bilirubin AST ALT Alkaline Phosphatase Troponin I 19 Cancelled Total Protein Albumin Urine Color Yellow Urine Clarity Clear Urine pH 5.5 Ur Specific [place] 1.010 Urine Protein Negative Urine Ketones Negative Urine Blood Trace-intact H Urine Nitrite Negative Urine Bilirubin Negative Urine Urobilinogen 0.2 Ur Leukocyte Esterase Negative Urine RBC 0-2 Urine WBC 0-2 Ur Epithelial Cells Negative Urine Crystals Negative Urine Bacteria Negative Urine Casts Negative Urine Mucus Negative Ur Culture Indicated? No Urine Glucose >=1000 H 03/16/25 03/16/25 00:35 05:45 WBC 11.19 H RBC 5.91 H Hgb 15.9 Hct 49.0 MCV 83 MCH 26.9 L MCHC 32.4 RDW 15.2 H Plt Count 219 MPV 10.1 Immature Gran % 0.4 Neutrophils % 69.2 Lymphocytes % 19.1 Monocytes % 8.0 Eosinophils % 2.8 Basophils % 0.5 Nucleated RBC % 0.0 Absolute Neutrophils 7.74 H Absolute Lymphocytes 2.14 Absolute Monocytes 0.90 H Absolute Eosinophils 0.31 Absolute Basophils 0.06 PT INR APTT Sodium 140 Potassium 4.6 Chloride 103 Carbon Dioxide 28.1 Anion Gap 8.9 BUN 18 Creatinine 1.1 Est GFR (CKD-EPI 2020) 65.38 Glucose 114 H Calcium 9.2 Magnesium Total Bilirubin 1.3 H AST 38 H ALT 33 Alkaline Phosphatase 87 Troponin I Total Protein 7.1 Albumin 3.4 Urine Color Cancelled Urine Clarity Cancelled Urine pH Cancelled Ur Specific [place] Cancelled Urine Protein Cancelled Urine Ketones Cancelled Urine Blood Cancelled Urine Nitrite Cancelled Urine Bilirubin Cancelled Urine Urobilinogen Cancelled Ur Leukocyte Esterase Cancelled Urine RBC Urine WBC Ur Epithelial Cells Urine Crystals Urine Bacteria Urine Casts Urine Mucus Ur Culture Indicated? Urine Glucose Cancelled Time Spent with Patient Time Spent with Patient: 35-49 minutes Time was spent: preparing to see the patient(eg.review tests), obtaining and/or reviewing separately otained hiistory, ordering medications,tests, procedures, referring, communicating with other health career information specialist, indepentently interpreting results, counseling the patient and care coordination
[2025-03-16] MEDS: Tamsulosin 0.4 MG CAPCR PO (20:23)
[2025-03-16] MEDS: Atorvastatin 40 MG TAB PO (20:23)
[2025-03-16] MEDS: Apixaban 5 MG TAB PO (20:24)
[2025-03-17 07:27] LABS: Calculated LDL 44 mg/dL (<100); Cholesterol 109 mg/dL (<200); HDL Cholesterol 45 mg/dL (>or=40); Triglyceride 101 mg/dL (<150)
[2025-03-17 08:15] VITALS: BP 142/76; PULSE 116; RESP 16; TEMP 36.1; O2SAT 96
[2025-03-17] MEDS: Apixaban 5 MG TAB PO ×2 (08:29→20:16)
[2025-03-17] MEDS: glipiZIDE 5 MG TAB PO (08:30)
[2025-03-17] MEDS: Metoprolol CR 50 MG TABCR 100 MG PO (08:30)
[2025-03-17] MEDS: Aspirin E.C. 81 MG TABEC PO (08:30)
[2025-03-17] MEDS: Cholecalciferol (Vitamin D3) 1,000 UNIT TAB 5000 UNITS PO (08:31)
[2025-03-17] MEDS: Empaglifozin 10 MG TAB 25 MG PO (08:31)
[2025-03-17] MEDS: Normal Saline Flush 10 ML SYR IVP ×2 (08:33→20:24)
--- NOTE | 2025-03-17 08:44 | CMPROGNOTE_ITS ---
Date of service: 03/17/25 Time of Service: 08:44 Care Management Progress Note Progress Note Text Progress Note Text: Mukul was sitting in the recliner eating lunch with his Doug when CM met with him. While patient does not engage in conversation, his does and the patient appears to be following. Mukul is planning to discharge home with [facility] RN/PT/OT/SHOP ASSISTANT services when he is medically ready to discharge. His stated Mukul was discharged from last week and is very appreciative to restart services. CM notified [facility] of anticipated needs on discharge. Estimated date of discharge is unknown at this time. CM will continue to follow. Discharge Potential Discharge Needs: PCP F/U Appt Anticipated Barriers to Discharge: None Identified Patient/Family Education Needs: Review discharge instructions, discuss Ask Me Three Transportation: Private vehicle Plan: Anticipate Mukul will return home when medically cleared with new RN, PT, OT. He will be driven home via private vehicle by family. He will follow up with his PCP and discharge plan of care. CM will continue to follow. Social Determinants of Health Screening Social Determinants of health last assessed in clinic: 03/17/25 Will the Patient Participate in the Screening?: Yes Do you worry about having a steady place to live?: no Problems where you live: no known problems In the past 12 months, have you had to go without electric, gas, oil or water in your home?: no 1. Within the past 12 months, we worried whether our food would run out before we got money to buy more.: Never true 2. Within the past 12 months, the food we bought just didn't last and we didn't have money to get more.: Never true Has lack of transportation kept you from medical appointments or from doing things needed for daily living?: no Has anyone in your life made you feel unsafe or unsupported?: no How hard is it for you to pay for the very basics like food, housing, medical care, and heating? Would you say it is:: Not hard at all Do you want help finding or keeping work or a job?: I do not need or want help If for any reason you need help with day-to-day activities such as bathing, p reparing meals, shopping, managing finances, etc., do you get the help you need?: I don?t need any help How often do you feel lonely or isolated from those around you?: Never Do you speak a language other than German at home?: No Does the patient want assistance with any of the above?: No
--- NOTE | 2025-03-17 09:21 | PTTR_ITS ---
PT Notes Visit Reasons: Cerebrovascular accident Inpatient Physical Therapy Treatment Note [facility] Date: 03/17/2025 PRECAUTIONS:IV Access, flat affect needs cues for safe hand placement, Sneakers on when out of bed for ambulation SUBJECTIVE: 1st session:Pt reports he feels okay. 2nd Session: He states he is tired and can't walk. ( with encouragement he was agreeable) OBJECTIVE: Pt presented in bed [place] in place. ?Telemetry in place for 2nd session ? PAIN: denies VITALS: monitored via telemetry throughout Therapeutic Activities ([id number]): Direct one-on-one instruction in dynamic activities to improve functional performance. ?? :? ? ? BED MOBILITY/TRANSFERS? Sit-stand: CGA and verbal and tactile cues for hand placement to reach back x 5 trials; (am/pm) Stand-sit: CGA and verbal and tactile cues for hand placement to reach back x 1 trial ?(am/pm) ? bed -Chair:CGA with FWW? Chair-bed: CGA with FWW Provided skilled cues and instruction on performance and technique throughout. ? ambulation: ? Assistive Device:FWW? Weight bearing:full Assist: CGA/SBA and cues for direction/destination ?cues to reduce speed and to keep FWW closer to body ? Distance:? 50 and 100 feet ?in am then 100feet x 2 in pm ? Deviation: reduced step length B; ? PM Session: STAIRS:? ? ? - 3 4 steps? and 2 6 steps with rails CGA step to pattern ? ASSESSMENT:? Pt tolerated sessions well demonstrating improved functional activity tolerance as noted by ability to perform amb with FWW CGA and stairs with 1 sit rest. Pt demonstrating improvement with motor coordination and sequencing for sit to stand. He intermittently requires cues to initiate tasks. Pt requires cues for hand placement with sit to from stand. PLAN: 1-2x/day, 7 days/week x 1 week. Plan of care has been reviewed with the LEARNING AND DEVELOPMENT COORDINATOR providing the service under Physical Therapy direction. Initiate Physical Therapy intervention for strengthening, bed mobility, transfers, gait, stairs, balance training, use of assistive device. TREATMENT CODE/TIME: am session:[id number]/ [id number] pm session: [id number]/ [id number] DISCHARGE RECOMMENDATION: Home with HHPT
[2025-03-17 12:07] VITALS: BP 111/73; PULSE 102; RESP 16; TEMP 36.3; O2SAT 97
[2025-03-17] MEDS: Insulin Aspart 300 UNITS/3 ML PEN SC ×2 (13:12→17:10)
--- NOTE | 2025-03-17 15:45 | RT.EKG_ITS ---
APPROVED REPORT Exam: Resting ECG Reason for Exam: No P waves on tele Patient Location: I HR:102 bpm ECG Measurements Heart Rate 102 AXIS DC [id number] P [id number] QRSd 126 QRS 8 QT 367 T -46 QTc 479 Conclusion Junctional tachycardia...absent P waves, rapid V-rate Right bundle branch block...QRSd>120, terminal axis(90,270)
[2025-03-17] MEDS: Nystatin POWDER 60 GM JAR TP ×2 (17:18→20:23)
--- NOTE | 2025-03-17 17:32 | PGE_ITS ---
Date of Service Date of service: 03/17/25 Time of Service: 17:33 Assessment and Plan Assessment and plan (1) CVA (cerebral vascular accident): Status: Chronic Assessment and plan: MRI showing some attenuation around previous stroke, which is c/w his presenation. Per MRI this could be residual or possible new marginal ischemia. Exam and MS has improved, though not to baseline. Teleneurology recommended resuming apixaban (for h/o atrial fibrillation) and aspirin. He had recent echo, though was poor quality so could repeat with bubble. Teleneuro recommended keppra if symptoms not resolving, so will start this. Get B12, ESR, thiamine per teleneuro Cleared by SEARCH ENGINE MARKETING STRATEGIST, but recommend continuing with home health SEARCH ENGINE MARKETING STRATEGIST on discharge needs to continue to work with PT permissive HTN for first 24 hr, now past that, see below (2) Atrial fibrillation: Status: Chronic Assessment and plan: paroxysmal. Continue metoprolol and apixaban (3) Diabetes: Status: Chronic Assessment and plan: Patient takes glipizide and Jardiance. Has not tolerated metformin. GLP-1 would be associated with lower risk of hypoglycemia and better cardiac and renal outcomes, but he had diarrhea with Trulicity. Could try semaglutide or terzepetide as outpatient instead of glipizide. FS glucose and ISS for now. A1c not at goal. (4) BPH (benign prostatic hyperplasia): Status: Chronic Assessment and plan: Continue with Flomax 0.4 mg nightly (5) Dyslipidemia: Status: Acute Assessment and plan: Continue with atorvastatin, repeat lipids with LDL 44, so continue (6) Hypertension: Status: Chronic Assessment and plan: buttermaker continuous churn goal <130/70, BP is improving close to that. Last microalbumin up so add ARB low dose long acting irbasartan He is DNR per UTD advanced directive Subjective Subjective Patient reports: no new complaints and tolerating a regular diet; denies diarrhea, vomiting, shortness of breath or fever Interval history since last seen: Per , he still itsn't himself. Strength seems back to what it was after initial stroke, but still seems a little confused, staring into space at times, less alert. No abnormal movement/seizures. Would like lares out. Exam Narrative Exam Narrative: GEN: Alert, cooprerates with exam and answers direct questions, but unable to relate history, gives history. Cardiovascular-regular rate and rhythm no murmurs gallops Lungs-clear to auscultation bilaterally with good air exchange Abdomen-soft nontender nondistended protuberant Extremities-no sinus clubbing or edema Neurologic- CN intact other than right facial droop sparing forehead that has improved, less notable today. but UE/LE strength roughly symmetric. no tremor or hyperreflexia. Objective Last Vital Signs Temp 36.3 C L 03/17/25 12:07 Pulse 102 H 03/17/25 12:07 Resp 16 03/17/25 12:07 BP 111/73 03/17/25 12:07 Pulse Ox 97 03/17/25 12:07 Laboratory Results - last 24 hr 03/17/25 06:40 Triglycerides 101 Total Cholesterol 109 LDL Cholesterol, Calc 44 HDL Cholesterol 45 Time Spent with Patient Time Spent with Patient: 35-49 minutes Time was spent: preparing to see the patient(eg.review tests), obtaining and/or reviewing separately otained hiistory, ordering medications,tests, procedures, referring, communicating with other health certified caregiver, indepentently interpreting results, counseling the patient and care coordination
--- NOTE | 2025-03-17 17:35 | SPP_ITS ---
Date of service: 03/17/25 Time of Service: 17:05 Subjective Mukul was contacted during evening meal for diet tolerance check and to screen cognitive-communication. Nursing this date reports very good tolerance of meals per current diet orders, without any incidents of coughing observed or reported by nursing or family. His was also present during this session. also endorses good diet tolerance at this time and feels his swallow is unaffected at this time but reports that she feels his mentation is not to baseline, feels his overall confusion and focus are poor. She observes him staring off into space and struggles to get his attention at times today, and reports he is having a wall rd time with numbers and times. She reports he was seeing CERTIFIED DIALYSIS TECHNICIAN via home health (Lissy from [place]) after his stroke in December and found them to be very helpful. Objective/Assessment/Plan Objective Treatment Techniques & Outcomes: Consulting Database Administrator Goals: Patient will remain free from aspiration-related illness, malnutrition, and dehydration. Short Term Goals: Patient will participate in ongoing diagnostic treatment addressing areas of speech/language/cognition. IN PROGRESS: Naming objects in room: 02/03 with no delays Yes/No questions: 4/6 (patient accurate with egocentric/simple questions, struggled with attention to detail for more difficult questions like Do you eat a banana before you peel it? Following instructions: Single step/simple: 3/3 Double step/simple: 3/3 (e.g., close your eyes then point to the floor) Complex multi-step: 1/3 (e.g., tap your shoulder 3 times before touching your left ear) Repetition: Accurately repeats single words, phrases, and sentences of 4 to 9 words without obvious paraphasias, substitutions, and with adequate immediate recall. Delayed recall was not probed. Orientation: States his full name, Unable to accurately state . States [age] ( is 1940). With some cueing from he is later able to say 1940. Not oriented to year. Speech: Mild slurring, but 100% intelligible, appearing either secondary to cognitive status/fatigue or possibly reflective of global tongue weakness as noted on CN exam yesterday. Reading/Writing: Not tested, reports he was not reading or writing much at all at baseline 2/2 vision issues. Patient will tolerate Soft & Bite Sized Diet and Thin liquids without overt s/s aspiration across 2/2 visits. IN PROGRESS: Trials on lunch tray: soft/bite size carrots, pureed mashed potatoes Oral Phase Findings: WFL except mild prolonged mastication Pharyngeal Phase Findings: Timely swallow reflex Single swallow per bite/sip No cough/throat clear Voice remained clear/strong throughout Patient will tolerate PO trials for consideration of diet upgrade without overt s/s aspiration across 2/2 visits. Time spent: 17:05-17:35 (30 min) Assessment Patient was visited during evening meal for cognitive/communication screening and dysphagia/meal tolerance follow-up. He is with very good tolerance of current diet, and states he is satisfied with current diet textures. Communication screening was very brief, but indicates some mild slurred speech as well as difficulty with comprehension likely mitigated by cognition rather than lexical processing given good repetition and difficulty primarily with more nuanced/complex tasks. At the same time, some difficulty observed and reported with verbal expression of numbers (e.g., dates, times, etc), whereas naming and repetition remained intact. Recommend further evaluation with CERTIFIED DIALYSIS TECHNICIAN either inpatient if patient remains hospitalized next week, or via home-health CERTIFIED DIALYSIS TECHNICIAN on d/c. Especially given patient is familiar with CERTIFIED DIALYSIS TECHNICIAN from [place], it would be useful for them to re-evaluate upon discharge given their familiarity with his PLOF in the home setting. FURTHER CERTIFIED DIALYSIS TECHNICIAN SERVICES: Patient to be followed while on unit to monitor swallow function and further assess speech/language. DISCHARGE: Recommend CERTIFIED DIALYSIS TECHNICIAN Diet Recommendations: SOLIDS- L6 Soft & Bite Sized LIQUIDS - L0 thin liquids MEDICATIONS - As tolerated, one at a time with sips liquid or with applesauce SUPERVISION - 1:1 assist (d/t current R side weakness & confusion) PRECAUTIONS: - [place] upright as able with PO - Remain upright for at least 30 min after eating - Small/slow bites and sips - Use tactile prompting (pinch straw/hand over hand) to limit sips size as needed - Oral hygiene before/after meals COMMUNICATION: Provide information in simple, clear terms. Provide info/instructions/questions 1 step at a time. Provide written supplementation in large/bold text for vision issues.
[2025-03-17] MEDS: Tamsulosin 0.4 MG CAPCR PO (20:16)
[2025-03-17] MEDS: levETIRAcetam 250 MG TAB 1000 MG PO (20:16)
[2025-03-17] MEDS: Atorvastatin 40 MG TAB PO (20:16)
[2025-03-17 20:52] VITALS: BP 117/79; PULSE 88; RESP 22; TEMP 36.8; O2SAT 94
[2025-03-18 07:07] LABS: ESR 34 mm/hr (0-20)
[2025-03-18 07:29] VITALS: BP 103/67; PULSE 100; RESP 17; TEMP 35.5; O2SAT 95
[2025-03-18 08:00] LABS: Vitamin B12 269 pg/mL (193-986)
[2025-03-18] MEDS: Polyethylene Glycol 3350 17 GM PACKET PO (08:42)
[2025-03-18] MEDS: glipiZIDE 5 MG TAB PO (08:43)
[2025-03-18] MEDS: Cholecalciferol (Vitamin D3) 1,000 UNIT TAB 5000 UNITS PO (08:43)
[2025-03-18] MEDS: Empaglifozin 10 MG TAB 25 MG PO (08:43)
[2025-03-18] MEDS: levETIRAcetam 250 MG TAB 1000 MG PO ×2 (08:45→19:47)
[2025-03-18] MEDS: Irbesartan 75 MG TAB PO (08:49)
[2025-03-18] MEDS: Aspirin E.C. 81 MG TABEC PO (08:49)
[2025-03-18] MEDS: Metoprolol CR 100 MG TABCR PO (08:49)
[2025-03-18] MEDS: Apixaban 5 MG TAB PO ×2 (08:49→19:47)
[2025-03-18] MEDS: Nystatin POWDER 60 GM JAR TP ×3 (08:52→19:55)
--- NOTE | 2025-03-18 10:56 | PT.INNT ---
Date of service: 03/18/25 Time of Service: 10:56 PT Notes Visit Reasons: Cerebrovascular accident Patient sleeping during am session. Tried to work in pm with Don, unable to stay awake. Completed PROM to the LE to promote increased arrousal however not attainable. Family stated Chang was up sitting in bedside chair earlier this morning. However primarily has been sleeping since. Increased assistance needed with transfer to bedside chair this am.
--- NOTE | 2025-03-18 11:13 | PGE_ITS ---
Date of Service Date of service: 03/18/25 Time of Service: 11:13 Assessment and Plan Assessment and plan (1) CVA (cerebral vascular accident): Status: Chronic Assessment and plan: -MRI showing some attenuation around previous stroke, which is c/w his presenation. -Per MRI this could be residual or possible new marginal ischemia. -Exam and mental status improved, though not to baseline. -Teleneurology recommended resuming apixaban (for h/o atrial fibrillation) and aspirin. -He had recent echo, though was poor quality so could repeat with bubble. -Teleneuro recommended keppra if symptoms not resolving, this was started on 03/17 -Cleared by RAILWAY EQUIPMENT OPERATOR, but recommend continuing with home health RAILWAY EQUIPMENT OPERATOR on discharge -needs to continue to work with PT (2) Atrial fibrillation: Status: Chronic Assessment and plan: -paroxysmal. -Continue metoprolol and apixaban (3) Diabetes: Status: Chronic Assessment and plan: -Patient takes glipizide and Jardiance, does not tolerated metformin. -FS glucose and ISS for now. A1c not at goal. (4) BPH (benign prostatic hyperplasia): Status: Chronic Assessment and plan: -Continue with Flomax 0.4 mg nightly (5) Dyslipidemia: Status: Acute Assessment and plan: -Continue with atorvastatin, repeat lipids with LDL 44, so continue (6) Hypertension: Status: Chronic Assessment and plan: -superintendent terminal goal <130/70, BP is improving close to that. -Last microalbumin up so add ARB low dose long acting irbasartan Subjective Subjective Interval history since last seen: Patient sleepy this morning, but does not appear to be in any acute distress. Exam Narrative Exam Narrative: fatigued appearing older gentleman laying in bed in no acute distress, oriented to person and place, heart RRR, lungs CTAB, abdomen soft, non-tender, non- distended, mild right sided facial droop sparing the forehead, normal strength in bilateral upper and lower extremities Objective Last Vital Signs Temp 95.9 F L 03/18/25 07:29 Pulse 100 H 03/18/25 07:29 Resp 17 03/18/25 07:29 BP 103/67 03/18/25 07:29 Pulse Ox 95 03/18/25 07:29 Laboratory Results - last 24 hr 03/18/25 06:30 ESR 34 H Vitamin B12 269 Time Spent with Patient Time Spent with Patient: >50 minutes Time was spent: preparing to see the patient(eg.review tests), obtaining and/or reviewing separately otained hiistory, ordering medications,tests, procedures, referring, communicating with other health urgent care, indepentently interpreting results, counseling the patient and care coordination
[2025-03-18 19:25] VITALS: BP 107/64; PULSE 93; RESP 24; TEMP 36; O2SAT 91
[2025-03-18] MEDS: Tamsulosin 0.4 MG CAPCR PO (19:47)
[2025-03-18] MEDS: Atorvastatin 40 MG TAB PO (19:55)
[2025-03-19 07:21] VITALS: BP 98/73; PULSE 89; RESP 16; TEMP 36.5; O2SAT 97
[2025-03-19] MEDS: levETIRAcetam 250 MG TAB 1000 MG PO (08:25)
[2025-03-19] MEDS: Nystatin POWDER 60 GM JAR TP ×3 (08:25→20:03)
[2025-03-19] MEDS: Empaglifozin 25 MG TAB PO (08:26)
[2025-03-19] MEDS: glipiZIDE 5 MG TAB PO (08:26)
[2025-03-19] MEDS: Cholecalciferol (Vitamin D3) 1,000 UNIT TAB 5000 UNITS PO (08:26)
[2025-03-19] MEDS: Irbesartan 75 MG TAB PO (08:26)
[2025-03-19] MEDS: Metoprolol CR 100 MG TABCR PO (08:26)
[2025-03-19] MEDS: Apixaban 5 MG TAB PO ×2 (08:26→20:04)
[2025-03-19] MEDS: Aspirin E.C. 81 MG TABEC PO (08:26)
[2025-03-19] MEDS: Insulin Aspart 300 UNITS/3 ML PEN SC (08:27)
[2025-03-19] MEDS: Normal Saline Flush 10 ML SYR IVP (08:27)
--- NOTE | 2025-03-19 10:43 | PT.INTREAT ---
Date of service: 03/19/25 Time of Service: 10:15 PT Notes Visit Reasons: Cerebrovascular accident Inpatient Physical Therapy Treatment Note [facility] Date: March 19, 2025 PRECAUTIONS:Standard, Fall SUBJECTIVE: Mukul up sitting in bedside chair at time of PT treatment with breakfast tray in front. Remains very sleepy. required mod A x2 from bed to chair this am via nursing OBJECTIVE: Upon observation throughout session was utilizing both UE to scratch his head, reach to his nose and utilizing his R UE more with eating/drinking tasks. notes that he is R hand dominant and was not eating with his R hand until today. Was able to scoop applesauce with his spoon and take it to his mouth independently. Would frequently freeze in motion. With drinking of water forgetting to swallow at times. Difficult time obtaining fluid via straw. ? PAIN: does not appear to be in any distress VITALS: monitored via nursing Therapeutic Activities (45669u5): Direct one-on-one instruction in dynamic activities to improve functional performance. ? BED MOBILITY/TRANSFERS? Supine-sit: mod Ax2 with nursing? Sit-stand: modA x1 with multiple trials and extensive cueing for proper hand placement ? Stand-sit: mod Ax1 with cueing for proper hand placement ? Bed-Chair: mod Ax2 with FWW with nursing ? Provided skilled cues and instruction on performance and technique throughout. Gait Training Direct one-on-one instruction and skilled instruction in: employing an assistive device movement sequencing Provided verbal cues for equipment management and technique with use of FWW ? GAIT? Assistive Device: FWW? Weight bearing: FWB Assist: mod Ax1? Distance:? 0 ft - standing in front of chair. Remains very sleepy? Deviation: Requires continuous cueing to weight shift. Unable to lift legs off from floor in standing march. ?PM Session: Sit-stand: MaxAx2 once standing required minAx2 and FWW Stand-sit: ModAx2 Chair-Bed: unable pm with use of FWW. Required max x2 with stand pivot transfer to return to bed. ? Therapeutic Exercises ([id number]): Direct one-on-one instruction in therapeutic exercises to develop strength, endurance, range of motion and flexibility. ? Exercises ? Seated AA hip flexion x10 R/L Seated AA knee extension x10 R/L Seated AA ankle pumps x10 R/L Seated AA shoulder forward elevation x10 R/L 0-90 degrees Seated bicep curl x10 R/L Seated AA ER x10 R/L? Provided skilled instruction in proper exercise performance Provided skilled manual cues to facilitate proper muscle recruitment and/or form. Requiring significant cueing throughout session. Difficult time staying awake. ASSESSMENT:? Remains very sleepy questioning due to medication change or change in status. Requiring extensive cueing for all transfers and bed mobility. PM unable to transfer without maxA. Required primary AA ROM throughout session. Unable to follow command. Minimal response to yes/no questions. PLAN: Continue with Physical Therapy intervention for strengthening, bed mobility, transfers, gait, stairs, balance training, use of assistive device. DISCHARGE RECOMMENDATIONS:SNF vs Home with HH PT when medically appropriate TREATMENT CODE/TIME: 26606v1 - 15 minutes, 44123 x1- 15 minutes 30 minutes total 9:45-10:10 am Pm session [id number] minutes, [id number]- 15 minutes 30 minutes total 13:45-14:15 pm Rossy Wylie, ETHAN
--- NOTE | 2025-03-19 11:06 | PGE_ITS ---
Date of Service Date of service: 03/19/25 Time of Service: 11:06 Assessment and Plan Assessment and plan (1) CVA (cerebral vascular accident): Status: Chronic Assessment and plan: -MRI showing some attenuation around previous stroke, which is c/w his presenation. -Per MRI this could be residual or possible new marginal ischemia. -Exam and mental status improved, though not to baseline. -Teleneurology recommended resuming apixaban (for h/o atrial fibrillation) and aspirin. -He had recent echo, though was poor quality so could repeat with bubble. -Teleneuro recommended keppra if symptoms not resolving, this was started on 03/17 -decreased keppra from 1000 to 500mg as this may be contributing to patients somnolence -Cleared by LINE MAINTENANCE, but recommend continuing with home health LINE MAINTENANCE on discharge -needs to continue to work with PT (2) Atrial fibrillation: Status: Chronic Assessment and plan: -paroxysmal. -Continue metoprolol and apixaban (3) Diabetes: Status: Chronic Assessment and plan: -Patient takes glipizide and Jardiance, does not tolerated metformin. -FS glucose and ISS for now. A1c not at goal. (4) BPH (benign prostatic hyperplasia): Status: Chronic Assessment and plan: -Continue with Flomax 0.4 mg nightly (5) Dyslipidemia: Status: Acute Assessment and plan: -Continue with atorvastatin, repeat lipids with LDL 44, so continue (6) Hypertension: Status: Chronic Assessment and plan: -jail goal <130/70, BP is improving close to that. -Last microalbumin up so add ARB low dose long acting irbasartan Subjective Subjective Interval history since last seen: Patient remains somewhat sleepy, and his states he is relatively unchanged from previous days. She is wondering if the keppra is making him sleepy. Exam Narrative Exam Narrative: fatigued appearing older gentleman sitting up in the chair in no acute distress, oriented to person and place, heart RRR, lungs CTAB, abdomen soft, non-tender, non-distended, mild right sided facial droop sparing the forehead, normal strength in bilateral upper and lower extremities Objective Last Vital Signs Temp 97.7 F 03/19/25 07:21 Pulse 89 03/19/25 07:21 Resp 16 03/19/25 07:21 BP 98/73 L 03/19/25 07:21 Pulse Ox 97 03/19/25 07:21 Time Spent with Patient Time Spent with Patient: >50 minutes Time was spent: preparing to see the patient(eg.review tests), obtaining and/or reviewing separately otained hiistory, ordering medications,tests, procedures, referring, communicating with other health health care legal assistant, indepentently interpreting results, counseling the patient and care coordination
--- NOTE | 2025-03-19 15:03 | CMPROGNOTE_ITS ---
Date of service: 03/19/25 Time of Service: 15:04 Care Management Progress Note Progress Note Text Progress Note Text: CM checked in on Chang and Patricia today. Chang was up in the bedside chair, but was sleeping. Patricia stated that Chang was doing better, but now seems to have taken a little step back. She feels that Chang will need STR before returning home. Patricia stated that [facility] and [facility] in [place] would be her top 2 choices. Referrals were sent to each of those places by CM today. Patricia was made aware that the referrals are sent, but we may have to send more if he is not accepted at either. She was in full understanding. Discharge Plan: Anticipate that Chang will transfer to SNF for STR once a bed is available. CM will f/u on referrals sent and continue to follow through discharge. Social Determinants of Health Screening Social Determinants of health last assessed in clinic: 03/19/25 Will the Patient Participate in the Screening?: Yes Do you worry about having a steady place to live?: no Problems where you live: no known problems In the past 12 months, have you had to go without electric, gas, oil or water in your home?: no 1. Within the past 12 months, we worried whether our food would run out before we got money to buy more.: Don't know/refused 2. Within the past 12 months, the food we bought just didn't last and we didn't have money to get more.: Don't know/refused Has lack of transportation kept you from medical appointments or from doing things needed for daily living?: no Has anyone in your life made you feel unsafe or unsupported?: no How hard is it for you to pay for the very basics like food, housing, medical care, and heating? Would you say it is:: Not hard at all Do you want help finding or keeping work or a job?: I do not need or want help If for any reason you need help with day-to-day activities such as bathing, preparing meals, shopping, managing finances, etc., do you get the help you need?: I don?t need any help How often do you feel lonely or isolated from those around you?: Never Do you speak a language other than Japanese at home?: No Does the patient want assistance with any of the above?: No
[2025-03-19 19:40] VITALS: BP 114/85; PULSE 90; RESP 22; TEMP 36.4; O2SAT 94
[2025-03-19] MEDS: levETIRAcetam 500 MG TAB PO (20:03)
[2025-03-19] MEDS: Tamsulosin 0.4 MG CAPCR PO (20:04)
[2025-03-19] MEDS: Atorvastatin 40 MG TAB PO (20:04)
[2025-03-20 07:16] VITALS: BP 115/76; PULSE 90; RESP 16; TEMP 36.5; O2SAT 95
[2025-03-20] MEDS: glipiZIDE 5 MG TAB PO (09:57)
[2025-03-20] MEDS: Apixaban 5 MG TAB PO ×2 (09:57→20:02)
[2025-03-20] MEDS: Irbesartan 75 MG TAB PO (09:57)
[2025-03-20] MEDS: Aspirin E.C. 81 MG TABEC PO (09:58)
[2025-03-20] MEDS: Nystatin POWDER 60 GM JAR TP ×3 (09:58→20:01)
[2025-03-20] MEDS: Empaglifozin 25 MG TAB PO (09:58)
[2025-03-20] MEDS: Cholecalciferol (Vitamin D3) 1,000 UNIT TAB 5000 UNITS PO (09:58)
--- NOTE | 2025-03-20 10:01 | W.PM.DS.N ---
Date of service: 03/20/25 Time of Service: 10:01 DS: Diagnosis Discharge Diagnosis (1) CVA (cerebral vascular accident): Status: Chronic (2) Atrial fibrillation: Status: Chronic (3) Diabetes: Status: Chronic (4) BPH (benign prostatic hyperplasia): Status: Chronic (5) Dyslipidemia: Status: Acute (6) Hypertension: Status: Chronic Discharge Plan Disposition Patient Disposition: [facility]NF) Condition: Good Discharge Details Reason For Visit: CVA Admit Date/Time: 03/15/25 23:16 Admit Provider: Timothy Bird Attending Provider: Timothy Bird Primary Care Provider: Valery Cash Hospital Course Hospital Course: Patient initially presented with concerns for worsening strokelike symptoms after experiencing a stroke in the middle of December 2024. Symptoms include increased somnolence and confusion with right-sided facial droop. CT of the head was negative MRI showed questionable increased attenuation and area of previous known stroke. It is recommended the patient be started on Keppra which was initially to 1000 mg twice daily. However, given ongoing somnolence this dose was decreased to 500 mg twice daily with improvement in patient's level of alertness. Patient worked well with speech and physical therapy, and otherwise it was determined that the patient was stable for discharge to subacute rehab. Home Meds and New Rx's Prescriptions: New levetiracetam 500 mg Tablet 500 mg PO BID Qty: 90 0RF irbesartan 75 mg Tablet 75 mg PO DAILY Qty: 90 0RF Continued glipizide 5 mg tablet 5 mg PO DAILY Jardiance 10 mg tablet 20 mg PO DAILY metoprolol succinate 50 mg tablet extended release 24 hr 100 mg PO DAILY furosemide [Lasix] 20 mg tablet 20 mg PO DAILY PRN tamsulosin [Flomax] 0.4 mg capsule 0.4 mg PO QHS cyclosporine [Restasis] 0.05 % dropperette 1 drp ophthalmic (eye) Q12H aspirin [Adult Aspirin Regimen] 81 mg tablet,delayed release (DR/EC) 81 mg PO DAILY atorvastatin [Lipitor] 40 mg tablet 40 mg PO QPM cholecalciferol (vitamin D3) [D3-5000] 125 mcg PO DAILY Eliquis 5 mg tablet 5 mg PO BID Discharge Instructions Activity:: Activity as Tolerated Equipment/Supplies:: No Equipment Needed Diet:: As Tolerated Discharge Orders Discharge Orders: Discharge Order (Routine); Ordered 03/20/25 Ordered By: Christiano Nazario DS: Summary Time Spent with Patient providing and/or coordinating discharge services: Greater than 30 minutes Status at Discharge Functional status at discharge: independent ambulation Overall status at discharge: patient is back to baseline Mental Status: mental status grossly normal Speech and Movement: speech and movement normal Mood: congruent mood Affect: normal affect Exam Narrative Exam Narrative: fatigued appearing older gentleman sitting up in the chair in no acute distress, oriented to person and place, heart RRR, lungs CTAB, abdomen soft, non-tender, non-distended, mild right sided facial droop sparing the forehead, normal strength in bilateral upper and lower extremities Psych Mental Status: mental status grossly normal Speech and Movement: speech and movement normal Mood: congruent mood Affect: normal affect DS: Data Vitals/I&O Vitals and I&O: Vital Signs Temperature 97.7 F 03/20/25 07:16 Temperature Source Temporal Artery Scan 03/20/25 07:16 Pulse 90 03/20/25 07:16 Pulse Rhythm Regular 03/16/25 17:26 Pulse 79 03/16/25 12:31 Respiratory Rate 16 03/20/25 07:16 Respiratory Effort Normal 03/16/25 17:26 Respiratory Depth Normal 03/16/25 17:26 Respiratory Pattern Normal 03/16/25 17:26 Blood Pressure 115/76 03/20/25 07:16 Blood Pressure Mean 89 03/20/25 07:16 Pulse Oximetry 95 03/20/25 07:16 Oxygen Delivery Method Room Air 03/20/25 07:16 Oxygen Flow Rate 0 03/20/25 07:16 Pain Level 0 03/20/25 09:17 Comment rn notified 03/19/25 07:21 Intake & Output 03/19/25 03/20/25 03/20/25 17:59 05:59 17:59 Intake Total 100 / 100 Balance 100 / 100 Weight 210 lb 12.191 oz Intake: Oral 100 / 100 Other: Urine Color Pale Yellow Yellow Urine Appearance Clear Clear Urine Odor None Normal Comment Pt was inc. of urine, COMMERCIAL INTELLIGENCE MANAGER changed brief. Pt was incontinent of urine, moderately wet. Stool Size Small Small Stool Characteristics Soft Soft Brown PFSH All Active Problems (Updated 03/15/25 @ 23:29 by Timothy Bird MD) Hypertension (Chronic) Dyslipidemia (Acute) BPH (benign prostatic hyperplasia) (Chronic) Diabetes (Chronic) Atrial fibrillation (Chronic) CVA (cerebral vascular accident) (Chronic) Tachycardia (Acute) Acute alteration in mental status (Acute) Social History Smoking/Tobacco Use Status: Unknown Smoking risk assessment performed?: Yes Alcohol Intake: current Substance use type: does not use Housing: house Time Spent with Patient Time Spent with Patient: <45 minutes Time was spent: preparing to see the patient(eg.review tests), obtaining and/or reviewing separately otained hiistory, ordering medications,tests, procedures, referring, communicating with other health intensive care specialist, indepentently interpreting results, counseling the patient and care coordination
[2025-03-20 10:08] VITALS: BP 121/80; PULSE 94
--- NOTE | 2025-03-20 11:35 | PGE_ITS ---
Date of Service Date of service: 03/20/25 Time of Service: 11:35 Assessment and Plan Assessment and plan (1) CVA (cerebral vascular accident): Status: Chronic Assessment and plan: -MRI showing some attenuation around previous stroke, which is c/w his presenation. -Per MRI this could be residual or possible new marginal ischemia. -Exam and mental status improved, though not to baseline. -Teleneurology recommended resuming apixaban (for h/o atrial fibrillation) and aspirin. -He had recent echo, though was poor quality so could repeat with bubble. -Teleneuro recommended keppra if symptoms not resolving, this was started on 03/17 -decreased keppra from 1000 to 500mg as this may be contributing to patients somnolence -Cleared by MUSICAL STRING MAKER, but recommend continuing with home health MUSICAL STRING MAKER on discharge -needs to continue to work with PT - [facility]/2025 (2) Atrial fibrillation: Status: Chronic Assessment and plan: -paroxysmal. -Continue metoprolol and apixaban (3) Diabetes: Status: Chronic Assessment and plan: -Patient takes glipizide and Jardiance, does not tolerated metformin. -FS glucose and ISS for now. A1c not at goal. (4) BPH (benign prostatic hyperplasia): Status: Chronic Assessment and plan: -Continue with Flomax 0.4 mg nightly (5) Dyslipidemia: Status: Acute Assessment and plan: -Continue with atorvastatin, repeat lipids with LDL 44, so continue (6) Hypertension: Status: Chronic Assessment and plan: -terminal manager goal <130/70, BP is improving close to that. -Last microalbumin up so add ARB low dose long acting irbasartan Subjective Subjective Interval history since last seen: Patient more awake this morning and alert. He and his understand that he has a bed at rehab tomorrow 03/21/2025. Otherwise has no other complaints concerns at this time. Exam Narrative Exam Narrative: fatigued appearing older gentleman sitting up in the chair in no acute distress, oriented to person and place, heart RRR, lungs CTAB, abdomen soft, non-tender, non-distended, mild right sided facial droop sparing the forehead, normal strength in bilateral upper and lower extremities Objective Last Vital Signs Temp 97.7 F 09/22/25 07:16 Pulse 94 H 03/20/25 10:08 Resp 16 03/20/25 07:16 BP 121/80 03/20/25 10:08 Pulse Ox 95 03/20/25 07:16 Time Spent with Patient Time Spent with Patient: >50 minutes Time was spent: preparing to see the patient(eg.review tests), obtaining and/or reviewing separately otained hiistory, ordering medications,tests, procedures, referring, communicating with other health caregiver services home, indepentently interpreting results, counseling the patient and care coordination
--- NOTE | 2025-03-20 11:47 | PDOC.CMPRO ---
Date of service: 03/20/25 Time of Service: 11:47 Care Management Progress Note Progress Note Text Progress Note Text: Chang was sitting up in bed, having some breakfast, when CM met with him today. Patricia was present as well. Chang is not really communicating well, not really speaking, but he does seem to understand what is being said, and CM did get a little smile out of him today. Chang was accepted at [facility]. Patricia is pleased with this with this bed offer. Chang will transfer early tomorrow, after breakfast. Family, RN and provider are all aware. Chang had an EEG done this morning, results are still pending. Discharge Potential Discharge Needs: Other (transfer to SNF, f/u with facility provider.) Anticipated Barriers to Discharge: None Identified Patient/Family Education Needs: Review discharge instructions, discuss Ask Me Three Transportation: [facility] Transportation: Wheel chair van Plan: Chang will transfer to [facility] tomorrow morning. 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 Chang will transport via [facility] wheelchair van. CM will continue to follow. Social Determinants of Health Screening Social Determinants of health last assessed in clinic: 03/20/25 Will the Patient Participate in the Screening?: Yes Do you worry about having a steady place to live?: no Problems where you live: no known problems In the past 12 months, have you had to go without electric, gas, oil or water in your home?: no 1. Within the past 12 months, we worried whether our food would run out before we got money to buy more.: Don't know/refused 2. Within the past 12 months, the food we bought just didn't last and we didn't have money to get more.: Don't know/refused Has lack of transportation kept you from medical appointments or from doing things needed for daily living?: no Has anyone in your life made you feel unsafe or unsupported?: no How hard is it for you to pay for the very basics like food, housing, medical care, and heating? Would you say it is:: Not hard at all Do you want help finding or keeping work or a job?: I do not need or want help If for any reason you need help with day-to-day activities such as bathing, preparing meals, shopping, managing finances, etc., do you get the help you need?: I don?t need any help How often do you feel lonely or isolated from those around you?: Never Do you speak a language other than Kinyarw[place] at home?: No Does the patient want assistance with any of the above?: No
--- NOTE | 2025-03-20 12:43 | PT.INTREAT ---
PT Notes Visit Reasons: Cerebrovascular accident Inpatient Physical Therapy Treatment Note [facility] Date: 03/20/2025 PRECAUTIONS:Standard, Fall SUBJECTIVE: Patient nonverbal today able to shake head 'no' when asked if he had any pain OBJECTIVE: Patient presented semireclined in bed no active movement bilateral upper or lower extremities noted patient with masked appearance to face. He did open his eyes and respond to touch to left hand. Nurse reports patient started on Keppra 3 days ago with dose reduced this morning secondary to change in functional ability with higher dosage. reports [facility] is [facility]. ? PAIN: does not appear to be in any distress VITALS: monitored via nursing Therapeutic Activities (14225q7): Direct one-on-one instruction in dynamic activities to improve functional performance. ? BED MOBILITY/TRANSFERS? Rolling: Bilateral directions Max assist of 2 patient able to grasp bed rail after hand placed on it ? Supine-sit: Dependent x2 with PROCESS AREA SUPERVISOR assisting?sit to supine dependent x 2 with PROCESS AREA SUPERVISOR assisting ? Therapeutic Exercises (01218y3): Direct one-on-one instruction in therapeutic exercises to develop strength, endurance, range of motion and flexibility. ? Exercises ? Seated PROM hip flexion x10 R/L Seated PROM knee extension x10 R/L Seated PROM ankle pumps x10 R/L Seated PROM shoulder forward elevation x10 R/L 0-90 degrees Seated PROM bicep curl x10 R/L Seated PROM ER x10 R/L? Provided skilled instruction in proper exercise performance Provided skilled manual cues to facilitate proper muscle recruitment and/or form and to reduce extensor tone noted in BUE/BLE. Requiring significant cueing throughout session. Difficult time staying awake. ASSESSMENT: Patient with significant change in functional ability on initial evaluation. Patient now with increased extensor tone BUE BLE trunk and head/neck. Patient with decline in active movement of all limbs. Tone reducing techniques provided for passive range of motion with minimal success. Will continue to monitor for improvement in functional ability as Keppra dose reduces. PLAN: Continue with Physical Therapy intervention for strengthening, bed mobility, transfers, gait, stairs, balance training, use of assistive device. DISCHARGE RECOMMENDATIONS:SNF TREATMENT CODE/TIME: 18127f5 - 15 minutes, 02968 13 minutes 30 minutes total 11 57?12 [id number] Lary Rosenberg, PT
[2025-03-20] MEDS: Insulin Aspart 300 UNITS/3 ML PEN SC (13:00)
--- NOTE | 2025-03-20 14:27 | PDOC.EEG ---
Neurology EEG EEG: [facility] Department of Neurology EEG REPORT Date of Recordin03/20/25 Interpreting Physician: Dr. Renetta Becerril PCP/Referring Provider: Dr. Kamron Sandoval Reason for study: Mukul Lujan is an 85 year-old with recent stroke admitted with increasing somnolence and confusion with right facial droop. Concern for seizure activity vs recurrent stroke. Current Medications: Current Medications Acetaminophen (Acetaminophen 325 Mg Tab) 0 mg PO Q4H PRN PRN Al Hydrox/Mg Hydrox/Simethicone (Mylanta Suspension 30 Ml Cup) 30 ml PO Q2H PRN PRN Apixaban (Apixaban 5 Mg Tab) 5 mg PO BID [facility] Last Admin: 03/20/25 09:57 Dose: 5 mg Aspirin (Aspirin E.C. 81 Mg Tabec) 81 mg PO DAILY [facility] Last Admin: 03/20/25 09:58 Dose: 81 mg Atorvastatin Calcium (Atorvastatin 40 Mg Tab) 40 mg PO QPM [facility] Last Admin: 03/19/25 20:04 Dose: 40 mg Cholecalciferol (Cholecalciferol (Vitamin D3) 1,000 Unit Tab) 5,000 units PO DAILY [facility] Last Admin: 03/20/25 09:58 Dose: 5,000 units Cyclosporine (Cyclosporine 0.4 Ml Ophth Vial) 0 ml OP Q12H [facility] Last Admin: 03/20/25 09:58 Dose: 1 drp Dextrose (Glucose Oral Gel 15 Gm/37.5 Gm Tube) 0 gm PO DIRECTED PRN Dextrose/Water (Dextrose 50%-Water 25 Gm/50 Ml Syr) 0 gm IVP DIRECTED PRN Docusate Sodium (Docusate Sodium 100 Mg Cap) 100 mg PO TID PRN PRN Empagliflozin (Empaglifozin 25 Mg Tab) 25 mg PO DAILY [facility] Last Admin: 03/20/25 09:58 Dose: 25 mg Furosemide (Furosemide 20 Mg Tab) 20 mg PO DAILY PRN PRN Glipizide (Glipizide 5 Mg Tab) 5 mg PO DAILY@0730 [facility] Last Admin: 03/20/25 09:57 Dose: 5 mg IV Miscellaneous Supplies (Iv Access) 1 each IV DIRECTED [facility] Insulin Aspart (Insulin Aspart 300 Units/3 Ml Pen) 0 units SC 0800,1200,1700 [facility]; Protocol Last Admin: 03/20/25 13:00 Dose: 1 unit Irbesartan (Irbesartan 75 Mg Tab) 75 mg PO DAILY [facility] Last Admin: 03/20/25 09:57 Dose: 75 mg Levetiracetam (Levetiracetam 500 Mg Tab) 500 mg PO BID [facility] Last Admin: 03/20/25 10:09 Dose: Not Given Magnesium Hydroxide (Milk Of Magnesia 30 Ml Cup) 30 ml PO DAILY PRN PRN Metoprolol Succinate (Metoprolol Cr 100 Mg Tabcr) 100 mg PO DAILY [facility] Last Admin: 03/20/25 10:08 Dose: Not Given Nystatin (Nystatin Powder 60 Gm Jar) 0 gm TP TID [facility] Last Admin: 03/20/25 09:58 Dose: 1 applic Polyethylene Glycol (Polyethylene Glycol 3350 17 Gm Packet) 17 gm PO DAILY PRN PRN PRN Reason: Constipation Last Admin: 03/18/25 08:42 Dose: 17 gm Sodium Chloride (Normal Saline Flush 10 Ml Syr) 0 ml IVP PRN PRN Sodium Chloride (Normal Saline Flush 10 Ml Syr) 0 ml IVP BID [facility] Last Admin: 03/20/25 09:00 Dose: Not Given Sodium Chloride (Normal Saline 10 Ml Vial) 0 ml IJ DIRECTED PRN Tamsulosin HCl (Tamsulosin 0.4 Mg Capcr) 0.4 mg PO HS [facility] Last Admin: 03/19/25 20:04 Dose: 0.4 mg METHODS: A 21 channel digitized electroencephalogram was performed in the [facility] Clinical Neurophysiology Laboratory. The 10/20 international system of electrode placement was used and bipolar and referential electrode montages were recorded. In addition to EEG the patient was monitored for EKG and lateral/vertical eye movements. Activation procedures of photic stimulation and hyperventilation were performed if applicable. Video was used during activation procedures and during events where applicable. The duration of the recording was 30 minutes. DESCRIPTION OF EEG: The patient was noted to be awake, drowsy, and asleep during the recording. During maximal wakefulness a 6-Hz posterior background rhythm was present which was poorly-modulated, symmetrical, reactive to eye opening, and of moderate voltage. With eye opening the background activity changed to a low voltage mixture of alpha, beta, and occasional theta range frequencies. Faster frequencies were present in the bilateral anterior head regions. There was a normal anterior-posterior voltage gradient. During drowsiness, there was attenuation of the posterior dominant background rhythm and vertex waves. Stage II sleep was present with symmetrical sleep spindles, K-complexes, and vertex waves. During wakefulness, there was generalized, moderate-amplitude, non-rhythmic theta activity throughout. Activating Procedures: Photic stimulation was performed which produced no posterior driving response at various flash frequencies. Hyperventilation was not performed. EKG: EKG revealed normal sinus rhythm. INTERPRETATION: This EEG is abnormal due to generalized, non-rhythmic theta slowing. PRIOR EEG: none CLINICAL CORRELATION: The background slowing is suggestive of a mild-moderate diffuse cerebral encephalopathy of broad differential including toxic-metabolic etiology. No focal regions of cerebral dysfunction or epileptiform activity was present. Clinical correlation is advised. Renetta Becerril MD Date of service: 03/20/25
[2025-03-20 19:27] VITALS: BP 111/77; PULSE 89; RESP 20; TEMP 36.3; O2SAT 97
[2025-03-20] MEDS: Atorvastatin 40 MG TAB PO (20:02)
[2025-03-20] MEDS: Tamsulosin 0.4 MG CAPCR PO (20:02)
[2025-03-20] MEDS: levETIRAcetam 500 MG TAB PO (20:02)
[2025-03-21 07:04] VITALS: BP 123/78; PULSE 109; RESP 16; TEMP 35.7; O2SAT 98
--- NOTE | 2025-03-21 07:55 | CMDISCH_ITS ---
Date of service: 03/21/25 Time of Service: 07:55 LACE Index Scoring Tool Questions: Length of Stay (in days): 4 - 6 Was the patient admitted via the E.D.?: Yes Comorbidities: Diabetes w/o Complication E.D. Visits: 2 Answers: Total Score: 10 Risk of Readmission: High Risk Care Management Discharge Plan Reason for Hospitalization: CVA Discharge Plan: Chang will transfer to [facility] today. 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 Chang will transport via EMS due to his current mobility. Patient/Family Education Needs: review of discharge instructions, activity, limitations, and plan of care. Discuss ask me three
[2025-03-23 00:48] LABS: Thiamine (Vitamin B1), WB 150 nmol/L (70-180)
== END 2025-03-21 09:38 | disposition skilled nursing facility (03) | DRG 66 ==
LOC: ER 23:24 → EDHOLD 03-16 00:36 → MS 03-16 16:18
PROVIDERS: Family Medicine; Admitting Provider Hospitalist; Emergency Provider Emergency Medicine; PCP Nurse Practitioner Family; Responsible Provider Family Medicine; Visit Provider Hospitalist
DX: I63.9 Cerebral infarction, unspecified (principal); E11.9 Type 2 diabetes mellitus without complications; N40.0 Benign prostatic hyperplasia without lower urinary tract symptoms; E78.5 Hyperlipidemia, unspecified; I10 Essential (primary) hypertension; Z79.84 Long term (current) use of oral hypoglycemic drugs; R29.810 Facial weakness; I45.10 Unspecified right bundle-branch block; Z86.73 Personal history of transient ischemic attack (TIA), and cerebral infarction without residual deficits; Z66 Do not resuscitate; I48.0 Paroxysmal atrial fibrillation
CPT/HCPCS: 00123; 36415; 51701; 51798; 70496; 70498; 70553; 80053; 80061; 85652; 92610; 93005; 95819; 97110; 97116; 97162; 97530; 99285; 81003; 81015; 82607; 83735; 84425; 84484; 85025; 85610; 85730; 92523; 93010; 99223; 99232; 99233; 99238; J1815; J3490

== ENCOUNTER → 2025-03-21 09:18 | Outpatient (BNVA) | payer MEDICARE, BC, SELFPAY | PROVIDERS: PCP Nurse Practitioner Family; Referring Provider Nurse Practitioner Family; Visit Provider Psychiatry & Neurology Neurology ==

== ENCOUNTER 2025-03-30 08:52 | Outpatient (REF) | payer SELFPAY ==
[2025-03-30 09:30] LABS: ALT 31 U/L (16-63); AST 28 U/L (15-37); Albumin 3.7 g/dL (3.4-5.0); Alkaline Phosphatase 108 U/L (46-116); Anion Gap 10.2 mmol/L (3-11); BUN 16 mg/dL (7-18); Bilirubin, Total 1.2 mg/dL (0.2-1.0); CO2 27.8 mmol/L (21.0-32.0); Calcium 9.5 mg/dL (8.5-10.1); Chloride 108 mmol/L (98-107); Estimated GFR 53.50 (mL/min/1.73m2); Glucose 97 mg/dL (74-106); Potassium 4.1 mmol/L (3.5-5.1); Sodium 146 mmol/L (136-145); Total Protein 6.9 g/dL (6.4-8.2)
[2025-03-30 09:35] LABS: Abs Immature Grans 0.02 10^3/uL (0.0-0.06); HCT 50.9 % (40.0-50.0); HGB 15.9 g/dL (13.5-17.5); Immature Grans % 0.2 %; MCH 26.5 pg (27.0-33.0); MCHC 31.2 % (32.0-36.0); MCV 85 fL (80-95); MPV 11.5 fL (8.0-11.0); Platelet Count 265 10^3/uL (130-400); RBC 6.00 10^6/uL (4.36-5.78); RDW 14.7 % (11.8-14.1); RDW-SD 45.6 fL; WBC 9.28 10^3/uL (4.4-10.8)
== END 2025-03-30 08:53 | disposition home or self-care (01) ==
LOC: LBN 08:52
PROVIDERS: PCP Nurse Practitioner Family; Visit Provider Nurse Practitioner Adult Health
DX: N18.31 Chronic kidney disease, stage 3a (principal)
CPT/HCPCS: 80053; 85025

== ENCOUNTER 2025-05-16 19:03 | Outpatient (REF) | payer MEDICARE, BC, SELFPAY ==
[2025-05-16 19:56] LABS: Glucose >=1000 mg/dL (Negative)
[2025-05-16 20:05] LABS: WBC >50 HPF (0-5)
== END 2025-05-16 19:04 | disposition home or self-care (01) ==
LOC: NCHCN 19:03
PROVIDERS: PCP Nurse Practitioner Family; Visit Provider Nurse Practitioner Family
DX: N39.0 Urinary tract infection, site not specified (principal); N18.31 Chronic kidney disease, stage 3a
CPT/HCPCS: 81003; 81015; 87086

== ENCOUNTER 2025-06-27 09:47 | Outpatient (CLI) | payer MEDICARE, BC, SELFPAY ==
--- NOTE | 2025-06-27 09:45 | RT.EKG_ITS ---
APPROVED REPORT Exam: Resting ECG Reason for Exam: tachycardia Patient Location: O HR:70 bpm ECG Measurements Heart Rate [address] [id number] P [id number] QRSd 127 QRS 95 QT 453 T 24 QTc 489 Conclusion Atrial fibrillation...V-rate 54- 79, irreg A-activity RBBB and LPFB...QRSd >120mS, axis(90,210)
== END 2025-06-27 09:48 | disposition home or self-care (01) ==
LOC: DI.CARD 09:48
PROVIDERS: PCP Nurse Practitioner Family; Visit Provider Internal Medicine Cardiovascular Disease
DX: R00.0 Tachycardia, unspecified (principal); I48.0 Paroxysmal atrial fibrillation; I45.10 Unspecified right bundle-branch block; I44.5 Left posterior fascicular block
CPT/HCPCS: 93010

== ENCOUNTER → 2025-06-27 11:09 | Outpatient (BNVA) | payer MEDICARE, BC, SELFPAY | PROVIDERS: PCP Nurse Practitioner Family; Referring Provider Nurse Practitioner Family; Visit Provider Internal Medicine Cardiovascular Disease | DX: I63.9 Cerebral infarction, unspecified (principal); I48.20 Chronic atrial fibrillation, unspecified; R00.0 Tachycardia, unspecified | CPT/HCPCS: 99214; 93005 ==